=== PATIENT | female | born 1970 | race Caucasian/White ===

== ENCOUNTER 2021-03-21 09:44 | Outpatient (REF) | payer BC, SELFPAY ==
--- NOTE | ~2021-03-21 | XR_ITS ---
EXAMINATION: XR FOOT, LEFT CLINICAL INFORMATION: Pain COMPARISON: Left ankle x-ray 02/23/2021 TECHNIQUE: AP, lateral, and oblique views of the left foot. FINDINGS: Bone alignment is normal. No fracture or dislocation is seen. There is a small osteophyte along the lateral aspect of the IP joint of the great toe. Joint spaces are otherwise normal. There is a small osteophyte projecting off the anterior talus. There is a small plantar calcaneal spur. Soft tissues are unremarkable. XR/XR foot LT min 3V IMPRESSION: Small osteophytes at the IP joint of the great toe, anterior talus and plantar surface of the calcaneus. Otherwise unremarkable exam.
== END 2021-03-21 09:45 | disposition home or self-care (01) ==
LOC: HO.HOSX 09:44
PROVIDERS: PCP Internal Medicine; Visit Provider Physician Assistant
DX: S93.402A Sprain of unspecified ligament of left ankle, initial encounter (principal)
CPT/HCPCS: 73630

== ENCOUNTER 2021-09-01 10:23 | Emergency (ER) | payer BC, SELFPAY ==
--- NOTE | ~2021-09-01 | XR_ITS ---
EXAMINATION: XR CHEST CLINICAL INFORMATION: Shortness of breath. COMPARISON: None TECHNIQUE: Frontal view of the chest was obtained. FINDINGS: No significant abnormality is noted involving the heart, lungs, mediastinum, bony thorax or soft tissues. XR/XR chest 1V IMPRESSION: Unremarkable examination.
[2021-09-01 10:34] VITALS: BP 180/105; PULSE 84; RESP 20; TEMP 36.8; O2SAT 100; BMI 25.0
[2021-09-01 10:59] LABS: COVID-19 Test Negative (Negative); IDNOW Serial# 55D5AD1C
--- NOTE | 2021-09-01 11:17 | ED.URI ---
HPI - URI/Sore Throat General Chief Complaint: Upper Respiratory Symptoms Stated Complaint: Covid+, SOB /Congestion Time Seen by Provider: 09/01/21 10:56 Source: patient Mode of arrival: ambulatory Limitations: no limitations History of Present Illness HPI Narrative: This is a 50 years old female presented to the ED with chief cough or congestion malaise x3 days she is concerned about COVID that she did the test home which was positive. She has no comorbidities MD elicited complaint: rhinorrhea and nasal congestion Onset (ago): day(s) (2) Consistency: constant Severity: mild Description of mucous: clear Able to tolerate fluids by mouth: Yes Exacerbating factors: nothing Relieving factors: nothing Context: sick contacts Associated symptoms: denies other symptoms Related Data Home Medications Medication Instructions Recorded Confirmed aspirin 81 mg tablet,delayed 81 mg PO DAILY 02/23/21 02/23/21 release (Adult Low Dose Aspirin) cyanocobalamin (vitamin B-12) 1,000 mcg IM Q4W ml 02/23/21 02/23/21 1,000 mcg/mL injection solution gabapentin 300 mg capsule 300 mg PO BEDTIME 02/23/21 02/23/21 hydroxyzine HCl 25 mg tablet 25 mg PO TID PRN 02/23/21 02/23/21 lisinopril 10 mg tablet 10 mg PO DAILY 02/23/21 02/23/21 metoprolol succinate 25 mg 25 mg PO DAILY 02/23/21 02/23/21 tablet,extended release 24 hr sertraline 100 mg tablet 100 mg PO DAILY tab 02/23/21 02/23/21 sertraline 25 mg tablet 25 mg PO DAILY 02/23/21 02/23/21 trazodone 50 mg tablet 50 mg PO DAILY 02/23/21 02/23/21 vitamin d PO 02/23/21 albuterol sulfate 90 mcg/actuation 0 mcg INHALATION 03/21/21 aerosol inhaler budesonide-formoterol HFA 160 INHALATION 03/21/21 mcg-4.5 mcg/actuation aerosol inhaler (Symbicort) Previous Rx's Medication Instructions Recorded phenazopyridine 200 mg tablet 200 mg PO TID 3 Days #9 tab 08/14/21 (Pyridium) sulfamethoxazole 800 1 tab PO BID 7 Days #14 tab 08/14/21 mg-trimethoprim 160 mg tablet (Bactrim DS) Allergies Allergy/AdvReac Type Severity Reaction Status Date / Time No Known Allergies Allergy Verified 08/14/21 10:10 Review of Systems Constitutional: Constitutional: Reports no additional constitutional complaints Eyes: Eyes: Reports no additional eye complaints Cardiovascular: Cardiovascular: Reports no additional cardiovascular complaints Respiratory: Respiratory: Reports no additional respiratory complaints Genitourinary: Genitourinary: Reports no additional female genitourinary complaints [facility] Past Medical History Medical History Left ankle sprain Social History Social History Alcohol intake: never Patient Tobacco Use Status: Never used Tobacco Advance Directives: No Advance Directives Information Provided: No Current occupational status: employed 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 Physical Exam Vital Signs: Vital Signs: Last Vital Signs Temp 98.3 F 09/01/21 10:34 Pulse 90 09/01/21 12:45 Resp 19 09/01/21 12:45 BP 150/69 H 09/01/21 12:45 Pulse Ox 97 09/01/21 12:45 BMI result Body Mass Index 25.0 Const: Other: she looks well she has not toxic-appearing General: cooperative and comfortable Nutritional Appearance: average body habitus Orientation/consciousness: patient oriented x3 HEENT: Head: Yes normal to inspection Ears: hearing grossly normal bilaterally General nose exam: Normal external nose present Face and sinus: Yes normal facial exam Mouth: Normal oral and palatal mucosa present Throat: Yes posterior oropharynx normal Neck: Neck: Yes normal visual inspection Chest: Chest palpation & inspection: normal inspection of the chest Breast/axilla inspection: normal inspection of the breasts Resp: Effort & Inspection: normal respiratory effort Auscultation: clear to auscultation bilaterally Cardio: Rate: regular rate Rhythm: regular rhythm GI: Inspection: Yes normal to inspection Palpation (GI): Soft to palpation Percussion: Yes normal to percussion Auscultation: normal bowel sounds Neuro: General: patient oriented x3 Course Reevaluation(s) Reevaluation #1: she remained hemodynamically stable O2 sat is 100%, PCR positive for COVID but the patient can be discharged home a oxygenating well afebrile and nontoxic MDM - URI/Sore Throat MDM Narrative Medical decision making narrative: this is a 50 years old female presented with cough congestion concerned for COVID we will repeat the COVID test will do a chest x-ray Lab Data Labs: Lab Results 09/01/21 09/01/21 Range/Units 10:40 11:19 COVID-19 ([facility]) Negative (Negative) COVID-19 Clin Com See Note Influenza Type A (PCR) NEGATIVE (Negative) Influenza Type B (PCR) NEGATIVE (Negative) RSV RNA Qual (PCR) NEGATIVE (Negative) SARS-CoV-2 RNA (RT-PCR) POSITIVE A (Negative) Imaging Data Chest x-ray: Radiologist's impression: cc: Guzman Ray MD~ EXAMINATION: XR CHEST CLINICAL INFORMATION: Shortness of breath. COMPARISON: None TECHNIQUE: Frontal view of the chest was obtained. FINDINGS: No significant abnormality is noted involving the heart, lungs, mediastinum, bony thorax or soft tissues. XR/XR chest 1V IMPRESSION: Unremarkable examination. ? Dictated By: Rito Power MD Signed By: <Electronically signed by Rito Power MD in OV> 09/01/21 1151 DD/ 1115 Discharge Plan Discharge Clinical Impression: COVID-19 Patient Disposition: Home, Self-Care Instructions: COVID-19 (Coronavirus Disease 2019) (ED) Prescriptions: No Action hydroxyzine HCl 25 mg tablet 25 mg PO TID PRN0RF sertraline 100 mg tablet 100 mg PO DAILY 0RF sertraline 25 mg tablet 25 mg PO DAILY 0RF aspirin [Adult Low Dose Aspirin] 81 mg tablet,delayed release (DR/EC) 81 mg PO DAILY 0RF metoprolol succinate 25 mg tablet extended release 24 hr 25 mg PO DAILY 0RF vitamin d PO 0RF gabapentin 300 mg capsule 300 mg PO BEDTIME 0RF lisinopril 10 mg tablet 10 mg PO DAILY 0RF trazodone 50 mg tablet 50 mg PO DAILY 0RF cyanocobalamin (vitamin B-12) 1,000 mcg/mL solution 1,000 mcg IM Q4W 0RF sulfamethoxazole-trimethoprim [Bactrim DS] 800-160 mg tablet 1 tab PO BID 7 Days Qty: 14 0RF phenazopyridine [Pyridium] 200 mg tablet 200 mg PO TID 3 Days Qty: 9 0RF budesonide-formoterol [Symbicort] 160-4.5 mcg/actuation HFA aerosol inhaler inhalation 0RF albuterol sulfate 90 mcg/actuation HFA aerosol inhaler 0 mcg inhalation 0RF Referrals: No Brambila MD [Primary Care Provider] - 3 days Stand Alone Forms: Work/School Release Interventions: ED Discharge Assessment Last Done: 09/01/21 12:46 Discharge Date/Time: 09/01/21 12:47
[2021-09-01 12:02] LABS: Influenza A PCR NEGATIVE (Negative); Influenza B PCR NEGATIVE (Negative); Resp Syncy Virus RNA Qual PCR NEGATIVE (Negative); SARS COV2 PCR INHOUSE POSITIVE (Negative)
[2021-09-01 12:45] VITALS: BP 150/69; PULSE 90; RESP 19; O2SAT 97
== END 2021-09-01 12:47 | disposition home or self-care (01) ==
PROVIDERS: Emergency Provider Emergency Medicine; PCP Internal Medicine
DX: U07.1 COVID-19 (principal); R06.02 Shortness of breath; Z79.899 Other long term (current) drug therapy; Z79.82 Long term (current) use of aspirin
CPT/HCPCS: 0241U; 71045; 87635; 99283

== ENCOUNTER 2021-09-21 08:32 | Outpatient (REF) | payer BC, SELFPAY ==
[2021-09-21 11:11] LABS: MANUAL DIFF FLAG NO
[2021-09-21 11:15] LABS: Appearance Urine CLEAR; Color Urine YELLOW; Glucose Urine UA NEG (NEG); Leukocyte Esterase Urine NEG (NEG); Nitrite Urine NEG (NEG); Specific Gravity - Urine 1.025 (1.005-1.025); Urine Blood 2+ (NEG); Urine Ketones NEG (NEG); Urine Protein NEG (NEG-TRACE)
[2021-09-21 11:26] LABS: Basophils Percent Auto 0.5 % (0-2); Eosinophils Absolute Auto 0.1 X10*3/uL (0.0-0.4); Eosinophils Percent Auto 0.9 % (0-4); Hematocrit 40.4 % (37.0-47.0); Hemoglobin 13.2 g/dl (12.0-16.0); Imm Gran Abs Auto 0.01 X10*3/uL (0.00-0.03); Imm Gran Pct Auto 0.2 % (0.0-0.4); Lymphocytes Absolute Auto 1.8 X10*3/uL (1.2-4.9); Lymphocytes Percent Auto 32.9 % (20-40); Mean Corpuscular HGB Conc 32.7 g/dl (31.0-35.0); Mean Corpuscular Hemoglobin 30.9 pg (27.0-33.0); Mean Corpuscular Volume 94.6 fL (80.0-98.0); Mean Platelet Volume 9.5 fL (9.4-12.3); Monocytes Absolute Auto 0.4 X10*3/uL (0.1-1.2); Monocytes Percent Auto 7.6 % (2-11); Neutrophils Absolute Auto 3.2 x10*3/uL (2.0-8.3); Neutrophils Percent Auto 57.9 % (45-73); Platelet Count 302 X10*3/uL (160-400); Red Blood Count 4.27 X10*6/uL (4.20-5.50); White Blood Count 5.6 X10*3/uL (4.8-10.8)
[2021-09-21 11:54] LABS: Alanine Aminotransferase 21 U/L (0-31); Albumin Level 4.7 g/dL (3.5-5.0); Alkaline Phosphatase 81 U/L (39-117); Anion Gap 12 (12-20); Aspartate Amino Transferase 27 U/L (5-31); Bilirubin Total 0.3 mg/dL (0.0-1.0); Blood Urea Nitrogen 19 mg/dL (9-16); Calcium 9.9 mg/dL (8.4-10.2); Carbon Dioxide 27 mmol/L (22-29); Chloride 105 mmol/L (96-108); Cholesterol 357 mg/dL; Estimated Glomerular Filt Rate 59; Glucose Fasting 107 mg/dL (60-99); HDL Cholesterol 59 mg/dL; LDL Cholesterol Calculated 256 mg/dl; Potassium 4.4 mmol/L (3.3-5.1); Sodium 140 mmol/L (135-145); TSH reflex Free T4 2.36 uIU/mL (0.32-4.0); Triglycerides 213 mg/dL
[2021-09-21 11:56] LABS: Squamous Epithelial Cell Urine 2+ /LPF
[2021-09-21 11:57] LABS: Bacteria Urine 2+ /LPF
[2021-09-21 11:58] LABS: Amorphous Sediment Urine 1+ /LPF; WBC Urine 0 /HPF (0-4)
== END 2021-09-21 08:33 | disposition home or self-care (01) ==
LOC: HO.HMGCLDS 08:32
PROVIDERS: Visit Provider Internal Medicine
DX: E89.0 Postprocedural hypothyroidism (principal); I10 Essential (primary) hypertension; J44.9 Chronic obstructive pulmonary disease, unspecified; Z98.890 Other specified postprocedural states; Z87.448 Personal history of other diseases of urinary system
CPT/HCPCS: 36415; 80053; 80061; 81001; 84443; 85025

== ENCOUNTER 2021-11-13 09:24 | Outpatient (REF) | payer BC, SELFPAY ==
[2021-11-13 12:14] LABS: C Reactive Protein 0.31 mg/dL (< or = 0.50); Cholesterol 194 mg/dL; HDL Cholesterol 57 mg/dL; LDL Cholesterol Calculated 104 mg/dl; Triglycerides 167 mg/dL
[2021-11-13 12:32] LABS: Erythrocyte Sedimentation Rate 16 MM/HR (0-20)
[2021-11-16 08:51] LABS: Transglutaminase IgA <1.0 U/mL
[2021-11-17 19:22] LABS: Calprotectin, Fecal 5 mcg/g
[2021-11-19 15:22] LABS: Endomysial IgA Antibody Negative (Negative)
== END 2021-11-13 09:25 | disposition home or self-care (01) ==
LOC: HO.HMGCLDS 09:24
PROVIDERS: Absent Provider Physician Assistant; PCP Internal Medicine; Visit Provider Internal Medicine
DX: E78.5 Hyperlipidemia, unspecified (principal); R19.7 Diarrhea, unspecified
CPT/HCPCS: 36415; 80061; 83993; 85652; 86140; 86231; 86364

== ENCOUNTER 2021-12-12 15:09 | Outpatient (REF) | payer BC, SELFPAY ==
--- NOTE | ~2021-12-12 | XR_ITS ---
EXAMINATION: XR RIBS, BILATERAL CLINICAL INFORMATION: Right pleurodynia. No trauma COMPARISON: September 01, 2021 TECHNIQUE: PA chest and three-view right ribs. FINDINGS: Lungs are clear. No consolidation, pneumothorax, or pleural effusion. The cardiomediastinal silhouette and pulmonary vasculature are normal. No acute displaced right rib fracture is seen. There is a question of a permeative pattern as well as some sclerosis involving the anterolateral aspect of the right sixth rib. CT scan may be of help in further evaluation of this finding. XR/XR ribs BI min 4V w CXR1V IMPRESSION: No acute parenchymal disease within the chest. No acute displaced right rib fracture. Question abnormality anterolateral aspect of the right sixth rib.
== END 2021-12-12 15:10 | disposition home or self-care (01) ==
LOC: HO.HMGCX 15:09
PROVIDERS: Visit Provider Physician Assistant
DX: R07.81 Pleurodynia (principal)
CPT/HCPCS: 71111

== ENCOUNTER 2021-12-31 08:18 | Outpatient (REF) | payer BC, SELFPAY ==
--- NOTE | ~2021-12-31 | CT_ITS ---
EXAMINATION: CT CHEST WITHOUT CONTRAST CLINICAL INFORMATION: History of right-sided pleurodynia. Questionable abnormality of anterolateral right sixth rib on chest radiograph. COMPARISON: CXR from 09/01/2021 and radiographs of ribs from 12/12/2021. TECHNIQUE: Multidetector volumetric CT imaging of the chest was done. Axial MIP volume rendering provided. Sagittal and coronal reformatted images were obtained. This CT examination was performed using dose optimization techniques as appropriate, variously including the following: *Automated exposure control *Adjustment of mA and/or kV according to patient size (this includes techniques or standardized protocols for targeted exams where dose is matched to indication/reason for exam; i.e. extremities or head) *Use of iterative reconstruction technique DLP: 130 mGy-cm FINDINGS: LUNGS AND PLEURA: Trachea and central airways are widely patent and normal in caliber. There are several small foci of mucus plugging in right and left upper lobe bronchi. There appears to be minimal centrilobular emphysema of upper lobes. No interstitial lung disease. Small, 0.2 cm calcified granuloma of the lateral left lung apex. A solid, smoothly marginated noncalcified nodule of 0.4 cm average diameter is present in the lateral left lower lobe (image 478, series 7). 0.4 cm solid nodule of the lingula (image 371, series 7). No pulmonary mass, consolidation or pleural effusion. CARDIOVASCULAR: The heart size is normal. No pericardial effusion. Thoracic aorta and pulmonary arteries are normal in caliber. MEDIASTINUM AND LOWER NECK: No mediastinal mass. The esophagus is unremarkable. The left thyroid lobe is absent. LYMPHATICS: No pathologic sized lymph nodes. UPPER ABDOMEN: 1.1 cm simple cyst in the left lobe of the liver. SKELETAL AND CHEST WALL: Mild and moderate multilevel discovertebral degenerative change of the thoracic spine. Chronic mild anterior height loss of the T8 vertebral body. No acute fractures. No suspicious bone lesions. Specifically, no evidence of a permeative lesion of the right sixth rib. CT/CT chest wo con IMPRESSION: * Several small foci of mucus plugging are observed in upper lobe bronchi. This is compatible with sequela of inflammation of airways. No evidence of pneumonia, mass or lymphadenopathy. * Small calcified and noncalcified pulmonary nodules are detected. Based on use of Fleischner Society guidelines for incidentally detected nodules of < 0.6 cm size, chest CT follow-up is not recommended in a low-risk patient and is considered optional (at 12 months) and a high risk patient. * No suspicious bone lesions.
== END 2021-12-31 08:19 | disposition home or self-care (01) ==
LOC: HO.CT 08:18
PROVIDERS: PCP Internal Medicine; Visit Provider Internal Medicine
DX: M89.9 Disorder of bone, unspecified (principal); R91.8 Other nonspecific abnormal finding of lung field
CPT/HCPCS: 71250

== ENCOUNTER 2022-01-19 10:11 | Outpatient (REF) | payer BC, SELFPAY ==
--- NOTE | ~2022-01-19 | MM_ITS ---
EXAMINATION: MM SCREENING DIGITAL BREAST TOMOSYNTHESIS, BILATERAL CLINICAL INFORMATION: Screening. Asymptomatic. The lifetime risk of breast cancer based on the Tyrer-Cuzick Model is 5%. COMPARISON: Outside mammography: 09/12/2018, 08/30/2017 ([facility] [place]). TECHNIQUE: Digital breast tomosynthesis is performed in both the craniocaudal and mediolateral oblique views along with computer-aided detection (CAD). Synthesized 2D images are generated from the tomosynthesis. Additional exaggerated bilateral CC and views are provided. FINDINGS: The breasts are heterogeneously dense, which may obscure small masses (ACR BI-RADS breast composition Category c). Breast tissue composition borders on average fibroglandular. There is no interval mass or architectural abnormality or developing density. The axilla and skin contours are unremarkable. There are scattered punctate calcifications right breast. Left breast has interval multiple punctate regional calcifications central and lower outer breast. Patient will be recalled for additional imaging to further characterize. MM/MM tomosynthesis screening BI IMPRESSION: Left: -Multiple regional punctate calcifications central and lower outer left breast. Right: -No mammographic evidence of malignancy. ASSESSMENT: BI-RADS 0: Incomplete - Need Additional Imaging Evaluation RECOMMENDATION: 1. Additional views of the left breast (magnification CC, magnification ML). 2. Radiology department staff will contact the patient for additional imaging. This patient's information was entered into a reminder system with a target due date for their next mammogram.
== END 2022-01-19 10:12 | disposition home or self-care (01) ==
LOC: HO.MAMMO 10:11
PROVIDERS: PCP Internal Medicine; Visit Provider Internal Medicine
DX: Z12.31 Encounter for screening mammogram for malignant neoplasm of breast (principal)
CPT/HCPCS: 77063; 77067

== ENCOUNTER 2022-02-01 14:35 | Outpatient (REF) | payer BC, SELFPAY ==
--- NOTE | ~2022-02-01 | MM_ITS ---
EXAMINATION: MM DIAGNOSTIC DIGITAL MAMMOGRAPHY, LEFT CLINICAL INFORMATION: Recall for regional calcifications central lower outer left breast. TC score 5%. COMPARISON: Mammography: 01/19/2022, outside mammography 09/12/2018, 08/30/2017 ([place]). TECHNIQUE: Digital mammography is performed in the following views: Magnification CC x2, magnification ML x3. FINDINGS: The breasts are heterogeneously dense, which may obscure small masses (ACR BI-RADS breast composition Category c). The additional views demonstrate loosely grouped regional calcifications central posterior central lower outer left breast. There were also similar calcifications in this area on outside imaging dating back to 2018. There is questionable mild increased, difficult to confirm given comparison of magnification views currently with prior standard mammography. Left breast will be reassessed again with mammography in 6 months. Results are provided to the patient and her spouse at time of visit. MM/MM added views LT IMPRESSION: Probable benign chronic calcifications central lower outer left breast. ASSESSMENT: BI-RADS 3: Probably Benign RECOMMENDATION: Diagnostic left mammography in 6 months. This patient's information was entered into a reminder system with a target due date for their next mammogram.
== END 2022-02-01 14:36 | disposition home or self-care (01) ==
LOC: HO.MAMMO 14:35
PROVIDERS: PCP Internal Medicine; Visit Provider Internal Medicine
DX: R92.1 Mammographic calcification found on diagnostic imaging of breast (principal)
CPT/HCPCS: 77065

== ENCOUNTER 2022-02-12 05:51 | Inpatient (IN) | payer BC, SELFPAY ==
[2022-02-12] VITALS (21 sets, daily range): BP systolic 96–126; BP diastolic 57–75; PULSE 68–133; RESP 16–21; TEMP 36.5–37.7; O2SAT 95–972; BMI 20.7
--- NOTE | ~2022-02-12 | CT_ITS ---
EXAMINATION: CT ABDOMEN AND PELVIS WITH CONTRAST CLINICAL INFORMATION: Abdominal pain and vomiting. COMPARISON: None TECHNIQUE: Multidetector volumetric images were obtained from the superior aspect of the liver through the pubic symphysis following administration 85 mL of Omnipaque 350 intravenous contrast. Sagittal and coronal reformatted images were obtained on the technologist's workstation. Oral contrast: No This CT examination was performed using dose optimization techniques as appropriate, variously including the following: *Automated exposure control *Adjustment of mA and/or kV according to patient size (this includes techniques or standardized protocols for targeted exams where dose is matched to indication/reason for exam; i.e. extremities or head) *Use of iterative reconstruction technique DLP: 415 mGy-cm FINDINGS: LUNG BASES: Mild dependent atelectasis in the lower lobes. No pleural or pericardial effusions. LIVER, GALLBLADDER, AND BILIARY TREE: Several low-attenuation foci are seen throughout the liver one of the largest is seen in segment IVb measuring 1.3 cm (image 25, series 3). No gallbladder/biliary abnormality. PANCREAS: Unremarkable. SPLEEN: Unremarkable. ADRENAL GLANDS: Unremarkable. KIDNEYS AND URETERS: The kidneys are normal in size, shape, and attenuation. A noncalcified, fluid attenuation cyst in the lower pole left kidney measures 1.2 cm (image 66, series 5). No hydronephrosis, hydroureter, or calculi seen. No perinephric stranding. BLADDER: Unremarkable. GASTROINTESTINAL TRACT: The stomach and proximal small bowel are unremarkable. The terminal ileum shows mild mural fatty replacement without surrounding abnormality. The appendix extends into the right hemipelvis with moderate mural thickening, surrounding infiltrative changes and mild adjacent fluid. No definitive abscess formation or perforation. The colon shows scattered diverticuli, most pronounced in the descending and sigmoid colon without surrounding abnormality. ABDOMINAL WALL: No significant hernia is appreciated. LYMPH NODES: No lymphadenopathy. VASCULAR: Unremarkable. PELVIC VISCERA: Status post hysterectomy. No adnexal abnormality. OSSEOUS STRUCTURES: Unremarkable. CT/CT abdomen pelvis w IV con IMPRESSION: 1. Abnormal appendix most consistent with acute appendicitis without evidence for perforation or abscess formation. 2. Mild colonic diverticulosis without evidence for acute diverticulitis. 3. Hepatic and renal cysts demonstrate benign features not requiring follow-up.
[2022-02-12 06:48] LABS: COVID-19 Test Negative (Negative); IDNOW Serial# 9DB6401D
--- NOTE | 2022-02-12 06:48 | ECG_ITS ---
Test Reason : abdominal pain Blood Pressure : / mmHG Vent. Rate : 123 BPM Atrial Rate : 123 BPM P-R Int : 096 ms QRS Dur : 074 ms QT Int : 416 ms P-R-T Axes : 000 067 055 degrees QTc Int : 595 ms Sinus tachycardia with short ND ST & T wave abnormality, consider anterior ischemia Abnormal ECG No previous ECGs available Referred By: Elly Nagel Electronically Signed By:PARUL WILLOUGHBY
--- NOTE | 2022-02-12 07:06 | ED_ITS ---
HPI - Abdominal Pain General Chief Complaint: Abdominal Pain Stated Complaint: abd pain, vomiting Time Seen by Provider: 02/12/22 06:47 Source: patient Mode of arrival: ambulatory Limitations: no limitations History of Present Illness HPI narrative: 51 yo female hx of COPD, HTN, prior hysterectomy here with c/[place] [employer] [place] developed abdominal cramps - threw up until Friday morning. Since yesterday worsening RLQ pain hurts to move, no diarrhea, has fevers/chills, nausea. Pain has only gotten worse. + flatus this AM. MD elicited complaint: abdominal pain Pertinent past history: none Onset (ago): day(s) (2) Pain Consistency: constant Location: RLQ Severity: severe Quality: stabbing Radiation: none Exacerbating factors: vomiting and movement Relieving factors: nothing Associated symptoms: nausea, vomiting, fever and chills Related Data Home Medications Medication Instructions Recorded Confirmed hydroxyzine HCl 25 mg tablet 25 mg PO TID PRN 02/23/21 11/21/21 metoprolol succinate 25 mg 25 mg PO DAILY 02/23/21 11/21/21 tablet,extended release 24 hr trazodone 50 mg tablet 50 mg PO DAILY 02/23/21 11/21/21 vitamin d PO 02/23/21 11/21/21 Previous Rx's Medication Instructions Recorded albuterol sulfate 90 mcg/actuation 2 puff inhalation Q4H #8.5 grams 09/21/21 aerosol inhaler budesonide-formoterol HFA 160 2 puff inhalation BID #10.2 grams 09/21/21 mcg-4.5 mcg/actuation aerosol inhaler (Symbicort) cyanocobalamin (vitamin B-12) 1,000 mcg IM Q4W #10 mL 09/21/21 1,000 mcg/mL injection solution gabapentin 300 mg capsule 300 mg PO BEDTIME #90 caps 09/21/21 insulin syr/ndl U100 half anthony 0.3 #100 ea 09/21/21 mL 31 gauge x 5/16 (BD Insulin Syringe Ultra-Fine (half unit)) lisinopril 20 mg tablet 20 mg PO DAILY #90 tabs 09/21/21 rosuvastatin 20 mg tablet (Crestor) 20 mg PO DAILY #90 tabs 09/28/21 aspirin 81 mg tablet,delayed 81 mg PO DAILY #90 tabs 10/01/21 release (Adult Low Dose Aspirin) loperamide 2 mg tablet (Imodium 2 mg PO Q6H PRN loose stool #30 11/21/21 A-D) tabs methylcellulose (laxative) 500 mg 500 mg PO BID #60 tabs 11/21/21 tablet (Citrucel) cyclobenzaprine 10 mg tablet 10 mg PO BEDTIME PRN muscle spasm 12/12/21 #14 tabs lidocaine 4 % topical patch 1 patch topical DAILY PRN pain #15 12/12/21 (AsperFlex (lidocaine)) ea prednisone 20 mg tablet 20 mg PO DAILY 5 days #5 tabs 12/12/21 bisacodyl 5 mg tablet,delayed 10 mg PO ONCE Bowel Preparation 1 01/01/22 release (Dulcolax (bisacodyl)) day #2 tabs polyethylene glycol 3350 17 238 g PO ONCE 1 day #238 grams 01/01/22 gram/dose oral powder (Miralax) sertraline 25 mg tablet 25 mg PO DAILY #90 tabs 01/17/22 sertraline 100 mg tablet 100 mg PO DAILY #90 tabs 01/23/22 Allergies Allergy/AdvReac Type Severity Reaction Status Date / Time No Known Allergies Allergy Verified 12/12/21 14:55 Review of Systems Review of Systems Constitutional : No Weight loss, pos Fever, pos Chills ENT/Mouth : No sore throat, No Rhinorrhea Eyes: No Swelling, No Redness Cardiovascular : No Chest Pain, No SOB, NoEdema Respiratory : No Cough, No Sputum, No Wheezing Gastrointestinal : Positive Nausea, Positive Vomiting, no Diarrhea, positive abdominal Pain, No Hematochezia, No Melena Genitourinary : No Dysuria, No Urinary Frequency, No Hematuria, No Urgency Musculoskeletal : No joint pain, No Myalgias, No Joint Swelling Skin : No Skin Lesions, No rash Neuro : No Weakness, No Numbness, No Dizziness, No Headache Psych : No Anxiety/Panic, No Depression Heme/Lymph: No Bruising, No Lymphadenopathy Endocrine : No Polyuria, No Polydipsia All other systems reviewed and are negative. FORMERLY [facility], [facility] Past Medical History Attestation statement: The following information was validated with the patient. 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 Housing: House Alcohol intake: never Patient Tobacco Use Status: Former Tobacco user e-Cigarette/Vaping Use: Never Used Advance Directives: Yes Advance Directives on File: Yes Advance Directives Date on File: 02/12/22 Current occupational status: employed 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 Oriented X3. in pain mild acute distress. Eyes: Pupils equal, round and reactive to light. ENT: Pharynx mild dry MM Neck: Normal inspection. Neck supple. CVS: tachycardic heart rate and rhythm. Pulses normal. Respiratory: No respiratory distress. Breath sounds normal. Abdomen: Soft with severe ttp in RLQ + rebound, + rovsing's sign Skin: Skin warm and dry. Normal skin color. Normal skin turgor. Extremities: No lower extremity edema. No calf ttp Neuro: Oriented X 3. No motor deficit. No sensory deficit. Course Course Course Narrative: message sent to Dr. Lloyd 920am given appendicitis qtc corrected with magnesium and K - Dr. Walko aware, has no CP/SOB, trop flat plan to admit for surgery MDM - Abdominal Pain MDM Narrative Medical decision making narrative: 51 yo female hx of COPD, HTN, prior hysterectomy here with n/v fever chills RLQ pain she is tachycardic with temp of 100. She never had diarrhea so colitis seems unlikely. At this time labs, cultures, lactic acid, IVF x 2L, empiric zosyn ordered for suspected appendicitis with possible rupture - CT scan. Will notify surgery. Lab Data Result diagrams: 02/12/22 07:09 02/12/22 07:09 Labs: Lab Results 02/12/22 02/12/22 02/12/22 Range/Units 06:25 07:09 07:09 WBC 9.2 (4.8-10.8) X10*3/uL RBC 4.74 (4.20-5.50) X10*6/uL Hgb 14.6 (12.0-16.0) g/dl Hct 44.3 (37.0-47.0) % MCV 93.5 (80.0-98.0) fL MCH 30.8 (27.0-33.0) pg MCHC 33.0 (31.0-35.0) g/dl RDW 12.3 (11.0-16.0) % Plt Count 294 (160-400) X10*3/uL MPV 9.1 L (9.4-12.3) fL Immature Gran % (Auto) 0.3 (0.0-0.4) % Neut % (Auto) 89.2 H (45-73) % Lymph % (Auto) 6.7 L (20-40) % [place] % (Auto) 3.6 (2-11) % Eos % (Auto) 0.0 (0-4) % Baso % (Auto) 0.2 (0-2) % Lymph # (Auto) 0.6 L (1.2-4.9) X10*3/uL [place] # (Auto) 0.3 (0.1-1.2) X10*3/uL Eos # (Auto) 0.0 (0.0-0.4) X10*3/uL Baso # (Auto) 0.0 (0.0-0.2) X10*3/uL Abs Immat Gran (auto) 0.03 (0.00-0.03) X10*3/uL Absolute Neuts (auto) 8.2 (2.0-8.3) x10*3/uL Absolute Nucleated RBC 0.000 (0.0-0.012) X10*3/uL Nucleated RBC % (auto) 0.0 (0.0-0.2) /100WBC PT (10.0-13.1) SEC INR (0.9-1.1) Sodium 138 (135-145) mmol/L Potassium 3.6 (3.3-5.1) mmol/L Chloride 98 (96-108) mmol/L Carbon Dioxide 22 (22-29) mmol/L Anion Gap 22 H (12-20) BUN 22 H (9-16) mg/dL Creatinine 1.18 (0.5-1.4) mg/dL Estim Creat Clear Calc 49.9 Estimated GFR 48 Random Glucose 130 H (60-115) mg/dL Lactic Acid (0.5-2.0) mmol/L Calcium 9.8 (8.4-10.2) mg/dL Magnesium 1.9 (1.6-2.6) mg/dL Total Bilirubin 1.2 H (0.0-1.0) mg/dL Direct Bilirubin 0.5 (0.0-0.5) mg/dL AST 17 (5-31) U/L ALT 15 (0-31) U/L Alkaline Phosphatase 103 D (39-117) U/L Troponin I High Sens (<3.5-17.0) ng/L Total Protein 8.7 H (6.5-8.0) g/dL Albumin 5.2 H (3.5-5.0) g/dL Lipase 13 (8-78) U/L COVID-19 (MARQUITA) Negative (Negative) COVID-19 Clin Com See Note 02/12/22 02/12/22 02/12/22 Range/Units 07:09 07:09 07:09 WBC (4.8-10.8) X10*3/uL RBC (4.20-5.50) X10*6/uL Hgb (12.0-16.0) g/dl Hct (37.0-47.0) % MCV (80.0-98.0) fL MCH (27.0-33.0) pg MCHC (31.0-35.0) g/dl RDW (11.0-16.0) % Plt Count (160-400) X10*3/uL MPV (9.4-12.3) fL Immature Gran % (Auto) (0.0-0.4) % Neut % (Auto) (45-73) % Lymph % (Auto) (20-40) % [place] % (Auto) (2-11) % Eos % (Auto) (0-4) % Baso % (Auto) (0-2) % Lymph # (Auto) (1.2-4.9) X10*3/uL [place] # (Auto) (0.1-1.2) X10*3/uL Eos # (Auto) (0.0-0.4) X10*3/uL Baso # (Auto) (0.0-0.2) X10*3/uL Abs Immat Gran (auto) (0.00-0.03) X10*3/uL Absolute Neuts (auto) (2.0-8.3) x10*3/uL Absolute Nucleated RBC (0.0-0.012) X10*3/uL Nucleated RBC % (auto) (0.0-0.2) /100WBC PT 12.9 (10.0-13.1) SEC INR 1.1 (0.9-1.1) Sodium (135-145) mmol/L Potassium (3.3-5.1) mmol/L Chloride (96-108) mmol/L Carbon Dioxide (22-29) mmol/L Anion Gap (12-20) BUN (9-16) mg/dL Creatinine (0.5-1.4) mg/dL Estim Creat Clear Calc Estimated GFR Random Glucose (60-115) mg/dL Lactic Acid 1.9 (0.5-2.0) mmol/L Calcium (8.4-10.2) mg/dL Magnesium (1.6-2.6) mg/dL Total Bilirubin (0.0-1.0) mg/dL Direct Bilirubin (0.0-0.5) mg/dL AST (5-31) U/L ALT (0-31) U/L Alkaline Phosphatase (39-117) U/L Troponin I High Sens < 3.5 (<3.5-17.0) ng/L Total Protein (6.5-8.0) g/dL Albumin (3.5-5.0) g/dL Lipase (8-78) U/L COVID-19 ([facility]) (Negative) COVID-19 Clin Com ECG Data Attestation: I personally reviewed and interpreted this ECG as follows: ECG interpretation date: 02/12/22 ECG interpretation time: 07:10 Interpretation: Rate: 123 Rhythm: sinus tachycardia [place]: normal Normal P waves. Normal ARSEN. Normal QRS complex. ST T wave : no FRIEDA, inverted t waves inf and anterior leads no prior EKGs available qTC: prolonged 595 prior studies: none The study has been interpreted contemporaneously by me. EKG#2 Rate: 85 Rhythm: NSR [place]: normal Normal P waves. Normal ARSEN. Normal QRS complex. ST T wave : no FRIEDA nonspecific ST wave changes anterior leads qTC: prolonged but shorter 478 prior studies: qtc improved The study has been interpreted contemporaneously by me. . Critical Care Time Critical Care Time Critical Care Time: Yes Total Critical Care Time: 45 Attestation: IVF x 2L, repeat pain medications, lyte repletion, medical consult I attest to this time spent taking care of the patient Discharge Plan Discharge Clinical Impression: Prolonged QT interval Abdominal pain Qualifiers: Abdominal location: right lower quadrant Qualified Code(s): R10.31 - Right lower quadrant pain Acute appendicitis Qualifiers: Acute appendicitis type: with localized peritonitis Appendicitis gangrene presence: without gangrene Appendicitis perforation presence: without perforation Appendicitis abscess presence: without abscess Qualified Code(s): K35.30 - Acute appendicitis with localized peritonitis, without perforation or gangrene Patient Disposition: Admitted As Inpatient
[2022-02-12] MEDS: ondansetron HCL 4 MG/2 ML VIAL IVPUSH (07:11)
[2022-02-12] MEDS: Acetaminophen 325 MG TABLET 650 MG PO (07:12)
[2022-02-12] MEDS: Morphine Sulfate 4 MG/ML CARTRIDGE IVPUSH (07:12)
[2022-02-12] MEDS: Piperacillin Sodium/Tazobactam 3.375 GM in 0.9 % Sodium Chloride 50 ML IV ×3 (07:13→21:38)
[2022-02-12 07:14] LABS: MANUAL DIFF FLAG NO
[2022-02-12 07:15] LABS: Basophils Percent Auto 0.2 % (0-2); Hematocrit 44.3 % (37.0-47.0); Hemoglobin 14.6 g/dl (12.0-16.0); Imm Gran Abs Auto 0.03 X10*3/uL (0.00-0.03); Imm Gran Pct Auto 0.3 % (0.0-0.4); Lymphocytes Absolute Auto 0.6 X10*3/uL (1.2-4.9); Lymphocytes Percent Auto 6.7 % (20-40); Mean Corpuscular Hemoglobin 30.8 pg (27.0-33.0); Mean Corpuscular Volume 93.5 fL (80.0-98.0); Mean Platelet Volume 9.1 fL (9.4-12.3); Monocytes Absolute Auto 0.3 X10*3/uL (0.1-1.2); Monocytes Percent Auto 3.6 % (2-11); Neutrophils Absolute Auto 8.2 x10*3/uL (2.0-8.3); Neutrophils Percent Auto 89.2 % (45-73); Platelet Count 294 X10*3/uL (160-400); Red Blood Count 4.74 X10*6/uL (4.20-5.50); Red Cell Distribution Width 12.3 % (11.0-16.0); White Blood Count 9.2 X10*3/uL (4.8-10.8)
[2022-02-12 07:21] LABS: INTERNATIONAL NORM RATIO 1.1 (0.9-1.1); Prothrombin Time 12.9 SEC (10.0-13.1)
[2022-02-12 07:32] LABS: Lactic Acid 1.9 mmol/L (0.5-2.0)
[2022-02-12] MEDS: Magnesium Sulfate/H2O 2 GM/50 ML PIGGYBACK IV (08:00)
--- NOTE | 2022-02-12 08:04 | PC.NURSE ---
pain improved tp 5/10, sr on monitor, no n/v, nad
[2022-02-12 08:14] LABS: Alanine Aminotransferase 15 U/L (0-31); Albumin Level 5.2 g/dL (3.5-5.0); Alkaline Phosphatase 103 U/L (39-117); Anion Gap 22 (12-20); Aspartate Amino Transferase 17 U/L (5-31); Bilirubin Direct 0.5 mg/dL (0.0-0.5); Bilirubin Total 1.2 mg/dL (0.0-1.0); Blood Urea Nitrogen 22 mg/dL (9-16); Calcium 9.8 mg/dL (8.4-10.2); Carbon Dioxide 22 mmol/L (22-29); Chloride 98 mmol/L (96-108); Creatinine Clr Calc Pharmacy 49.9; Estimated Glomerular Filt Rate 48; Glucose Random 130 mg/dL (60-115); Lipase 13 U/L (8-78); Magnesium 1.9 mg/dL (1.6-2.6); Potassium 3.6 mmol/L (3.3-5.1); Sodium 138 mmol/L (135-145); Total Protein 8.7 g/dL (6.5-8.0)
[2022-02-12] MEDS: iohexoL 350 MG/ML 100 ML INFUS..BTL IV (08:33)
[2022-02-12 08:39] LABS: Troponin-I High Sensitivity < 3.5 ng/L (<3.5-17.0)
[2022-02-12] MEDS: HYDROmorphone HCl 0.5 MG/0.5 ML SYRINGE IVPUSH ×5 (08:47→23:39)
[2022-02-12] MEDS: Ketorolac Tromethamine 30 MG/ML VIAL 15 MG IVPUSH (08:48)
[2022-02-12] MEDS: 0.9 % Sodium Chloride 1,000 ML 999 ML IVCONT (08:48)
--- NOTE | 2022-02-12 09:30 | MHC.CM.ED ---
Received notification from [facility] of registration that patient is requesting to complete a HCP. Met with patient. HCP completed, signed and witnessed. Original given to patient. Copy placed in chart. Continue to monitor for d/c needs.
[2022-02-12] MEDS: 0.9 % Sodium Chloride 500 ML 999 ML IV (09:35)
[2022-02-12] MEDS: Potassium Chloride/H20 10 MEQ/100 ML PIGGYBACK 100 MEQ IV ×2 (09:39→10:45)
--- NOTE | 2022-02-12 09:51 | ECG_ITS ---
Test Reason : ABDOMINAL PAIN Blood Pressure : / mmHG Vent. Rate : 085 BPM Atrial Rate : 085 BPM P-R Int : 170 ms QRS Dur : 082 ms QT Int : 402 ms P-R-T Axes : 036 030 004 degrees QTc Int : 478 ms Normal sinus rhythm Nonspecific ST and T wave abnormality Prolonged QT Abnormal ECG When compared with ECG of 12-FEB-2022 06:57, NV interval has increased Heart rate has decreased QT has shortened Referred By: Elly Nagel Electronically Signed By:PARUL WILLOUGHBY
--- NOTE | 2022-02-12 09:58 | PM.HPGS ---
History of Present Illness History of Present Illness Date of Service: 02/12/22 Chief complaint: abd pain, vomiting Narrative: Demetria Reyes is a 51 year old female with several days of abdominal pain localizing to the right lower quadrant and a full day of vomiting related to the pain. She presented the emergency department was noted to have acute appendicitis on CT. Patient denies any personal or family history of GI malignancy but endorses a family history of cardiac disease affecting both parents. To the best of her knowledge, she has no cardiac history. She has a history of COPD and quit smoking about 7 years ago. She does report a history of a thyroid surgery. Review of Systems Review of Systems: Yes all other systems are reviewed and are negative Constitutional: Constitutional: Reports as per [facility] Past Medical History Medical History Annual physical exam Anxiety Bilateral hand numbness COPD (chronic obstructive pulmonary disease) Diarrhea Eating disorder HTN (hypertension) Hyperlipidemia Left ankle sprain Family History Family History Brother Substance use disorder Brother Substance use disorder Mother Mental health disorder [place] (myocardial infarction), Onset Age: 64 Surgical History Surgical History History of bladder suspension procedure History of thyroidectomy Hx of hysterectomy Social History Social History 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:: , 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, 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 Housing: House Alcohol intake: never Patient Tobacco Use Status: Former Tobacco user e-Cigarette/Vaping Use: Never Used Advance Directives: Yes Advance Directives on File: Yes Advance Directives Date on File: 02/12/22 Current occupational status: employed 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 Cognitive needs: No Hearing needs: No Vision needs: Yes Meds Allergies Allergy/AdvReac Type Severity Reaction Status Date / Time No Known Allergies Allergy Verified 12/12/21 14:55 Active Medications: Current Medications Potassium Chloride (Potassium Chloride/H20) 10 meq in 100 mls @ 100 mls/hr IV Q1H DELFINA Stop: 02/12/22 10:29 Last Admin: 02/12/22 09:39 Dose: 100 mls/hr Pharmacy Consult (Consult Rx Perform Med Rec) 1 each MISCELLANE ONCE PRN PRN Reason: Consult order Home Medications Medication Instructions Recorded Confirmed Last Taken Type hydroxyzine HCl 25 mg tablet 25 mg PO TID PRN 02/23/21 11/21/21 Unknown History trazodone 50 mg tablet 50 mg PO DAILY 02/23/21 11/21/21 Unknown History Physical Exam Vital Signs: Vital Signs: Last Vital Signs Temp 98.1 F 02/12/22 07:50 Pulse 87 02/12/22 09:46 Resp 19 02/12/22 09:46 BP 117/67 02/12/22 09:46 Pulse Ox 98 02/12/22 09:33 O2 Del Method 02/12/22 09:33 BMI result Body Mass Index 20.7 The patient is non-toxic & in good spirits NC/AT, PERRLA, EOMI Mood, affect & judgment all appear appropriate Sclera anicteric conjunctiva pink and moist Oropharynx is clear with no aphthous ulcers, Mallampati class 4, mucous membranes moist Neck is supple with no masses, adenopathy or bruits Heart is regular, normal S1-S2 no rubs or murmurs Lungs are clear and equal anteriorly with no audible wheezing, rubs or dullness to percussion Abdomen is overweight with no demonstrable hernias. Right lower quadrant tenderness with peritoneal irritation to percussion is present. No HSM, rebound, rigidity, guarding, masses or bruits are present. Rectal exam is deferred Skin has good turgor and is free of rashes Extremities free of cyanosis clubbing edema Results Results Labs: Short CBC 02/12/22 Range/Units 07:09 WBC 9.2 (4.8-10.8) X10*3/uL Hgb 14.6 (12.0-16.0) g/dl Hct 44.3 (37.0-47.0) % Plt Count 294 (160-400) X10*3/uL BMP 02/12/22 07:09 Sodium 138 Potassium 3.6 Chloride 98 Carbon Dioxide 22 BUN 22 H Creatinine 1.18 Calcium 9.8 Liver Function 02/12/22 Range/Units 07:09 Total Bilirubin 1.2 H (0.0-1.0) mg/dL Direct Bilirubin 0.5 (0.0-0.5) mg/dL AST 17 (5-31) U/L ALT 15 (0-31) U/L Alkaline Phosphatase 103 D (39-117) U/L Albumin 5.2 H (3.5-5.0) g/dL Abdomen CT scan report/results: report reviewed and image reviewed CT scan - pelvis: report reviewed and image reviewed Assessment and Plan (1) Acute appendicitis: Qualifiers: Acute appendicitis type: with localized peritonitis Appendicitis abscess presence: without abscess Appendicitis gangrene presence: without gangrene Appendicitis perforation presence: without perforation Qualified Code(s): K35.30 - Acute appendicitis with localized peritonitis, without perforation or gangrene Status: Acute (2) Prolonged QT interval: Status: Acute (3) Abdominal pain: Qualifiers: Abdominal location: right lower quadrant Qualified Code(s): R10.31 - Right lower quadrant pain Status: Acute (4) Hyperlipidemia: Status: Acute (5) History of thyroidectomy: Status: Acute Plan I reviewed the options of medical management with IV antibiotics versus operative exploration and appendectomy. I recommended proceeding with an appendectomy and reviewed the plan for laparoscopic or possible open appendectomy. I reviewed the inherent risks of bleeding, infection, need for another procedure in the event of a complication such as an abscess or bleeding, possibility then unexpected pathology could be encountered and that I would address it intraoperatively were all reviewed. Activity restrictions were also reviewed and apparently understood. The patient and her seemed understand my explanation and recommendation. Their questions seemed to be satisfactorily answered. In communicating with the ER attending, the patient is getting hydrated, getting potassium and a repeat EKG to assess QT interval is pending. Follow-up EKG was okay per Dr. Nagel. NPO, IV fluids. Pain management. Void urinary bladder communications equipment installer to OR, sequential compression stockings and Ancef, IV communications equipment installer. Quality Stroke Does the patient have a stroke diagnosis?: No VTE Prior VTE?: No VTE Risk Level:: Surgical - low VTE Device Contraindication: N/A - Device Ordered VTE Drug Contraindication: N/A - Med Ordered Procedures Date of Service Date of Service: 02/12/22
[2022-02-12] MEDS: Lactated Ringers 1,000 ML 100 ML IVCONT ×2 (11:07→16:26)
--- NOTE | 2022-02-12 11:14 | PHA.MEDREC ---
Pharmacy Consult ? Medication Reconciliation Pharmacy has completed the medication reconciliation.
--- NOTE | 2022-02-12 11:52 | W.PM.OPN ---
Operative Note Operative Note Date of Service: 02/12/22 Narrative: Preop diagnosis: [Acute appendicitis] Postop diagnosis: [Perforated acute appendicitis] Procedure: [Laparoscopic appendectomy] Surgeon: Srinivasan Lloyd MD Assist: [None] Anesthesia: [General endotracheal; ropivacaine 0.5% plain] Estimated blood loss: [3cc] Specimen: [1) peritoneal fluid for Gram stain and culture; 2) perforated appendix] Intraoperative findings: [The appendix was gangrenous and perforated and contained by the patient's omentum which was trapped in her prior hysterectomy scar tissue] Indications: [The patient is a 51-year-old woman who presented after several days of abdominal pain localizing to her right lower quadrant. She also had profound vomiting and was slightly dehydrated. Following volume resuscitation, the option of appendectomy versus medical management was reviewed with the patient and her . The inherent risks to surgery which include, but are not limited to: Bleeding that could require another procedure; need for open surgery; possibility of encountering unexpected pathology that could change her management; risk of negative exploration, and postoperative activity restrictions were reviewed and apparently understood. The patient seemed understand and gave consent to proceed.] Procedure: [The patient was identified in preoperative holding and again in the operating suite. She received Ancef, 2 g IV on-call in sequential compression stockings were in place. She was placed supine on the table in the operating suite, induced in general endotracheal anesthesia administered with excellent effect. Due to the preoperative pain, patient did not void on-call and had a Li catheter placed by nursing staff. Her legs the were then returned to supine position, safety harness secured and her abdomen widely prepped and draped in the usual manner for surgery using chlorhexidine. Preemptive local was used at all trocar site insertion sites. The begin of the supraumbilical midline it, and after infiltrating ropivacaine, 0.5%, a transverse 5 mm skin incision was made sharply and a Veress needle inserted without incident. An appropriate drop test was performed and a pneumoperitoneum of 15 mmHg was obtained using carbon dioxide. Opening pressure was 7 mmHg. Once 15 mmHg abdominal pressure was obtained, the Veress needle was removed and Optiview 5 mm trocar used to insert the laparoscoped into the peritoneal space without issue. A 5 mm 30 degree scope was used. Upon entering the abdomen, explored for evidence of injury from the Veress needle or trocar and found none, however there was turbid fluid running along the right pericolic gutter over the liver and into the pelvis. Additional 5 mm suprapubic trocar was placed and a 12 mm left lower quadrant trocar placed under direct laparoscopic vision using preemptive local. The patient was then placed in gentle Trendelenburg and banked to her right. A Lukens trap and the suction irrigation system was used to aspirate the purulence fluid from the peritoneal space and sent it for Gram stain and culture. The cecum was identified in the appendiceal base was identified, however the omentum was densely adherent down into the pelvis and trapped the distal 3/4 of the appendix. As I came through the mesoappendix with a grasper, grossly purulence and feculent material was encountered. The appendix was grossly gangrenous and perforated which had been contained by the omentum. Once the appendiceal base was identified on the cecum, a Covidien 30 mm purple staple load was fired across the base. Next, 5 mm LigaSure [place] tip was used to divide the mesoappendix. The specimen was then placed in an Endo-Catch bag and retrieved through the 12 mm trocar in the left lower quadrant. The suction irrigation system was used to copiously irrigate the peritoneal space and aspirate the fluid. When the saline returned clear, the staple line on the cecum and the mesoappendix were inspected and found to be intact and dry. Abdomen was deflated slightly and the mesoappendix and staple line on the cecum examined again and found to be intact. The 12 mm trocar was removed from the left lower quadrant and a suture Passer used under direct laparoscopic vision to close the 12 mm trocar. The patient was returned to neutral position and the abdomen deflated and the remaining trocars removed. The fascial suture was closed and the skin closed with 4-0 Monocryl subcuticular sutures. The abdomen was then washed and dried, Mastisol and Steri-Strips applied followed by Band-Aids. Patient tolerated the procedure well and was sent extubated the recovery in stable condition. All sponge instrument counts were correct. The patient's was contacted by phone and apprised of the findings. His questions seemed to be satisfactorily answered.]
[2022-02-12] MEDS: Midazolam HCl/PF 2 MG/2 ML VIAL 1 MG IVPUSH (11:54)
--- NOTE | 2022-02-12 13:47 | PC.NURSE ---
at 1015 pt bp was 108/71 hr 77, rr 18 and spo2 was 98,
[2022-02-12] MEDS: Scopolamine 1.5 MG PATCH.TD.3 EAR-BEHIND (14:01)
--- NOTE | 2022-02-12 14:47 | P.CONAN_ITS ---
[facility] Active Problems Active Problems: All Active Problems (Updated 02/12/22 @ 13:25 by Elinor Soares RN) Left ankle injury (Acute) Pain of left calf (Acute) Urinary tract infection (Acute) COVID-19 (Acute) Rib lesion (Acute) Abdominal pain (Acute) Prolonged QT interval (Acute) Acute appendicitis (Acute) Hyperlipidemia (Acute) Annual physical exam (Acute) Bilateral hand numbness (Acute) History of bladder suspension procedure (Acute) History of thyroidectomy (Acute) Diarrhea (Acute) Hx of hysterectomy (Acute) Eating disorder (Acute) HTN (hypertension) (Acute) COPD (chronic obstructive pulmonary disease) (Acute) Anxiety (Acute) Left ankle sprain (Acute) Past Medical History Medical History Annual physical exam Anxiety Asthma Bilateral hand numbness COPD (chronic obstructive pulmonary disease) Diarrhea Eating disorder HTN (hypertension) Hyperlipidemia Left ankle sprain Functional capacity: independent ambulation Patient : No Family History Family History Brother Substance use disorder Brother Substance use disorder Mother Mental health disorder [place] (myocardial infarction), Onset Age: 64 Family history of problems with anesthesia: No Surgical History Surgical History History of bladder suspension procedure History of thyroidectomy Hx of hysterectomy History of Problems with Anesthesia: No Social History Social History 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:: , 3 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, 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 Housing: House Alcohol intake: never Patient Tobacco Use Status: Former Tobacco user Tobacco use type: Cigarette e-Cigarette/Vaping Use: Never Used Advance Directives Date on File: 02/12/22 Current occupational status: employed 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 Cognitive needs: No Hearing needs: No Vision needs: Yes Meds Allergies Allergy/AdvReac Type Severity Reaction Status Date / Time No Known Allergies Allergy Verified 12/12/21 14:55 Active Medications: Current Medications Fentanyl (Fentanyl Citrate/Pf 100 Mcg/2 Ml Vial) 25 mcg IVPUSH Q5M PRN; Protocol PRN Reason: Pain, Moderate (Pain Scale 4-6 Lactated Ringer's (Lr) 1,000 mls @ 100 mls/hr IVCONT .Q10H [facility] Last Admin: 02/12/22 11:07 Dose: 100 mls/hr Acetaminophen (Ofirmev) 1,000 mg in 100 mls @ 400 mls/hr IV ONCE ONE Stop: 02/12/22 14:47 Ondansetron HCl (Ondansetron Hcl 4 Mg/2 Ml Vial) 4 mg IVPUSH ONCE PRN PRN Reason: Nausea and Vomiting Pharmacy Consult (Consult Rx Perform Med Rec) 1 each MISCELLANE ONCE PRN PRN Reason: Consult order Home Medications Medication Instructions Recorded Confirmed Last Taken Type hydroxyzine HCl 25 mg tablet 25 mg PO TID PRN Anxiety 02/23/21 02/12/22 Unknown History trazodone 50 mg tablet 50 mg PO DAILY 02/23/21 02/12/22 Unknown History Exam Exam Date and Time: February 12, 2022 144 Height,Weight and Vital Signs: Height 5 ft 5 in Weight 56.699 kg Last Vital Signs Temp 98.4 F 02/12/22 13:27 Pulse 82 02/12/22 13:27 Resp 16 02/12/22 13:27 BP 103/64 02/12/22 13:27 Pulse Ox 98 02/12/22 13:27 O2 Del Method 02/12/22 13:27 Pertinent Lab Results Pertinent Lab Results: Laboratory Tests 02/12/22 02/12/22 02/12/22 06:25 07:09 07:09 WBC 9.2 RBC 4.74 Hgb 14.6 Hct 44.3 MCV 93.5 MCH 30.8 MCHC 33.0 RDW 12.3 Plt Count 294 MPV 9.1 L Immature Gran % (Auto) 0.3 Neut % (Auto) 89.2 H Lymph % (Auto) 6.7 L Storey % (Auto) 3.6 Eos % (Auto) 0.0 Baso % (Auto) 0.2 Lymph # (Auto) 0.6 L Storey # (Auto) 0.3 Eos # (Auto) 0.0 Baso # (Auto) 0.0 Abs Immat Gran (auto) 0.03 Absolute Neuts (auto) 8.2 Absolute Nucleated RBC 0.000 Nucleated RBC % (auto) 0.0 PT INR Sodium 138 Potassium 3.6 Chloride 98 Carbon Dioxide 22 Anion Gap 22 H BUN 22 H Creatinine 1.18 Estim Creat Clear Calc 49.9 Estimated GFR 48 Random Glucose 130 H Lactic Acid Calcium 9.8 Magnesium 1.9 Total Bilirubin 1.2 H Direct Bilirubin 0.5 AST 17 ALT 15 Alkaline Phosphatase 103 D Troponin I High Sens Total Protein 8.7 H Albumin 5.2 H Lipase 13 COVID-19 (MAR[facility]ITA) Negative COVID-19 Clin Com See Note 02/12/22 02/12/22 02/12/22 07:09 07:09 07:09 WBC RBC Hgb Hct MCV MCH MCHC RDW Plt Count MPV Immature Gran % (Auto) Neut % (Auto) Lymph % (Auto) Storey % (Auto) Eos % (Auto) Baso % (Auto) Lymph # (Auto) Storey # (Auto) Eos # (Auto) Baso # (Auto) Abs Immat Gran (auto) Absolute Neuts (auto) Absolute Nucleated RBC Nucleated RBC % (auto) PT 12.9 INR 1.1 Sodium Potassium Chloride Carbon Dioxide Anion Gap BUN Creatinine Estim Creat Clear Calc Estimated GFR Random Glucose Lactic Acid 1.9 Calcium Magnesium Total Bilirubin Direct Bilirubin AST ALT Alkaline Phosphatase Troponin I High Sens < 3.5 Total Protein Albumin Lipase COVID-19 ([facility]) COVID-19 Clin Com Airway Mallampati Class: II TM Dist: >3cm Neck ROM: Full Heart: RRR Lungs: CTA Assessment and Plan Final Anesthetic Review Family History of Problems with Anesthesia: No History of Problems with Anesthesia: No ASA Class: II Final Preanesthetic Review: Meds/Allgs Chart Reviewed, Consent Obtained/Reviewed and Anes Risks/Benef Reviewed Patient Risk: Intermediate Procedure Risk: Low Anesthetic Plan Anesthetic Plan: GA Disposition: Standard PACU
[2022-02-12] MEDS: Gabapentin 300 MG CAPSULE PO (20:35)
[2022-02-13] VITALS (7 sets, daily range): BP systolic 76–113; BP diastolic 48–61; PULSE 63–77; RESP 17–18; TEMP 36.6–36.9; O2SAT 96–98
[2022-02-13] MEDS: HYDROmorphone HCl 0.5 MG/0.5 ML SYRINGE IVPUSH ×8 (03:34→23:55)
[2022-02-13] MEDS: Lactated Ringers 1,000 ML 100 ML IVCONT (03:35)
[2022-02-13] MEDS: Piperacillin Sodium/Tazobactam 3.375 GM in 0.9 % Sodium Chloride 50 ML IV ×4 (03:38→22:00)
[2022-02-13] MEDS: Sertraline HCL 100 MG TABLET PO (08:37)
[2022-02-13] MEDS: Sertraline HCL 25 MG TABLET PO (08:37)
[2022-02-13] MEDS: traZODone HCL 50 MG TABLET PO (08:38)
[2022-02-13] MEDS: Aspirin Enteric Coated 81 MG TABLET.DR PO (08:38)
[2022-02-13] MEDS: lisinopriL 20 MG TABLET PO (08:38)
--- NOTE | 2022-02-13 11:23 | MHC.CM.PN ---
EMR REVIEWED CM MET WITH PATIENT AND SPOUSE REINIER. LIVES WITH SPOUSE IN SINGLE FAMILY HOME. HCP ON FILE. COVID VAX X 2 WITH MODERNA. PT IS SELF EMPLOYED. PCP IS DR. NORWOOD , PLAN NO SERVICES AT [place]. SPOUSE WILL TRANSPORT HOME
--- NOTE | 2022-02-13 13:05 | HO.POSTANES ---
Post Anesthesia Evaluation Post Anesthesia Evaluation Vital Signs: Vital Signs Temp Pulse Resp BP Pulse Ox O2 Del Method 02/13/22 07:29 98.4 F 63 17 99/57 L 97 Room Air 02/13/22 04:00 98 F 70 18 113/61 98 Room Air Anesthesia: General Endotracheal-GETA Mental Status: Awake Pain Control: Satisfactory Nausea/Vomiting: None Hydration: Adequate Anesthesia-Related Issues: No Anes. Related Issues
--- NOTE | 2022-02-13 13:58 | PM.PNGS ---
Subjective Subjective Date of Service: 02/13/22 Interval history: Patient feeling somewhat improved. She is having incisional pain which is relieved by meds. She is tolerating clear liquids without N/V. She has been OOB to the bathroom. Physical Exam Vital Signs: Vital Signs: Last Vital Signs Temp 98.4 F 02/13/22 07:29 Pulse 63 02/13/22 07:29 Resp 17 02/13/22 07:29 BP 99/57 L 02/13/22 07:29 Pulse Ox 97 02/13/22 07:29 O2 Del Method 02/13/22 07:29 O2 Flow Rate 2 02/12/22 16:45 BMI result Body Mass Index 20.7 Const: General: comfortable, no acute distress and alert Orientation/consciousness: patient oriented x3 Resp: Effort & Inspection: normal respiratory effort GI: Inspection: Yes distended (slightly) and Yes incision (dressings c/d/i) Palpation (GI): Soft to palpation, Tenderness to palpation present (GI) (incisional), no guarding and not rigid Skin: General skin exam: no rashes or lesions noted Neuro: General: patient oriented x3 and moves all extremities Extrem: General: Yes no clubbing, cyanosis or edema Objective Data Active Medications Acetaminophen (Acetaminophen 325 Mg Tablet) 650 mg PO Q6H PRN PRN Reason: Pain, Mild (Pain Scale 1-3) Albuterol Sulfate (Albuterol Sulfate 90 Mcg 8 Gm Inhaler) 2 puff INHALE RQ4H [facility] Last Admin: 02/13/22 08:11 Dose: Not Given Documented By: JAVAN Non-Admin Reason: Med Not Available Aspirin (Aspirin Enteric Coated 81 Mg Tablet.) 81 mg PO DAILY [facility] Last Admin: 02/13/22 08:38 Dose: 81 mg Documented By: ANEESH Cyanocobalamin (Cyanocobalamin (Vitamin B-12) 1,000 Mcg/Ml Vial) 1,000 mcg IM Q28D [facility] Fentanyl (Fentanyl Citrate/Pf 100 Mcg/2 Ml Vial) 25 mcg IVPUSH Q5M PRN; Protocol PRN Reason: Pain, Moderate (Pain Scale 4-6 Gabapentin (Gabapentin 300 Mg Capsule) 300 mg PO BEDTIME [facility] Last Admin: 02/12/22 20:35 Dose: 300 mg Documented By: ANNAMARIE Hydromorphone HCl (Hydromorphone Hcl 0.5 Mg/0.5 Ml Syringe) 0.5 mg IVPUSH Q2H PRN; Protocol PRN Reason: Pain, Moderate (Pain Scale 4-6 Last Admin: 02/13/22 11:15 Dose: 0.5 mg Documented By: ANEESH Hydroxyzine HCl (Hydroxyzine Hcl 25 Mg Tablet) 25 mg PO TID PRN PRN Reason: Anxiety Lactated Ringer's (Lr) 1,000 mls @ 100 mls/hr IVCONT .Q10H [facility] Last Admin: 02/13/22 06:41 Dose: Not Given Documented By: ANNAMARIE Non-Admin Reason: IV Running Piperacillin Sod/Tazobactam (Sod 3.375 gm/ Sodium Chloride) 50 mls @ 100 mls/hr IV Q6H [facility] Last Infusion: 02/13/22 10:08 Dose: 0 mls/hr Documented By: ANEESH Lisinopril (Lisinopril 20 Mg Tablet) 20 mg PO DAILY [facility]; Protocol Last Admin: 02/13/22 08:38 Dose: 20 mg Documented By: ANEESH Ondansetron HCl (Ondansetron Hcl 4 Mg/2 Ml Vial) 4 mg IVPUSH ONCE PRN PRN Reason: Nausea and Vomiting Ondansetron HCl (Ondansetron Hcl 4 Mg/2 Ml Vial) 4 mg IVPUSH Q8H PRN PRN Reason: Nausea and Vomiting Oxycodone HCl (Oxycodone Hcl Immed Release 5 Mg Tablet) 5 mg PO Q4H PRN PRN Reason: Pain, Moderate (Pain Scale 4-6 Pharmacy Consult (Consult Rx Perform Med Rec) 1 each MISCELLANE ONCE PRN PRN Reason: Consult order Sertraline HCl (Sertraline Hcl 25 Mg Tablet) 25 mg PO DAILY [facility] Last Admin: 02/13/22 08:37 Dose: 25 mg Documented By: ANEESH Sertraline HCl (Sertraline Hcl 100 Mg Tablet) 100 mg PO DAILY [facility] Last Admin: 02/13/22 08:37 Dose: 100 mg Documented By: ANEESH Trazodone HCl (Trazodone Hcl 50 Mg Tablet) 50 mg PO DAILY [facility] Last Admin: 02/13/22 08:38 Dose: 50 mg Documented By: ANEESH Labs CBC & Chem 7: 02/12/22 07:09 02/12/22 07:09 Microbiology Microbiology Results: Microbiology 02/12/22 Unknown Gram Stain - Final Peritoneal Fluid Routine Culture - Preliminary Gram negative uriah Anaerobic Culture - Preliminary Culture in progress. 02/12/22 07:11 Blood Culture - Preliminary Blood - Venous No growth after 24 hours. 02/12/22 07:09 Blood Culture - Preliminary Blood - Venous No growth after 24 hours. Procedures Date of Service Date of Service: 02/13/22 Progress Note: A&P Assessment and plan (1) Acute perforated appendicitis: Status: Acute (2) S/P laparoscopic appendectomy: Status: Acute Plan 51 year old female admitted for appendicitis now POD #1 s/p lap appy found to have perforated, gangrenous appendicitis. She is doing well post op with adequate pain control and a benign abd exam with appropriate post op tenderness. Dressings c/d/i. Continue clear liquids for now. Cont IV zosyn for perforated appendicitis. Await final peritoneal cx. PO analgesics added for pain management. Encouraged OOB/ambulation and IS use. Time Spent With Patient Time: Total time spent is greater than 50% in coordination of care (as documented) at patient's floor/unit and/or counseling patient: Quality Stroke Does the patient have a stroke diagnosis?: No VTE Prior VTE?: No VTE Risk Level:: Surgical - low VTE Device Contraindication: N/A - Device Ordered VTE Drug Contraindication: N/A - Med Ordered
--- NOTE | 2022-02-13 14:16 | PM.EVENT ---
Documented by User: Shabana Patiño PA-C 02/13/22 14:24 Event Note Date of Service: 02/13/22 Event Note: Notified by RN of patient's vitals BP 76/48 HR 77 and RR 18 prior to medicating patient. Patient asymptomatic- denies CP, dizziness, SOB. She had just ambulated to bathroom without difficulty. Patient assessed- A & O X3, well appearing. Will increase IVF to 125cc and bolus 30cc/kg. May be behind on fluid resuscitation given full day of vomiting prior to admission in combination with anesthetics. Will continue to monitor. Documented by User: Srinivasan Lloyd MD 02/13/22 14:35 Event Note Date of Service: 02/13/22 Event Note: Notified by RN of patient's vitals BP 76/48 HR 77 and RR 18 prior to medicating patient. Patient asymptomatic- denies CP, dizziness, SOB. She had just ambulated to bathroom without difficulty. Patient assessed- A & O X3, well appearing. Will increase IVF to 125cc and bolus 30cc/kg. May be behind on fluid resuscitation given full day of vomiting prior to admission in combination with anesthetics. Will continue to monitor. Agree with above plan. Trend labs.
[2022-02-13] MEDS: 0.9 % Sodium Chloride 1,700.97 ML 1700.97 ML IV (14:25)
[2022-02-13] MEDS: Acetaminophen 325 MG TABLET 650 MG PO (17:41)
[2022-02-13] MEDS: Gabapentin 300 MG CAPSULE PO (20:08)
[2022-02-13] MEDS: Docusate Sodium 100 MG CAPSULE 200 MG PO (20:08)
[2022-02-13] MEDS: Lactated Ringers 1,000 ML 125 ML IVCONT (22:27)
[2022-02-14] VITALS (8 sets, daily range): BP systolic 91–129; BP diastolic 56–67; PULSE 74–90; RESP 16–20; TEMP 36.9–37.7; O2SAT 93–99
--- NOTE | 2022-02-14 | ECG_ITS ---
Test Reason : chest pain Blood Pressure : / mmHG Vent. Rate : 089 BPM Atrial Rate : 089 BPM P-R Int : 164 ms QRS Dur : 080 ms QT Int : 354 ms P-R-T Axes : 028 034 021 degrees QTc Int : 430 ms Normal sinus rhythm Nonspecific T wave abnormality Abnormal ECG When compared with ECG of 12-FEB-2022 10:01, Nonspecific T wave abnormality has replaced inverted T waves in Anterior leads Referred By: Tavia Franco Electronically Signed By:PARUL WILLOUGHBY
[2022-02-14] MEDS: HYDROmorphone HCl 0.5 MG/0.5 ML SYRINGE IVPUSH (02:51)
--- NOTE | 2022-02-14 03:34 | PC.NURSE ---
first rounding at 19:30, I noticed that pt's bilateral hands were swollen, elevated both hands above the heart, continue monitoring. pt started complaining of chest tightness and abd pain at 00:15, applied O2 1L via NC at 96%, dilaudid 0.5mg IVPUSH given, pt fell asleep for a few hours. at 0300 pt complaining again of chest tightness, notified Dr. Matos, consult to hospitalist Dr. Frnaco, ordered EKG, labs ordered stat. Dr Matos was in to see the pt. will continue monitor.
--- NOTE | 2022-02-14 03:44 | PM.EVENT ---
Event Note Date of Service: 02/14/22 Event Note: called by nurse - patient had complained of sudden left sided chest tightness she appears comfortable but anxious not in respiratory distress VS steady - she had been hypotensive during the day, IVF rate had been increased earlier some mild edema of fingers noted Hospitalist consulted EKG done - normal sinus
[2022-02-14 04:11] LABS: MANUAL DIFF FLAG NO
[2022-02-14 04:12] LABS: Basophils Percent Auto 0.2 % (0-2); Eosinophils Absolute Auto 0.1 X10*3/uL (0.0-0.4); Eosinophils Percent Auto 0.6 % (0-4); Hematocrit 30.7 % (37.0-47.0); Hemoglobin 10.2 g/dl (12.0-16.0); Imm Gran Abs Auto 0.04 X10*3/uL (0.00-0.03); Imm Gran Pct Auto 0.4 % (0.0-0.4); Lymphocytes Absolute Auto 0.9 X10*3/uL (1.2-4.9); Mean Corpuscular HGB Conc 33.2 g/dl (31.0-35.0); Mean Corpuscular Hemoglobin 31.5 pg (27.0-33.0); Mean Corpuscular Volume 94.8 fL (80.0-98.0); Mean Platelet Volume 9.3 fL (9.4-12.3); Monocytes Absolute Auto 0.4 X10*3/uL (0.1-1.2); Monocytes Percent Auto 4.2 % (2-11); Neutrophils Absolute Auto 8.4 x10*3/uL (2.0-8.3); Neutrophils Percent Auto 85.6 % (45-73); Platelet Count 231 X10*3/uL (160-400); Red Blood Count 3.24 X10*6/uL (4.20-5.50); White Blood Count 9.8 X10*3/uL (4.8-10.8)
[2022-02-14] MEDS: Piperacillin Sodium/Tazobactam 3.375 GM in 0.9 % Sodium Chloride 50 ML IV ×4 (04:14→21:12)
[2022-02-14 04:37] LABS: Anion Gap 12 (12-20); Blood Urea Nitrogen 13 mg/dL (9-16); Calcium 7.8 mg/dL (8.4-10.2); Carbon Dioxide 24 mmol/L (22-29); Chloride 104 mmol/L (96-108); Creatinine Clr Calc Pharmacy 89.2; Estimated Glomerular Filt Rate > 60; Glucose Random 95 mg/dL (60-115); Potassium 3.6 mmol/L (3.3-5.1); Sodium 136 mmol/L (135-145); Troponin-I High Sensitivity 13.8 ng/L (<3.5-17.0)
[2022-02-14] MEDS: Lactated Ringers 1,000 ML 125 ML IVCONT ×2 (06:33→14:47)
[2022-02-14] MEDS: Morphine Sulfate 4 MG/ML CARTRIDGE IVPUSH (06:40)
--- NOTE | 2022-02-14 08:14 | PM.PNGS ---
Subjective Subjective Date of Service: 02/14/22 <Shabana Patiño PA-C - Last Filed: 02/14/22 08:29> 02/14/22 <Srinivasan Lloyd MD - Last Filed: 02/14/22 10:55> Interval history: Had chest pressure early this morning. Was seen by Dr. Matos and medicine service. EKG without acute changes. Given morphine and reported feeling subsided. Feels much better this morning and wants to go home but still continues with abdominal pain requiring dilaudid 0.5mg q2h. Pain mostly at left sided incision. States pain does not enable her to take deep breaths. Passing flatus. Tolerating clear liquids and would like solid food. Has only been OOB to bathroom. <MATILDE Freedman Last Filed: 02/14/22 08:29> Physical Exam Vital Signs: Vital Signs: Last Vital Signs Temp 98.4 F 02/14/22 04:00 Pulse 90 02/14/22 04:00 Resp 16 02/14/22 04:00 BP 100/62 02/14/22 04:00 Pulse Ox 94 02/14/22 04:00 O2 Del Method 02/14/22 04:00 O2 Flow Rate 1 02/14/22 04:00 BMI result Body Mass Index 20.7 <MATILDE Freedman Last Filed: 02/14/22 08:29> Const: General: comfortable, no acute distress and alert <Shabana Patiño PA-C - Last Filed: 02/14/22 08:29> Orientation/consciousness: patient oriented x3 <Shabana Patiño PA-C - Last Filed: 02/14/22 08:29> Resp: Effort & Inspection: normal respiratory effort <MATILDE Freedman Last Filed: 02/14/22 08:29> Auscultation: clear to auscultation bilaterally <MATILDE Freedman Last Filed: 02/14/22 08:29> Cardio: Rate: regular rate <MATILDE Freedman Last Filed: 02/14/22 08:29> Rhythm: regular rhythm <MATILDE Freedman Last Filed: 02/14/22 08:29> GI: Inspection: No distended and Yes incision (dressings c/d/i) <Shabana Patiño PA-C - Last Filed: 02/14/22 08:29> Palpation (GI): Soft to palpation, Tenderness to palpation present (GI) (incisional, most at left sided incision), no guarding and not rigid <Shabana Patiño PA-C - Last Filed: 02/14/22 08:29> Skin: General skin exam: no rashes or lesions noted <MATILDE Freedman Last Filed: 02/14/22 08:29> Neuro: General: patient oriented x3 <MATILDE Freedman Last Filed: 02/14/22 08:29> Extrem: General: Yes no clubbing, cyanosis or edema <MATILDE Freedman Last Filed: 02/14/22 08:29> Objective Data Active Medications Acetaminophen (Acetaminophen 325 Mg Tablet) 650 mg PO Q6H PRN PRN Reason: Pain, Mild (Pain Scale 1-3) Last Admin: 02/13/22 17:41 Dose: 650 mg Documented By: ANEESH Albuterol Sulfate (Albuterol Sulfate 90 Mcg 8 Gm Inhaler) 2 puff INHALE RQ4H [facility] Last Admin: 02/14/22 07:21 Dose: Not Given Documented By: MARIO Non-Admin Reason: resp Aspirin (Aspirin Enteric Coated 81 Mg Tablet.Dr) 81 mg PO DAILY [facility] Last Admin: 02/13/22 08:38 Dose: 81 mg Documented By: ANEESH Cyanocobalamin (Cyanocobalamin (Vitamin B-12) 1,000 Mcg/Ml Vial) 1,000 mcg IM Q28D [facility] Docusate Sodium (Docusate Sodium 100 Mg Capsule) 200 mg PO BID [facility] Last Admin: 02/13/22 20:08 Dose: 200 mg Documented By: ANNAMARIE Gabapentin (Gabapentin 300 Mg Capsule) 300 mg PO BEDTIME [facility] Last Admin: 02/13/22 20:08 Dose: 300 mg Documented By: ANNAMARIE Hydromorphone HCl (Hydromorphone Hcl 0.5 Mg/0.5 Ml Syringe) 0.5 mg IVPUSH Q2H PRN; Protocol PRN Reason: Pain, Moderate (Pain Scale 4-6 Last Admin: 02/14/22 02:51 Dose: 0.5 mg Documented By: ANNAMARIE Hydroxyzine HCl (Hydroxyzine Hcl 25 Mg Tablet) 25 mg PO TID PRN PRN Reason: Anxiety Lactated Ringer's (Lr) 1,000 mls @ 125 mls/hr IVCONT .Q8H [facility] Last Admin: 02/14/22 06:33 Dose: 125 mls/hr Documented By: ANNAMARIE Piperacillin Sod/Tazobactam (Sod 3.375 gm/ Sodium Chloride) 50 mls @ 100 mls/hr IV Q6H [facility] Last Infusion: 02/14/22 04:45 Dose: 0 mls/hr Documented By: ANNAMARIE Lisinopril (Lisinopril 20 Mg Tablet) 20 mg PO DAILY [facility]; Protocol Last Admin: 02/13/22 08:38 Dose: 20 mg Documented By: ANEESH Ondansetron HCl (Ondansetron Hcl 4 Mg/2 Ml Vial) 4 mg IVPUSH Q8H PRN PRN Reason: Nausea and Vomiting Oxycodone HCl (Oxycodone Hcl Immed Release 5 Mg Tablet) 5 mg PO Q4H PRN PRN Reason: Pain, Moderate (Pain Scale 4-6 Oxycodone HCl (Oxycodone Hcl Immed Release 5 Mg Tablet) 10 mg PO Q4H PRN PRN Reason: Pain, Severe (Pain Scale 7-10) Pharmacy Consult (Consult Rx Perform Med Rec) 1 each MISCELLANE ONCE PRN PRN Reason: Consult order Sertraline HCl (Sertraline Hcl 25 Mg Tablet) 25 mg PO DAILY [facility] Last Admin: 02/13/22 08:37 Dose: 25 mg Documented By: ANEESH Sertraline HCl (Sertraline Hcl 100 Mg Tablet) 100 mg PO DAILY [facility] Last Admin: 02/13/22 08:37 Dose: 100 mg Documented By: ANEESH Trazodone HCl (Trazodone Hcl 50 Mg Tablet) 50 mg PO DAILY [facility] Last Admin: 02/13/22 08:38 Dose: 50 mg Documented By: ANEESH <Shabana Patiño PA-C - Last Filed: 02/14/22 08:29> Labs CBC & Chem 7: : 02/14/22 03:43 02/14/22 03:43 <Shabana Patiño PA-C - Last Filed: 02/14/22 08:29> Labs: Laboratory Results - last 24 hr 02/14/22 02/14/22 02/14/22 03:43 03:43 03:43 MCV 94.8 MCH 31.5 MCHC 33.2 RDW 13.0 Plt Count 231 MPV 9.3 L Immature Gran % (Auto) 0.4 Neut % (Auto) 85.6 H Lymph % (Auto) 9.0 L Barber % (Auto) 4.2 Eos % (Auto) 0.6 Baso % (Auto) 0.2 Lymph # (Auto) 0.9 L Barber # (Auto) 0.4 Eos # (Auto) 0.1 Baso # (Auto) 0.0 Abs Immat Gran (auto) 0.04 H Absolute Neuts (auto) 8.4 H Absolute Nucleated RBC 0.000 Nucleated RBC % (auto) 0.0 Anion Gap 12 Estim Creat Clear Calc 89.2 Estimated GFR > 60 Random Glucose 95 Calcium 7.8 L D Troponin I High Sens 13.8 D <Shabana Patiño PA-C - Last Filed: 02/14/22 08:29> Microbiology Microbiology Results: Microbiology 02/12/22 Unknown Gram Stain - Final Peritoneal Fluid Routine Culture - Preliminary Gram negative uriah Anaerobic Culture - Preliminary Culture in progress. 02/12/22 07:11 Blood Culture - Preliminary Blood - Venous No growth after 24 hours. 02/12/22 07:09 Blood Culture - Preliminary Blood - Venous No growth after 24 hours. <Shabana Patiño PA-C - Last Filed: 02/14/22 08:29> Procedures Date of Service Date of Service: 02/14/22 <Shabana Patiño PA-C - Last Filed: 02/14/22 08:29> Progress Note: A&P Assessment and plan (1) S/P laparoscopic appendectomy: Status: Acute <MATILDE Freedman Last Filed: 02/14/22 08:29> (2) Acute perforated appendicitis: Status: Acute <MATILDE Freedman Last Filed: 02/14/22 08:29> (3) COPD (chronic obstructive pulmonary disease): Status: Acute <Shabana Patiño PA-C - Last Filed: 02/14/22 08:29> Assessment and Plan: 51 year old female admitted for appendicitis now POD #2 s/p lap appy found to have perforated, gangrenous appendicitis. Doing ok post operatively, recovering slowly. She was having chest pressure which is now resolved with pain medication. Overall feeling better but still requiring IV pain meds. VSS- BP much improved, O2 sats mid 90s on NC. Abd remains benign with clean dressings. AM labs reviewed- WBC normal, H/H drifted down but this is likely dilutional. Cont IV zosyn for perforated appendicitis. Await final peritoneal cx. Will advance to solid diet. Encouraged PO analgesics in preparation for discharge. She was strongly encouraged to ambulate the halls today and use of IS of at least 10x hourly. COPD- Her O2 sats are low to mid 90s this morning on NC. Denies SOB. Her lungs are clear. She has also not been receiving her albuterol inhaler. IS encouraged as above for likely atelectasis as she has not been taking deep breaths due to pain. <Shabana Patiño PA-C - Last Filed: 02/14/22 08:29> 51 year old female admitted for appendicitis now POD #2 s/p lap appy found to have perforated, gangrenous appendicitis. Doing ok post operatively, recovering slowly. She was having chest pressure which is now resolved with pain medication. Overall feeling better but still requiring IV pain meds. VSS- BP much improved, O2 sats mid 90s on NC. Abd remains benign with clean dressings. AM labs reviewed- WBC normal, H/H drifted down but this is likely dilutional. Cont IV zosyn for perforated appendicitis. Await final peritoneal cx. Will advance to solid diet. Encouraged PO analgesics in preparation for discharge. She was strongly encouraged to ambulate the halls today and use of IS of at least 10x hourly. COPD- Her O2 sats are low to mid 90s this morning on NC. Denies SOB. Her lungs are clear. She has also not been receiving her albuterol inhaler. IS encouraged as above for likely atelectasis as she has not been taking deep breaths due to pain. Patient seen and examined. Advanced diet. Optimize p.o. pain meds. Await cultures and sensitivities. Gram-negative rods noted as expected. <Srinivasan Lloyd MD - Last Filed: 02/14/22 10:55> Time Spent With Patient Time: Total time spent is greater than 50% in coordination of care (as documented) at patient's floor/unit and/or counseling patient: <Shabana Patiño PA-C - Last Filed: 02/14/22 08:29> Quality Stroke Does the patient have a stroke diagnosis?: No <Shabana Patiño PA-C - Last Filed: 02/14/22 08:29> VTE Prior VTE?: No <Shabana Patiño PA-C - Last Filed: 02/14/22 08:29> VTE Risk Level:: Surgical - low <Shabana Patiño PA-C - Last Filed: 02/14/22 08:29> VTE Device Contraindication: N/A - Device Ordered <Shabana Patiño PA-C - Last Filed: 02/14/22 08:29> VTE Drug Contraindication: N/A - Med Ordered <Shabana Patiño PA-C - Last Filed: 02/14/22 08:29>
[2022-02-14] MEDS: Acetaminophen 325 MG TABLET 650 MG PO (09:22)
[2022-02-14] MEDS: Sertraline HCL 100 MG TABLET PO (09:23)
[2022-02-14] MEDS: Docusate Sodium 100 MG CAPSULE 200 MG PO (09:23)
[2022-02-14] MEDS: Aspirin Enteric Coated 81 MG TABLET.DR PO (09:23)
[2022-02-14] MEDS: Sertraline HCL 25 MG TABLET PO (09:23)
[2022-02-14] MEDS: traZODone HCL 50 MG TABLET PO (09:23)
[2022-02-14] MEDS: Albuterol Sulfate 90 MCG 8 GM INHALER 2 PUFF INHALE ×3 (11:38→21:16)
[2022-02-14] MEDS: Ibuprofen 600 MG TABLET PO (14:05)
[2022-02-14] MEDS: HYDROcodone Bit/Acetam 5/325 TABLET 1 TAB PO ×2 (14:49→20:53)
[2022-02-14] MEDS: Gabapentin 300 MG CAPSULE PO (20:53)
[2022-02-15] VITALS: BP 129/71; PULSE 85; RESP 16; TEMP 36; O2SAT 93
[2022-02-15] MEDS: Lactated Ringers 1,000 ML 100 ML IVCONT (01:39)
[2022-02-15] MEDS: HYDROcodone Bit/Acetam 5/325 TABLET 1 TAB PO ×2 (03:22→07:37)
[2022-02-15 04:00] VITALS: BP 133/71; PULSE 85; RESP 16; TEMP 36.9; O2SAT 92
[2022-02-15] MEDS: Piperacillin Sodium/Tazobactam 3.375 GM in 0.9 % Sodium Chloride 50 ML IV ×2 (04:46→10:40)
[2022-02-15 06:47] LABS: Anion Gap 14 (12-20); Blood Urea Nitrogen 4 mg/dL (9-16); Carbon Dioxide 26 mmol/L (22-29); Chloride 105 mmol/L (96-108); Estimated Glomerular Filt Rate > 60; Glucose Random 104 mg/dL (60-115); Potassium 3.2 mmol/L (3.3-5.1); Sodium 142 mmol/L (135-145)
[2022-02-15 07:02] VITALS: BP 131/76; PULSE 76; RESP 18; TEMP 36; O2SAT 96
--- NOTE | 2022-02-15 07:04 | PM.PNGS ---
Subjective Subjective Date of Service: 02/15/22 Patient reports: no new complaints, feels better, pain is less and tolerating a regular diet Interval history: The patient reports interval improvement since yesterday. She has had a loose bowel movement and is tolerating her diet. She otherwise denies chest pain, difficulty breathing or shortness of breath. Her pain is adequately controlled with Tylenol and oxycodone. Physical Exam Vital Signs: Vital Signs: Last Vital Signs Temp 96.8 F 02/15/22 07:02 Pulse 76 02/15/22 07:02 Resp 18 02/15/22 07:02 BP 131/76 02/15/22 07:02 Pulse Ox 96 02/15/22 07:02 O2 Del Method 02/15/22 07:02 O2 Flow Rate 1.0 02/14/22 12:00 BMI result Body Mass Index 20.7 Dressings are clean, dry and intact Abdomen is soft with appropriate incisional tenderness Patient is nontoxic and is in good spirits Objective Data Active Medications Acetaminophen (Acetaminophen 325 Mg Tablet) 650 mg PO Q6H PRN PRN Reason: Pain, Mild (Pain Scale 1-3) Last Admin: 02/14/22 09:22 Dose: 650 mg Documented By: MARIO Hydrocodone Bitart/Acetaminophen (Hydrocodone Bit/Acetam 5/325 Tablet) 1 tab PO Q4H PRN PRN Reason: Pain, Moderate (Pain Scale 4-6 Last Admin: 02/15/22 03:22 Dose: 1 tab Documented By: LANEY Albuterol Sulfate (Albuterol Sulfate 90 Mcg 8 Gm Inhaler) 2 puff INHALE RQ4H [facility] Last Admin: 02/15/22 05:32 Dose: Not Given Documented By: LANEY Non-Admin Reason: Patient Asleep Aspirin (Aspirin Enteric Coated 81 Mg Tablet.) 81 mg PO DAILY [facility] Last Admin: 02/14/22 09:23 Dose: 81 mg Documented By: MARIO Cyanocobalamin (Cyanocobalamin (Vitamin B-12) 1,000 Mcg/Ml Vial) 1,000 mcg IM Q28D [facility] Docusate Sodium (Docusate Sodium 100 Mg Capsule) 200 mg PO BID [facility] Last Admin: 02/14/22 20:54 Dose: Not Given Documented By: LANEY Non-Admin Reason: Patient Refused Gabapentin (Gabapentin 300 Mg Capsule) 300 mg PO BEDTIME [facility] Last Admin: 02/14/22 20:53 Dose: 300 mg Documented By: LANEY Hydromorphone HCl (Hydromorphone Hcl 0.5 Mg/0.5 Ml Syringe) 0.5 mg IVPUSH Q2H PRN; Protocol PRN Reason: Pain, Moderate (Pain Scale 4-6 Last Admin: 02/14/22 02:51 Dose: 0.5 mg Documented By: ANNAMARIE Hydroxyzine HCl (Hydroxyzine Hcl 25 Mg Tablet) 25 mg PO TID PRN PRN Reason: Anxiety Lactated Ringer's (Lr) 1,000 mls @ 100 mls/hr IVCONT .Q10H [facility] Last Admin: 02/15/22 01:39 Dose: 100 mls/hr Documented By: LANEY Piperacillin Sod/Tazobactam (Sod 3.375 gm/ Sodium Chloride) 50 mls @ 100 mls/hr IV Q6H [facility] Last Infusion: 02/15/22 05:19 Dose: 0 mls/hr Documented By: LANEY Ibuprofen (Ibuprofen 600 Mg Tablet) 600 mg PO Q6H PRN PRN Reason: Pain, Mild (Pain Scale 1-3) Last Admin: 02/14/22 14:05 Dose: 600 mg Documented By: MARIO Lisinopril (Lisinopril 20 Mg Tablet) 20 mg PO DAILY [facility]; Protocol Last Admin: 02/14/22 09:28 Dose: Not Given Documented By: MARIO Non-Admin Reason: Decreased Blood Pressure Ondansetron HCl (Ondansetron Hcl 4 Mg/2 Ml Vial) 4 mg IVPUSH Q8H PRN PRN Reason: Nausea and Vomiting Pharmacy Consult (Consult Rx Perform Med Rec) 1 each MISCELLANE ONCE PRN PRN Reason: Consult order Sertraline HCl (Sertraline Hcl 25 Mg Tablet) 25 mg PO DAILY [facility] Last Admin: 02/14/22 09:23 Dose: 25 mg Documented By: MARIO Sertraline HCl (Sertraline Hcl 100 Mg Tablet) 100 mg PO DAILY [facility] Last Admin: 02/14/22 09:23 Dose: 100 mg Documented By: MARIO Trazodone HCl (Trazodone Hcl 50 Mg Tablet) 50 mg PO DAILY [facility] Last Admin: 02/14/22 09:23 Dose: 50 mg Documented By: MARIO Labs CBC & Chem 7: 02/14/22 03:43 02/15/22 06:22 Labs: Laboratory Results - last 24 hr 02/15/22 06:22 Anion Gap 14 Estim Creat Clear Calc 92.0 Estimated GFR > 60 Random Glucose 104 Calcium 8.0 L Microbiology Microbiology Results: Microbiology 02/12/22 Unknown Gram Stain - Final Peritoneal Fluid Routine Culture - Preliminary Gram negative uriah Anaerobic Culture - Preliminary Culture in progress. 02/12/22 07:11 Blood Culture - Preliminary Blood - Venous No growth after 48 hours. 02/12/22 07:09 Blood Culture - Preliminary Blood - Venous No growth after 48 hours. Procedures Date of Service Date of Service: 02/15/22 Progress Note: A&P Assessment and plan (1) S/P laparoscopic appendectomy: Status: Acute (2) Acute perforated appendicitis: Status: Acute Plan Will await culture and sensitivities, however with a Gram-negative uriah being found in her abdomen, she may be discharged later today on Augmentin, 875 mg b.i.d. for a week. Activity restrictions were reviewed and questions answered. Continue present care. Time Spent With Patient Time: Total time spent is greater than 50% in coordination of care (as documented) at patient's floor/unit and/or counseling patient: Quality Stroke Does the patient have a stroke diagnosis?: No VTE Prior VTE?: No VTE Risk Level:: Surgical - low VTE Device Contraindication: N/A - Device Ordered VTE Drug Contraindication: N/A - Med Ordered
[2022-02-15] MEDS: traZODone HCL 50 MG TABLET PO (07:36)
[2022-02-15] MEDS: Aspirin Enteric Coated 81 MG TABLET.DR PO (07:36)
[2022-02-15] MEDS: Sertraline HCL 100 MG TABLET PO (07:37)
[2022-02-15] MEDS: Sertraline HCL 25 MG TABLET PO (07:37)
[2022-02-15] MEDS: lisinopriL 20 MG TABLET PO (07:37)
[2022-02-15 10:55] VITALS: BP 115/65; PULSE 77; RESP 18; TEMP 36; O2SAT 95
--- NOTE | 2022-02-15 12:38 | P.DS_ITS ---
DS: Providers Provider Date of Service: 02/15/22 Date of admission: 02/12/22 16:00 Primary care physician: No Brambila MD Consults: 02/12/22 09:22 Consult to General Surgery Stat Consulting Provider: Srinivasan Lloyd Reason for consultation: acute appendicitis Has provider been notified: Yes DS: Diagnosis Discharge Diagnosis (1) S/P laparoscopic appendectomy: Status: Acute (2) Acute perforated appendicitis: Status: Acute DS: Summary Hospital Course Hospital Course: See H&P an operative report for full details. Briefly, this 51-year-old woman who is status post hysterectomy presented with abdominal pain and dehydration. CT confirmed appendicitis, she was volume resuscitated and taken to surgery where perforated appendicitis was found contained by her densely adherent omentum into her pelvis. Cultures were obtained and currently pending, but the patient is clinically improved on Zosyn during her hospitalization and has remained afebrile with a normal white blood cell count and improved abdominal exam. She is tolerating a regular diet on the day of discharge in moving her bowels. Overall condition at time of discharge is improved. Time Spent with Patient Time attestation: Total time spent providing and/or coordinating discharge services: Discharge coordination time: Less than 30 minutes Quality: Safe Use of Opioids Does Pt have an Active Cancer Diagnosis on the Problem List?: No Quality: Stroke Does the patient have a stroke diagnosis?: No Physical Exam Vital Signs: Vital Signs: Last Vital Signs Temp 96.8 F 02/15/22 10:55 Pulse 77 02/15/22 10:55 Resp 18 02/15/22 10:55 BP 115/65 02/15/22 10:55 Pulse Ox 95 02/15/22 10:55 O2 Del Method 02/15/22 10:55 O2 Flow Rate 1.0 02/14/22 12:00 BMI result Body Mass Index 20.7 DS: Data Data Completed and Pending Completed studies during hospitalization [Text1]: Pending at discharge 02/12/22 14:53 Surgical [PTH] Routine Labs on day of discharge: Laboratory Results - last 24 hr 02/15/22 06:22 Sodium 142 Potassium 3.2 L Chloride 105 Carbon Dioxide 26 Anion Gap 14 BUN 4 L D Creatinine 0.64 Estim Creat Clear Calc 92.0 Estimated GFR > 60 Random Glucose 104 Calcium 8.0 L Preliminary micro results at discharge 02/12/22 Unknown Anaerobic Culture - Preliminary Peritoneal Fluid Culture in progress. 02/12/22 07:11 Blood Culture - Preliminary Blood - Venous No growth after 48 hours. 02/12/22 07:09 Blood Culture - Preliminary Blood - Venous No growth after 48 hours. Discharge Plan Discharge Anticipated Discharge Date/Time: 02/15/22 08:53 Patient Disposition: Home, Self-Care Discharge Diagnosis: s/p laparoscopic appendectomy Referrals: No Brambila MD [Primary Care Provider] - 1 Week Srinivasan Lloyd MD [Physician] - 1 Week Discharge Medications: New amoxicillin-pot clavulanate 875-125 mg Tablet 875 mg PO Q12H 7 Days Qty: 13 0RF hydrocodone-acetaminophen 5-325 mg tablet 1 tab PO Q4-6H PRN (Reason: pain) Qty: 10 0RF Rx Instructions: Partial Fill upon patient request. Continued rosuvastatin [Crestor] 20 mg tablet 20 mg PO DAILY Qty: 90 1RF aspirin [Adult Low Dose Aspirin] 81 mg tablet,delayed release (DR/EC) 81 mg PO DAILY Qty: 90 3RF sertraline 25 mg tablet 25 mg PO DAILY Qty: 90 1RF Rx Instructions: Takes WITH sertraline 100mg daily sertraline 100 mg tablet 100 mg PO DAILY Qty: 90 1RF lisinopril 20 mg tablet 20 mg PO DAILY Qty: 90 3RF albuterol sulfate 90 mcg/actuation HFA aerosol inhaler 2 puff inhalation Q4H Qty: 8.5 5RF cyanocobalamin (vitamin B-12) 1,000 mcg/mL solution 1,000 mcg IM Q4W Qty: 10 3RF gabapentin 300 mg capsule 300 mg PO BEDTIME Qty: 90 3RF (DME) BD Insulin Syringe (half unit) 0.3 mL 31 gauge x 5/16 syringe See Rx Instructions .Route Qty: 100 1RF Rx Instructions: 1 A WEEK hydroxyzine HCl 25 mg tablet 25 mg PO TID PRN (Reason: Anxiety) trazodone 50 mg tablet 50 mg PO DAILY Discharge Orders: Discharge Order (Routine); Ordered 02/15/22 Ordered By: Srinivasan Lloyd Diet: Regular diet Activity on Discharge: No heavy lifting Activity Restrictions/Additional Instructions: You had a laparoscopic appendectomy performed by Dr. Lloyd. It is normal to feel some minor abdominal discomfort due to the gas from the operation, however if you develop severe pain in your abdomen or chest, fevers over 100F, vomiting and are unable to keep liquids down, you should contact Dr. Lloyd or report to the nearest emergency department. If your incisions become red, swollen and tender, draining pus or have problems, please contact Dr. Lloyd report to the nearest emergency department. If you have bandages on your incisions, leave them in place for 48 hours, then remove them. You can shower but not soak in a tub after removing the bandages. If there are paper tapes known as butterflies/Steri-Strips, leave them fall off on their own in 1-2 weeks. You do not need to put another bandage on your incisions and lesser clothing rubs or irritates your incisions. You can shower after you removed your bandages in 48 hours, but do not soak in a tub, go in a pool, or go swimming in a lui pond or ocean. Please let the paper tapes to dry after getting them wet. You do not need to replace a bandage on lesser clothing irritates the incision. You may find that pants with an elastic waist or suspenders are more comfortable than pants requiring a belt until your incisions completely heal. Because of the operation, you should not lift more than 20 lb for the next 4 weeks. Any strenuous activity such as lifting more than 20 lb, digging, yoga, any athletic activity, like running, soccer, or other strenuous activity, lifting heavy bags/groceries, swimming, martial arts, or other strenuous athletic activities can cause hernias. If you have any questions regarding a specific activity, please ask Dr. Lloyd. Avoiding strenuous activities will minimize the risk of incisional hernias. After a week, at your follow-up visit, Dr. Lloyd will discuss returning to work on light duty with you. Since you can perform light duty, you are not disable, but your employer may not allow you to return until you have no restrictions; it is up to you to discuss this issue, as we cannot disclose personal information. Please bring any paperwork to that follow-up appointment from your employer. Please note that you are not disabled and need to discuss your work r estrictions for medical reasons with your employer. If you were prescribed an antibiotic, continue taking the medication as prescribed. The anesthesia from the operation and pain medicine will cause constipation. You can purchase [id number] stool softener known as Colace/docusate, 100 mg and take 2 tablets in the morning with breakfast and 2 tablets in the evening after dinner to minimize this problem. Even if you are not taking narcotics, the anesthesia can cause constipation. You can take [id number] Tylenol/acetaminophen with jqhi-tea-fjeuzxc naproxen or ibuprofen to help with pain. Ice packs are also allowed to minimize pain and swelling. You should eat a high-protein, high-fiber, low-fat diet to optimize healing. Please resume any preoperative medications unless otherwise directed by Dr. Lloyd. Please contact your primary care provider for a follow-up appointment in 2 weeks. Care Plan Goals: Return to baseline health and gradual return to activity following recovery period. Health Concerns: Perforated appendicitis HTN COPD Plan of Treatment: s/p lap appy PO Augmentin f/u in office Assessment: Doing well post op.
--- NOTE | 2022-02-15 13:40 | MHC.CM.PN ---
HOME - SELF CARE RN AWARE OF PLAN. PATIENT HAS TRANSPORT HOME
== END 2022-02-15 15:15 | disposition home or self-care (01) | DRG 225 ==
LOC: HO.ED 09:56 → HO.SSS 10:15 → HO.S3 17:15
PROVIDERS: Internal Medicine; Admitting Provider Surgery; Emergency Provider Emergency Medicine; PCP Internal Medicine; Visit Provider Surgery
PROC: 0DTJ4ZZ Resection of Appendix, Percutaneous Endoscopic Approach (ICD-10-PCS; CPT 44970; principal; 2022-02-12 14:00)
DX: K35.32 Acute appendicitis with perforation, localized peritonitis, and gangrene, without abscess (principal); J44.9 Chronic obstructive pulmonary disease, unspecified; E78.5 Hyperlipidemia, unspecified; E86.0 Dehydration; R94.31 Abnormal electrocardiogram [ECG] [EKG]; F41.9 Anxiety disorder, unspecified; Z79.82 Long term (current) use of aspirin; Z79.899 Other long term (current) drug therapy
CPT/HCPCS: 36415; 74177; 80048; 80076; 83605; 83690; 83735; 84484; 85025; 85610; 87040; 87070; 87073; 87076; 87077; 87186; 87205; 87635; 88304; 93005; 99285; J0131; J0690; J1100; J1170; J1885; J2250; J2270; J2405; J2543; J2795; J3010; J3475; Q9967

== ENCOUNTER 2022-02-27 15:09 | Outpatient (REF) | payer BC, SELFPAY ==
[2022-02-27 15:29] LABS: MANUAL DIFF FLAG NO
[2022-02-27 17:00] LABS: Basophils Percent Auto 0.2 % (0-2); Eosinophils Percent Auto 0.4 % (0-4); Hematocrit 33.3 % (37.0-47.0); Hemoglobin 10.6 g/dl (12.0-16.0); Imm Gran Abs Auto 0.06 X10*3/uL (0.00-0.03); Imm Gran Pct Auto 0.6 % (0.0-0.4); Lymphocytes Absolute Auto 1.9 X10*3/uL (1.2-4.9); Mean Corpuscular HGB Conc 31.8 g/dl (31.0-35.0); Mean Corpuscular Hemoglobin 30.2 pg (27.0-33.0); Mean Corpuscular Volume 94.9 fL (80.0-98.0); Mean Platelet Volume 8.8 fL (9.4-12.3); Monocytes Absolute Auto 0.8 X10*3/uL (0.1-1.2); Monocytes Percent Auto 7.6 % (2-11); Neutrophils Absolute Auto 7.2 x10*3/uL (2.0-8.3); Neutrophils Percent Auto 72.2 % (45-73); Platelet Count 675 X10*3/uL (160-400); Red Blood Count 3.51 X10*6/uL (4.20-5.50); Red Cell Distribution Width 12.4 % (11.0-16.0); White Blood Count 9.9 X10*3/uL (4.8-10.8)
[2022-02-27 17:18] LABS: Alanine Aminotransferase 56 U/L (0-31); Albumin Level 4.3 g/dL (3.5-5.0); Alkaline Phosphatase 105 U/L (39-117); Anion Gap 19 (12-20); Aspartate Amino Transferase 51 U/L (5-31); Bilirubin Total 0.3 mg/dL (0.0-1.0); Blood Urea Nitrogen 15 mg/dL (9-16); Calcium 9.2 mg/dL (8.4-10.2); Carbon Dioxide 25 mmol/L (22-29); Chloride 99 mmol/L (96-108); Estimated Glomerular Filt Rate > 60; Glucose Random 94 mg/dL (60-115); Potassium 4.4 mmol/L (3.3-5.1); Sodium 139 mmol/L (135-145); Total Protein 7.9 g/dL (6.5-8.0)
== END 2022-02-27 15:10 | disposition home or self-care (01) ==
LOC: HO.LAB 15:09
PROVIDERS: Visit Provider Surgery
DX: R10.31 Right lower quadrant pain (principal); K35.32 Acute appendicitis with perforation, localized peritonitis, and gangrene, without abscess; Z90.49 Acquired absence of other specified parts of digestive tract
CPT/HCPCS: 36415; 80053; 85025

== ENCOUNTER 2022-02-28 09:10 | Outpatient (REF) | payer BC, SELFPAY ==
--- NOTE | ~2022-02-28 | CT_ITS ---
EXAMINATION: CT ABDOMEN AND PELVIS WITH CONTRAST CLINICAL INFORMATION: Status post appendectomy. Persistent pain lower abdomen. COMPARISON: CT abdomen and pelvis with contrast 02/12/2022. TECHNIQUE: Multidetector volumetric images were obtained from the superior aspect of the liver through the pubic symphysis following administration 85 mL of Omnipaque 350 intravenous contrast. Sagittal and coronal reformatted images were obtained on the technologist's workstation. Oral contrast: Yes This CT examination was performed using dose optimization techniques as appropriate, variously including the following: *Automated exposure control *Adjustment of mA and/or kV according to patient size (this includes techniques or standardized protocols for targeted exams where dose is matched to indication/reason for exam; i.e. extremities or head) *Use of iterative reconstruction technique DLP: 273 mGy-cm FINDINGS: LUNG BASES: The visualized lung bases are unremarkable. LIVER, GALLBLADDER, AND BILIARY TREE: Normal in size and smooth in contour. No intrahepatic ductal dilatation. There are a few scattered small hepatic cysts as previously described. The gallbladder is unremarkable with no evidence of radiopaque gallstones, gallbladder wall thickening, or obvious pericholecystic inflammatory changes. PANCREAS: Unremarkable. SPLEEN: Unremarkable. ADRENAL GLANDS: Unremarkable. KIDNEYS AND URETERS: Kidneys are normal in size and enhance symmetrically. No hydronephrosis, hydroureter, calculi, or perinephric stranding. Small incidental cysts lower pole left kidney again seen. No additional imaging follow-up recommendation. BLADDER: Unremarkable. GASTROINTESTINAL TRACT: Status post appendectomy with clips or suture at base cecum. There is some mild stranding in the adjacent mesentery and mild thickening distal ileum. In the anterior right pelvis just posterior to the distal ileum is a new fluid collection measuring approximately 3.2 x 5.7 x 5.3 cm. Tiny adjacent satellite fluid collection 1 cm size. No gas bubbles. No bowel obstruction. No pneumatosis or free air. No extravasation of contrast. No ascites. ABDOMINAL WALL: Tiny fat-containing umbilical hernia, stable. LYMPH NODES: No lymphadenopathy. VASCULAR: Unremarkable. PELVIC VISCERA: Unremarkable. OSSEOUS STRUCTURES: Unremarkable. Results called and discussed with Dr. Lloyd [address]/CT abdomen pelvis w IV con IMPRESSION: 1. New fluid collection anterior right pelvis approximately 3.5 x 5.7 x 3.2 cm. Tiny adjacent satellite collection 1 cm size. 2. No bowel obstruction, pneumatosis, or free air.
[2022-02-28] MEDS: iohexoL 350 MG/ML 100 ML INFUS..BTL IV (11:40)
[2022-02-28] MEDS: Barium Sulfate Oral (Mocha) 450 ML ORAL.SUSP 900 ML PO (11:41)
== END 2022-02-28 09:11 | disposition home or self-care (01) ==
LOC: HO.CT 09:10
PROVIDERS: Visit Provider Surgery
DX: K57.92 Diverticulitis of intestine, part unspecified, without perforation or abscess without bleeding (principal); K35.32 Acute appendicitis with perforation, localized peritonitis, and gangrene, without abscess; R10.31 Right lower quadrant pain; Z90.49 Acquired absence of other specified parts of digestive tract
CPT/HCPCS: 74177; Q9967

== ENCOUNTER 2022-02-28 11:59 | Inpatient (IN) | payer BC, SELFPAY ==
--- NOTE | ~2022-02-28 | CT_ITS ---
PROCEDURE: CT GUIDED ABSCESS DRAINAGE CLINICAL INFORMATION: Pelvic abscess. COMPARISON: None TECHNIQUE: Following screening CT guided pelvic abscess drainage procedure, benefits and risk, a written consent was obtained. Patient was placed supine on CT table and preliminary CT imaging was obtained. Lead markers were then placed along the right lower quadrant and repeat CT imaging was obtained. An optimal lead marker was selected and marked on the skin. The marked site was cleaned in usual sterile manner with 2% chlorhexidine solution and draped. Copious amounts of 1% lidocaine was injected at puncture site. A 5 Yoruba long Yueh catheter was advanced through a skin incision into the right lower quadrant abscess under continuous CT fluoroscopy guidance. After removing the stylet aspirating pus, a 0.035 J-wire was advanced and Yueh catheter was removed. Over the guidewire a 10.2 Yoruba APD catheter was advanced and placed within the abscess. The stiffener and the guidewire was removed and a pigtail was formed by pulling the thread. The catheter was anchored to the skin with 3-0 nonabsorbable sutures. The catheter was then connected to a suction ball via connecting cannula. Sterile dressing applied postprocedure. Patient tolerated procedure extremely well. Conscious sedation was given to the patient during the exam and patient monitored by IR nursing and IR radiologist for [address] examination was performed using dose optimization techniques as appropriate, variously including the following: *Automated exposure control *Adjustment of mA and/or kV according to patient size (this includes techniques or standardized protocols for targeted exams where dose is matched to indication/reason for exam; i.e. extremities or head) *Use of iterative reconstruction technique DLP: 302 mGy-cm FINDINGS: On preliminary CT imaging there is a [id number] size abscess right lower quadrant with evidence of previous appendectomy. There is moderate kaylen cecum right lower quadrant fat stranding from inflammation. A 10.2 Yoruba APD catheter was left in the right lower quadrant abscess. Pus collected in a syringe was sent for aerobic and anaerobic cultures and Gram stain. CT/CT guided drainage IMPRESSION: Successful CT fluoroscopy-guided right lower quadrant appendiceal abscess was drained by placement of a 10.2 Yoruba APD catheter.
--- NOTE | 2022-02-28 12:07 | ED.ABDPAIN ---
HPI - Abdominal Pain General Chief Complaint: General Medical Stated Complaint: Abscess R Side S/P Appendectomy Time Seen by Provider: 02/28/22 12:05 Source: patient and old records reviewed Mode of arrival: ambulatory Limitations: no limitations History of Present Illness HPI narrative: 51 yo female with hx of HLD, diarrhea, hysterectomy, HTN, COPD s/p laparascopic appendectomy 02/12 that was perforated here with c/o intraabdominal abscess - sent to ED for admission and IR drainage. She notes pain since procedure seen in clinic yesterday had outpatient CT scan procedure today. MD elicited complaint: abdominal pain Pertinent past history: other (lap appendectomy 02/12) Onset (ago): week(s) (1+) Pain Consistency: constant Location: diffuse and RLQ Severity: severe Quality: stabbing Radiation: none Migration to: no migration Exacerbating factors: movement Relieving factors: nothing Context: recent antibiotic use and recent surgery/procedure Associated symptoms: nausea, vomiting and chills Related Data Home Medications Medication Instructions Recorded Confirmed hydroxyzine HCl 25 mg tablet 25 mg PO DAILY 02/23/21 02/28/22 trazodone 50 mg tablet 50 mg PO DAILY 02/23/21 02/28/22 Previous Rx's Medication Instructions Recorded albuterol sulfate 90 mcg/actuation 2 puff inhalation Q4H #8.5 grams 09/21/21 aerosol inhaler cyanocobalamin (vitamin B-12) 1,000 mcg IM Q4W #10 mL 09/21/21 1,000 mcg/mL injection solution gabapentin 300 mg capsule 300 mg PO BEDTIME #90 caps 09/21/21 insulin syr/ndl U100 half anthony 0.3 #100 ea 09/21/21 mL 31 gauge x 5/16 (BD Insulin Syringe Ultra-Fine (half unit)) lisinopril 20 mg tablet 20 mg PO DAILY #90 tabs 09/21/21 rosuvastatin 20 mg tablet (Crestor) 20 mg PO DAILY #90 tabs 09/28/21 aspirin 81 mg tablet,delayed 81 mg PO DAILY #90 tabs 10/01/21 release (Adult Low Dose Aspirin) sertraline 25 mg tablet 25 mg PO DAILY #90 tabs 01/17/22 sertraline 100 mg tablet 100 mg PO DAILY #90 tabs 01/23/22 Allergies Allergy/AdvReac Type Severity Reaction Status Date / Time No Known Allergies Allergy Verified 02/27/22 14:58 Review of Systems Review of Systems Constitutional : No Weight loss, No Fever, pos Chills ENT/Mouth : No sore throat, No Rhinorrhea Eyes: No Swelling, No Redness Cardiovascular : No Chest Pain, No SOB, NoEdema Respiratory : No Cough, No Sputum, No Wheezing Gastrointestinal : Positive Nausea, Positive Vomiting, no Diarrhea, positive abdominal Pain, No Hematochezia, No Melena Genitourinary : No Dysuria, No Urinary Frequency, No Hematuria, No Urgency Musculoskeletal : No joint pain, No Myalgias, No Joint Swelling Skin : No Skin Lesions, No rash Neuro : No Weakness, No Numbness, No Dizziness, No Headache Psych : No Anxiety/Panic, No Depression Heme/Lymph: No Bruising, No Lymphadenopathy Endocrine : No Polyuria, No Polydipsia All other systems reviewed and are negative. [facility] Past Medical History Attestation statement: The following information was validated with the patient. 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 Housing: House Do you presently have visiting nurse or other home services: No Alcohol intake: never Patient Tobacco Use Status: Former Tobacco user Tobacco use type: Cigarette e-Cigarette/Vaping Use: Never Used Advance Directives: Yes Advance Directives on File: Yes Advance Directives Date on File: 02/12/22 service: No Current occupational status: employed 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 Oriented X3. anxious crying in pain mild acute distress. Eyes: Pupils equal, round and reactive to light. ENT: Pharynx normal. Neck: Normal inspection. Neck supple. CVS: Normal heart rate and rhythm. Pulses normal. Respiratory: No respiratory distress. Breath sounds normal. Abdomen: Soft and mild distention, reports moderate ttp throughout, incisions are c/d/i Skin: Skin warm and dry. Normal skin color. Normal skin turgor. Extremities: No lower extremity edema. No calf ttp Neuro: Oriented X 3. No motor deficit. No sensory deficit. MDM - Abdominal Pain MDM Narrative Medical decision making narrative: 51 yo female with hx of HLD, diarrhea, hysterectomy, HTN, COPD s/p laparascopic appendectomy 02/12 that was perforated - was sent home on antibiotics, completed course has had pain since DC went to surgery office yesterday CT scan ordered which showed new fluid collection in anterior right pelvis 3.5 x 5.7 x 3.2. Sent to ED for admission and IR procedure. Will need labs, EKG given prior prolonged qtc, IV antibiotics. Surgery admit order put in on arrival. Lab Data Result diagrams: 02/28/22 12:24 02/28/22 12:24 Labs: Lab Results 02/28/22 02/28/22 02/28/22 Range/Units 12:24 12:24 12:24 WBC 9.2 (4.8-10.8) X10*3/uL RBC 3.81 L (4.20-5.50) X10*6/uL Hgb 11.7 L (12.0-16.0) g/dl Hct 35.9 L (37.0-47.0) % MCV 94.2 (80.0-98.0) fL MCH 30.7 (27.0-33.0) pg MCHC 32.6 (31.0-35.0) g/dl RDW 12.2 (11.0-16.0) % Plt Count 716 H (160-400) X10*3/uL MPV 8.7 L (9.4-12.3) fL Immature Gran % (Auto) 0.3 (0.0-0.4) % Neut % (Auto) 72.6 (45-73) % Lymph % (Auto) 20.3 (20-40) % [place] % (Auto) 5.6 (2-11) % Eos % (Auto) 0.7 (0-4) % Baso % (Auto) 0.5 (0-2) % Lymph # (Auto) 1.9 (1.2-4.9) X10*3/uL [place] # (Auto) 0.5 (0.1-1.2) X10*3/uL Eos # (Auto) 0.1 (0.0-0.4) X10*3/uL Baso # (Auto) 0.1 (0.0-0.2) X10*3/uL Abs Immat Gran (auto) 0.03 (0.00-0.03) X10*3/uL Absolute Neuts (auto) 6.7 (2.0-8.3) x10*3/uL Absolute Nucleated RBC 0.000 (0.0-0.012) X10*3/uL Nucleated RBC % (auto) 0.0 (0.0-0.2) /100WBC Sodium 139 (135-145) mmol/L Potassium 4.4 (3.3-5.1) mmol/L Chloride 98 (96-108) mmol/L Carbon Dioxide 27 (22-29) mmol/L Anion Gap 18 (12-20) BUN 15 (9-16) mg/dL Creatinine 0.79 (0.5-1.4) mg/dL Estim Creat Clear Calc 74.5 Estimated GFR > 60 Random Glucose 110 (60-115) mg/dL Lactic Acid 1.0 (0.5-2.0) mmol/L Calcium 9.9 D (8.4-10.2) mg/dL Magnesium 2.2 (1.6-2.6) mg/dL Total Bilirubin 0.4 (0.0-1.0) mg/dL Direct Bilirubin < 0.2 (0.0-0.5) mg/dL AST 59 H (5-31) U/L ALT 74 H (0-31) U/L Alkaline Phosphatase 122 H (39-117) U/L Total Protein 8.9 H (6.5-8.0) g/dL Albumin 4.7 (3.5-5.0) g/dL Lipase 55 (8-78) U/L ECG Data Attestation: I personally reviewed and interpreted this ECG as follows: ECG interpretation date: 02/28/22 ECG interpretation time: 13:14 Interpretation: Rate: 80 Rhythm: NSR [place]: normal Normal P waves. Normal ARSEN. Normal QRS complex. ST T wave : normal no FRIEDA qTC: slightly prolonged prior studies: no acute ischemia The study has been interpreted contemporaneously by me. . Discharge Plan Discharge Clinical Impression: Abscess, intra-abdominal, postoperative Patient Disposition: Admitted As Inpatient
[2022-02-28 12:11] VITALS: BP 152/70; PULSE 117; RESP 16; TEMP 36.9; O2SAT 98; BMI 20.7
--- NOTE | 2022-02-28 12:11 | P.HPGS_ITS ---
History of Present Illness History of Present Illness Date of Service: 02/28/22 Chief complaint: abscess Narrative: Demetria Reyes is a 51 year old female with a history of COPD, chronic pain on gabapentin, who presented on 02/12/2022 with acute appendicitis and dehydration secondary to vomiting. After resuscitation, she was taken for a laparoscopic appendectomy and noted to have perforated appendicitis that was contained by her omentum. Intraoperative cultures grew out E coli and Bacteroides, both of which were susceptible to cefazolin. She was discharged with a normal white blood cell count and afebrile on cefazolin and completed the course of antibiotics. She presented to the office yesterday with right lower quadrant and suprapubic abdominal plain in complaints of diarrhea. Labs showed a normal white blood cell count but a thrombocytosis. A stat CT was ordered which demonstrated a pelvic abscess. This was discussed with Drs. Tierney & Mira. The findings were discussed with the patient and her significant other and the patient is being admitted for antibiotics, pain management and percutaneous drainage. The patient reports progression of the pain and is tearful at times. She has been experiencing diarrhea but denies any fevers, she reports uncontrollable saul n which is different than her chronic pain. Review of Systems Review of Systems: Yes all other systems are reviewed and are negative Constitutional: Constitutional: Reports as per [facility] Past Medical History Medical History Annual physical exam Anxiety Asthma Bilateral hand numbness COPD (chronic obstructive pulmonary disease) Diarrhea Eating disorder HTN (hypertension) Hyperlipidemia Left ankle sprain Family History Family History Brother Substance use disorder Brother Substance use disorder Mother Mental health disorder [place] (myocardial infarction), Onset Age: 64 Surgical History Surgical History History of bladder suspension procedure History of laparoscopic appendectomy History of thyroidectomy Hx of hysterectomy Social History Social History Household Members: Spouse 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:: , 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, 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 Housing: House Do you presently have visiting nurse or other home services: No Alcohol intake: never Patient Tobacco Use Status: Former Tobacco user Tobacco use type: Cigarette e-Cigarette/Vaping Use: Never Used Advance Directives: Yes Advance Directives on File: Yes Advance Directives Date on File: 02/12/22 service: No Current occupational status: employed 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 Cognitive needs: No Hearing needs: No Vision needs: Yes Meds Allergies Allergy/AdvReac Type Severity Reaction Status Date / Time No Known Allergies Allergy Verified 02/27/22 14:58 Active Medications: Current Medications Piperacillin Sod/Tazobactam (Sod 3.375 gm/ Sodium Chloride) 50 mls @ 100 mls/hr IV ONCE ONE Stop: 02/28/22 12:35 Sodium Chloride (Ns) 1,000 mls @ 999 mls/hr IV .Q1H1M DELFINA Stop: 02/28/22 13:15 Pharmacy Consult (Consult Rx Perform Med Rec) 1 each MISCELLANE ONCE PRN PRN Reason: Consult order Home Medications Medication Instructions Recorded Confirmed Last Taken Type hydroxyzine HCl 25 mg tablet 25 mg PO DAILY 02/23/21 02/28/22 02/27/22 History trazodone 50 mg tablet 50 mg PO DAILY 02/23/21 02/28/22 02/27/22 History Physical Exam Vital Signs: On exam, she is obviously uncomfortable Sclera are anicteric Abdomen is tender, incisions are healing well as noted yesterday at the office visit. Results Results Labs: wbc 9.2; Hb 11.7, Plts 716K BUN 15, Cr 0.79; lytes WNL, Ca & Mag WNL. Glc 110 TBili <0.2, AST 59, ALT 74, Alk Phos 122 Lip WNL Coags Pending Abdomen CT scan report/results: report reviewed and image reviewed CT scan - pelvis: report reviewed and image reviewed Additional studies: Today's labs are currently pending Labs from 02/27/2022 showed a normal white count of 9.9; anemia with a hemoglobin of 10.6; thrombocytosis with a platelet count 675 K; electrolytes are within normal parameters, BUN 15, creatinine 0.74, glucose 94 Total bilirubin and alkaline phosphatase are normal; transaminases are slightly elevated Repeat labs from ER admission are currently pending 02/28/22 CT/CT abdomen pelvis w IV con IMPRESSION: 1.? New fluid collection anterior right pelvis approximately 3.5 x 5.7 x 3.2 cm. Tiny adjacent satellite collection 1 cm size. 2.? No bowel obstruction, pneumatosis, or free air. Assessment and Plan (1) Pelvic abscess in female: Status: Acute (2) S/P laparoscopic appendectomy: Status: Acute (3) Acute perforated appendicitis: Status: Acute (4) Hyperlipidemia: Status: Acute (5) HTN (hypertension): Status: Acute (6) COPD (chronic obstructive pulmonary disease): Status: Acute Plan Admit for pain management, IV antibiotics and hydration. Plan for bowel rest CT-guided percutaneous drainage with placement of a pigtail catheter is ordered ADDENDUM 1336 The patient reports she is more comfortable after getting Dilaudid, 0.25 mg, however she is having progressive nausea and the Zofran administered roughly 45 minutes ago is not helping. Patient vomited in front of me into an emesis bag. I have ordered Atarax, 25 mg IM Q 6 hours p.r.n. nausea/vomiting. Continue IV antibiotics and analgesics. Await percutaneous drainage/pigtail catheter placement. Quality Stroke Does the patient have a stroke diagnosis?: No VTE Prior VTE?: No VTE Risk Level:: Surgical - moderate VTE Device Contraindication: N/A - Device Ordered VTE Drug Contraindication: N/A - Med Ordered Procedures Date of Service Date of Service: 02/28/22
--- NOTE | 2022-02-28 12:26 | ECG_ITS ---
Test Reason : cp Blood Pressure : / mmHG Vent. Rate : 080 BPM Atrial Rate : 080 BPM P-R Int : 162 ms QRS Dur : 082 ms QT Int : 404 ms P-R-T Axes : 031 035 024 degrees QTc Int : 465 ms Normal sinus rhythm Nonspecific T wave abnormality Abnormal ECG No previous ECGs available Referred By: Elly Nagel Electronically Signed By:GAYE ELIZALDE MD
--- NOTE | 2022-02-28 12:30 | PHA.MEDREC ---
Pharmacy Consult ? Medication Reconciliation Pharmacy has completed the medication reconciliation. Patient and confirmed all medications. Reports she is over due for her B12 injection. Grecia Dominguez, EdwardD
[2022-02-28 12:33] LABS: MANUAL DIFF FLAG NO
[2022-02-28 12:37] LABS: Basophils Absolute Auto 0.1 X10*3/uL (0.0-0.2); Basophils Percent Auto 0.5 % (0-2); Eosinophils Absolute Auto 0.1 X10*3/uL (0.0-0.4); Eosinophils Percent Auto 0.7 % (0-4); Hematocrit 35.9 % (37.0-47.0); Hemoglobin 11.7 g/dl (12.0-16.0); Imm Gran Abs Auto 0.03 X10*3/uL (0.00-0.03); Imm Gran Pct Auto 0.3 % (0.0-0.4); Lymphocytes Absolute Auto 1.9 X10*3/uL (1.2-4.9); Lymphocytes Percent Auto 20.3 % (20-40); Mean Corpuscular HGB Conc 32.6 g/dl (31.0-35.0); Mean Corpuscular Hemoglobin 30.7 pg (27.0-33.0); Mean Corpuscular Volume 94.2 fL (80.0-98.0); Mean Platelet Volume 8.7 fL (9.4-12.3); Monocytes Absolute Auto 0.5 X10*3/uL (0.1-1.2); Monocytes Percent Auto 5.6 % (2-11); Neutrophils Absolute Auto 6.7 x10*3/uL (2.0-8.3); Neutrophils Percent Auto 72.6 % (45-73); Platelet Count 716 X10*3/uL (160-400); Red Blood Count 3.81 X10*6/uL (4.20-5.50); Red Cell Distribution Width 12.2 % (11.0-16.0); White Blood Count 9.2 X10*3/uL (4.8-10.8)
[2022-02-28] MEDS: HYDROmorphone HCl 1 MG/ML SYRINGE IVPUSH (12:51)
[2022-02-28] MEDS: HYDROmorphone HCl 0.5 MG/0.5 ML SYRINGE 0.25 MG IVPUSH (12:52)
[2022-02-28] MEDS: ondansetron HCL 4 MG/2 ML VIAL IVPUSH ×3 (12:52→21:01)
[2022-02-28 12:54] LABS: Alanine Aminotransferase 74 U/L (0-31); Albumin Level 4.7 g/dL (3.5-5.0); Alkaline Phosphatase 122 U/L (39-117); Anion Gap 18 (12-20); Aspartate Amino Transferase 59 U/L (5-31); Bilirubin Direct < 0.2 mg/dL (0.0-0.5); Bilirubin Total 0.4 mg/dL (0.0-1.0); Blood Urea Nitrogen 15 mg/dL (9-16); Calcium 9.9 mg/dL (8.4-10.2); Carbon Dioxide 27 mmol/L (22-29); Chloride 98 mmol/L (96-108); Creatinine Clr Calc Pharmacy 74.5; Estimated Glomerular Filt Rate > 60; Glucose Random 110 mg/dL (60-115); Lipase 55 U/L (8-78); Magnesium 2.2 mg/dL (1.6-2.6); Potassium 4.4 mmol/L (3.3-5.1); Sodium 139 mmol/L (135-145); Total Protein 8.9 g/dL (6.5-8.0)
[2022-02-28 12:59] LABS: COVID-19 Test Negative (Negative); IDNOW Serial# 9DB6401D
[2022-02-28] MEDS: 0.9 % Sodium Chloride 1,000 ML 999 ML IV (13:03)
[2022-02-28] MEDS: Piperacillin Sodium/Tazobactam 3.375 GM in 0.9 % Sodium Chloride 50 ML IV ×2 (13:03→19:15)
[2022-02-28] MEDS: HYDROmorphone HCl 0.5 MG/0.5 ML SYRINGE IVPUSH ×2 (13:04→19:16)
[2022-02-28 13:37] LABS: INTERNATIONAL NORM RATIO 1.2 (0.9-1.1); Prothrombin Time 13.6 SEC (10.0-13.1)
[2022-02-28 13:39] LABS: Partial Thromboplastin Time 30.4 SEC (26.0-36.4)
[2022-02-28] MEDS: Lactated Ringers 1,000 ML 100 ML IVCONT (17:42)
--- NOTE | 2022-02-28 18:36 | PM.EVENT ---
Event Note Date of Service: 02/28/22 Event Note: Patient tearful and nauseated. IR drainage was successful. Turbid/bloody fluid. Gram stain, cultures and sensitivities pending. Okay for ice chips or sips of water. See orders re: anti emetics, psych meds & pain meds.
--- NOTE | 2022-02-28 18:56 | PC.NURSE ---
PT TO IR AT 1500, MEDICATION FOR PAIN PRIOR TO GOING TO IR WITH ZOFRAN AND HYDROMORPHONE. ALSO MEDICATED FOR NAUSEA IN IR. PT RETURNED AT 1730, PT ASSESSED AT 1740 STATED SHE WAS FEELING BETTER AT THAT TIME PT. AMB TO BR INDEPENDENTLY. 45CC OF SEROUSANGUS FROM PARKER DRAIN
[2022-02-28] MEDS: hydrOXYzine HCL 50 MG/ML VIAL IM (19:15)
[2022-02-28 20:17] VITALS: BP 131/72; PULSE 82; RESP 18; TEMP 36.6; O2SAT 96
[2022-02-28] MEDS: Gabapentin 300 MG CAPSULE PO (20:53)
--- NOTE | 2022-02-28 22:12 | MHC.CM.PN ---
CM met with admitted patient with bed assignment pending. Will move to overflow. Pt recently admitted to [facility] [place] 02/12-02/15 appendectomy with perforation. Admitted for abscess needing IR guided percutaneous pigtail catheter. 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 No DME/services. Moderna x2, no booster. HCP on file. HCP/ Jai Nicole ([phone]). D/C plan: Home without services. will transport. CM to follow for discharge needs.
[2022-02-28 22:26] VITALS: BP 131/80; PULSE 66; RESP 18; TEMP 36.6; O2SAT 99
[2022-02-28] MEDS: LORazepam 1 MG TABLET PO (22:52)
--- NOTE | 2022-02-28 22:55 | PC.NURSE ---
pt very anxious and tearful. hospitalist notified - 1mg ativan po ordered for anxiety. pt moved from room 6 in overflow to room 10 because she did not like the room in the corner with the door. pt called stating patient is crying and anxious and wants to go home. this RN went into assess patient, offered ativan po , tried to make pt more comfortable - moved to room 10. given call lane. asked if there as anything else patient needs at this time. patient denies, is thankful and apologetic. will continue to monitor closely and meet pt needs.
[2022-03-01 00:38] VITALS: BP 132/79; PULSE 86; RESP 16; TEMP 35.9; O2SAT 98
[2022-03-01] MEDS: Lactated Ringers 1,000 ML 100 ML IVCONT ×2 (00:41→11:54)
[2022-03-01] MEDS: Piperacillin Sodium/Tazobactam 3.375 GM in 0.9 % Sodium Chloride 50 ML IV ×4 (01:47→18:48)
--- NOTE | 2022-03-01 03:06 | PC.NURSE ---
Assumed care of patient at 2300. Patient alert and oriented x3, denies pain, reports tender abdomen at surgical site. PARKER drain with about 10 mls of serosanguineous drainage at 0000. Denies nausea at this time. vss, callbell within reach.
[2022-03-01] MEDS: HYDROmorphone HCl 0.5 MG/0.5 ML SYRINGE IVPUSH (04:57)
[2022-03-01] MEDS: ondansetron HCL 4 MG/2 ML VIAL IVPUSH (04:57)
[2022-03-01 06:59] LABS: MANUAL DIFF FLAG NO
[2022-03-01 07:04] LABS: Basophils Percent Auto 0.7 % (0-2); Eosinophils Absolute Auto 0.1 X10*3/uL (0.0-0.4); Eosinophils Percent Auto 1.3 % (0-4); Hematocrit 31.4 % (37.0-47.0); Hemoglobin 10.2 g/dl (12.0-16.0); Imm Gran Abs Auto 0.02 X10*3/uL (0.00-0.03); Imm Gran Pct Auto 0.4 % (0.0-0.4); Lymphocytes Absolute Auto 1.2 X10*3/uL (1.2-4.9); Lymphocytes Percent Auto 22.1 % (20-40); Mean Corpuscular HGB Conc 32.5 g/dl (31.0-35.0); Mean Corpuscular Hemoglobin 30.4 pg (27.0-33.0); Mean Corpuscular Volume 93.7 fL (80.0-98.0); Mean Platelet Volume 8.7 fL (9.4-12.3); Monocytes Absolute Auto 0.5 X10*3/uL (0.1-1.2); Monocytes Percent Auto 8.5 % (2-11); Neutrophils Absolute Auto 3.7 x10*3/uL (2.0-8.3); Platelet Count 568 X10*3/uL (160-400); Red Blood Count 3.35 X10*6/uL (4.20-5.50); Red Cell Distribution Width 12.1 % (11.0-16.0); White Blood Count 5.6 X10*3/uL (4.8-10.8)
--- NOTE | 2022-03-01 07:22 | P.PNGS_ITS ---
Subjective Subjective Date of Service: 03/01/22 Patient reports: feels better and flatus Interval history: Reports that she is feeling a little better. She still has local suprapubic and right lower quadrant pain but her nausea and vomiting is better controlled. She is hungry and interested in trying clear liquids. She otherwise denies pain in her chest, trouble breathing and her diarrhea has resolved at this point. Physical Exam Vital Signs: Vital Signs: Last Vital Signs Temp 96.7 F L 03/01/22 00:38 Pulse 86 03/01/22 00:38 Resp 16 03/01/22 00:38 BP 132/79 03/01/22 00:38 Pulse Ox 98 03/01/22 00:38 O2 Del Method 03/01/22 00:38 BMI result Body Mass Index 20.7 She is nontoxic and more comfortable Abdomen has appropriate tenderness Bloody/purulence drainage is present from the abscess cavity Objective Data Active Medications Albuterol Sulfate (Albuterol Sulfate 90 Mcg 8 Gm Inhaler) 2 puff INHALE Q4H PRN PRN Reason: Wheezing Albuterol Sulfate (Albuterol Sulfate 90 Mcg 8 Gm Inhaler) 2 puff INHALE Q4H PRN PRN Reason: Wheezing Gabapentin (Gabapentin 300 Mg Capsule) 300 mg PO BEDTIME [facility] Last Admin: 02/28/22 20:53 Dose: 300 mg Documented By: FELIPE Heparin Sodium (Porcine) (Heparin Sodium,Porcine 5,000 Unit/Ml Vial) 5,000 unit SUBCUT Q12H [facility] Hydromorphone HCl (Hydromorphone Hcl 0.5 Mg/0.5 Ml Syringe) 0.5 mg IVPUSH Q2H PRN; Protocol PRN Reason: Pain, Severe (Pain Scale 7-10) Last Admin: 03/01/22 04:57 Dose: 0.5 mg Documented By: MINO Hydroxyzine HCl (Hydroxyzine Hcl 25 Mg Tablet) 25 mg PO DAILY [facility] Hydroxyzine HCl (Hydroxyzine Hcl 50 Mg/Ml Vial) 50 mg IM Q6H PRN PRN Reason: Nausea and Vomiting Last Admin: 02/28/22 19:15 Dose: 50 mg Documented By: EVANS Piperacillin Sod/Tazobactam (Sod 3.375 gm/ Sodium Chloride) 50 mls @ 100 mls/hr IV Q6H [facility] Last Infusion: 03/01/22 02:23 Dose: 0 mls/hr Documented By: JUAN PABLO Lactated Ringer's (Lr) 1,000 mls @ 100 mls/hr IVCONT .Q10H [facility] Last Admin: 03/01/22 00:41 Dose: 100 mls/hr Documented By: JUAN PABLO Lisinopril (Lisinopril 20 Mg Tablet) 20 mg PO DAILY [facility]; Protocol Ondansetron HCl (Ondansetron Hcl 4 Mg/2 Ml Vial) 4 mg IVPUSH Q6H PRN PRN Reason: Nausea and Vomiting Last Admin: 03/01/22 04:57 Dose: 4 mg Documented By: MINO Pharmacy Consult (Consult Rx Perform Med Rec) 1 each MISCELLANE ONCE PRN PRN Reason: Consult order Sertraline HCl (Sertraline Hcl 100 Mg Tablet) 100 mg PO DAILY [facility] Sertraline HCl (Sertraline Hcl 25 Mg Tablet) 25 mg PO DAILY [facility] Sodium Chloride (0.9 % Sodium Chloride Flush 3 Ml Syringe) 3 ml IVFLUSH QSHIFT [facility] Last Admin: 03/01/22 00:41 Dose: Not Given Documented By: JUAN PABLO Non-Admin Reason: IV Running Trazodone HCl (Trazodone Hcl 50 Mg Tablet) 50 mg PO DAILY [facility] Labs CBC & Chem 7: 03/01/22 06:34 03/01/22 06:34 Labs: Laboratory Results - last 24 hr 02/28/22 02/28/22 02/28/22 12:24 12:24 12:24 MCV 94.2 MCH 30.7 MCHC 32.6 RDW 12.2 Plt Count 716 H MPV 8.7 L Immature Gran % (Auto) 0.3 Neut % (Auto) 72.6 Lymph % (Auto) 20.3 [place] % (Auto) 5.6 Eos % (Auto) 0.7 Baso % (Auto) 0.5 Lymph # (Auto) 1.9 [place] # (Auto) 0.5 Eos # (Auto) 0.1 Baso # (Auto) 0.1 Abs Immat Gran (auto) 0.03 Absolute Neuts (auto) 6.7 Absolute Nucleated RBC 0.000 Nucleated RBC % (auto) 0.0 PT INR APTT Anion Gap 18 Estim Creat Clear Calc 74.5 Estimated GFR > 60 Random Glucose 110 Lactic Acid 1.0 Calcium 9.9 D Magnesium 2.2 Total Bilirubin 0.4 Direct Bilirubin < 0.2 AST 59 H ALT 74 H Alkaline Phosphatase 122 H Total Protein 8.9 H Albumin 4.7 Lipase 55 COVID-19 ([facility]) COVID-19 Clin Com 02/28/22 02/28/22 03/01/22 12:36 13:21 06:34 MCV 93.7 MCH 30.4 MCHC 32.5 RDW 12.1 Plt Count 568 H MPV 8.7 L Immature Gran % (Auto) 0.4 Neut % (Auto) 67.0 Lymph % (Auto) 22.1 [place] % (Auto) 8.5 Eos % (Auto) 1.3 Baso % (Auto) 0.7 Lymph # (Auto) 1.2 [place] # (Auto) 0.5 Eos # (Auto) 0.1 Baso # (Auto) 0.0 Abs Immat Gran (auto) 0.02 Absolute Neuts (auto) 3.7 Absolute Nucleated RBC 0.000 Nucleated RBC % (auto) 0.0 PT 13.6 H INR 1.2 H APTT 30.4 Anion Gap Estim Creat Clear Calc Estimated GFR Random Glucose Lactic Acid Calcium Magnesium Total Bilirubin Direct Bilirubin AST ALT Alkaline Phosphatase Total Protein Albumin Lipase COVID-19 ([facility]) Negative COVID-19 Clin Com See Note Microbiology Microbiology Results: Gram stain, culture and sensitivities are currently pending. The patient previously had Bacteroides that was beta lactamase positive and E coli that was sensitive to cefazolin Procedures Date of Service Date of Service: 03/01/22 Progress Note: A&P Assessment and plan (1) Abscess, intra-abdominal, postoperative: Status: Acute (2) Pelvic abscess in female: Status: Acute (3) S/P laparoscopic appendectomy: Status: Acute (4) COPD (chronic obstructive pulmonary disease): Status: Acute (5) HTN (hypertension): Status: Acute Plan Start clears.. If the patient becomes nauseated or vomits Can advanced diet as tolerated Start subcu heparin; await Gram stain, culture and sensitivities. Continue Zosyn for now. Suspect Bacteroides based on prior OR culture results. Time Spent With Patient Time: Total time spent is greater than 50% in coordination of care (as documented) at patient's floor/unit and/or counseling patient: Quality Stroke Does the patient have a stroke diagnosis?: No VTE Prior VTE?: No VTE Risk Level:: Surgical - moderate VTE Device Contraindication: N/A - Device Ordered VTE Drug Contraindication: N/A - Med Ordered
[2022-03-01 07:23] LABS: Anion Gap 14 (12-20); Blood Urea Nitrogen 10 mg/dL (9-16); Calcium 9.1 mg/dL (8.4-10.2); Carbon Dioxide 29 mmol/L (22-29); Chloride 101 mmol/L (96-108); Creatinine Clr Calc Pharmacy 75.5; Estimated Glomerular Filt Rate > 60; Glucose Random 104 mg/dL (60-115); Potassium 4.3 mmol/L (3.3-5.1); Sodium 140 mmol/L (135-145)
[2022-03-01] MEDS: Heparin Sodium,Porcine 5,000 UNIT/ML VIAL 5000 UNIT SUBCUT ×2 (07:43→19:35)
[2022-03-01] MEDS: lisinopriL 20 MG TABLET PO (07:45)
[2022-03-01] MEDS: Sertraline HCL 25 MG TABLET PO (07:45)
[2022-03-01] MEDS: Sertraline HCL 100 MG TABLET PO (07:45)
[2022-03-01] MEDS: hydrOXYzine HCL 25 MG TABLET PO (07:45)
[2022-03-01] MEDS: traZODone HCL 50 MG TABLET PO (07:45)
[2022-03-01 07:50] VITALS: BP 118/73; PULSE 73; RESP 16; O2SAT 99
[2022-03-01] MEDS: Acetaminophen 325 MG TABLET 975 MG PO ×2 (14:10→21:03)
[2022-03-01 16:19] VITALS: BP 94/57; PULSE 75; RESP 16; O2SAT 97
--- NOTE | 2022-03-01 16:44 | PC.NURSE ---
[facility] Dr. Barron (QB) to inform him of pts low BP 94/57 - per dr Barron, need to contact gen surgery but order to hang 1L LR bolus
[2022-03-01 17:29] VITALS: BP 107/57; PULSE 73; RESP 18; TEMP 36.6; O2SAT 97
[2022-03-01] MEDS: 0.9 % Sodium Chloride Flush 3 ML SYRINGE IVFLUSH (19:35)
[2022-03-01] MEDS: Gabapentin 300 MG CAPSULE PO (19:35)
[2022-03-01 19:52] VITALS: BP 106/55; PULSE 81; RESP 17; TEMP 36.9; O2SAT 97
[2022-03-02] VITALS (7 sets, daily range): BP systolic 94–124; BP diastolic 57–77; PULSE 60–82; RESP 16–18; TEMP 36–37.4; O2SAT 95–99
[2022-03-02] MEDS: Piperacillin Sodium/Tazobactam 3.375 GM in 0.9 % Sodium Chloride 50 ML IV ×4 (00:35→17:38)
[2022-03-02] MEDS: Lactated Ringers 1,000 ML 100 ML IVCONT (06:04)
[2022-03-02] MEDS: lisinopriL 20 MG TABLET PO (08:58)
[2022-03-02] MEDS: Heparin Sodium,Porcine 5,000 UNIT/ML VIAL 5000 UNIT SUBCUT ×2 (08:58→20:19)
[2022-03-02] MEDS: hydrOXYzine HCL 25 MG TABLET PO (08:58)
[2022-03-02] MEDS: Sertraline HCL 100 MG TABLET PO (08:58)
[2022-03-02] MEDS: Sertraline HCL 25 MG TABLET PO (08:58)
[2022-03-02] MEDS: Acetaminophen 325 MG TABLET 975 MG PO ×2 (09:12→17:38)
--- NOTE | 2022-03-02 09:48 | P.PNGS_ITS ---
Subjective Subjective Date of Service: 03/02/22 Interval history: Patient is tearful this morning, reports feeling anxious. Denies significant abdominal pain. She is tolerating regular diet without nausea or vomiting. Physical Exam Vital Signs: Vital Signs: Last Vital Signs Temp 97.4 F 03/02/22 07:41 Pulse 70 03/02/22 07:41 Resp 16 03/02/22 07:41 BP 115/68 03/02/22 07:41 Pulse Ox 98 03/02/22 07:41 O2 Del Method 03/02/22 07:41 BMI result Body Mass Index 20.7 Const: General: anxious Nutritional Appearance: well nourished Orientation/consciousness: patient oriented x3 Limitations: no limitations HEENT: Head: Yes normocephalic Resp: Other: Breathing comfortably on room air, no respiratory distress GI: Other: soft and nondistended. IR drain intact with minimal tenderness. No erythema or edema. Normal bowel sounds Skin: Other: warm, dry, no rash, normal color Neuro: General: patient oriented x3 Extrem: Other: no pedal edema Objective Data Active Medications Acetaminophen (Acetaminophen 325 Mg Tablet) 975 mg PO Q6H PRN PRN Reason: Pain, Mild (Pain Scale 1-3) Last Admin: 03/02/22 09:12 Dose: 975 mg Documented By: CHARAN Albuterol Sulfate (Albuterol Sulfate 90 Mcg 8 Gm Inhaler) 2 puff INHALE Q4H PRN PRN Reason: Wheezing Albuterol Sulfate (Albuterol Sulfate 90 Mcg 8 Gm Inhaler) 2 puff INHALE Q4H PRN PRN Reason: Wheezing Gabapentin (Gabapentin 300 Mg Capsule) 300 mg PO BEDTIME [facility] Last Admin: 03/01/22 19:35 Dose: 300 mg Documented By: BUTCH Heparin Sodium (Porcine) (Heparin Sodium,Porcine 5,000 Unit/Ml Vial) 5,000 unit SUBCUT Q12H [facility] Last Admin: 03/02/22 08:58 Dose: 5,000 unit Documented By: CHARAN Hydromorphone HCl (Hydromorphone Hcl 0.5 Mg/0.5 Ml Syringe) 0.5 mg IVPUSH Q2H PRN; Protocol PRN Reason: Pain, Severe (Pain Scale 7-10) Last Admin: 03/01/22 04:57 Dose: 0.5 mg Documented By: MINO Hydroxyzine HCl (Hydroxyzine Hcl 25 Mg Tablet) 25 mg PO DAILY [facility] Last Admin: 03/02/22 08:58 Dose: 25 mg Documented By: CHARAN Hydroxyzine HCl (Hydroxyzine Hcl 50 Mg/Ml Vial) 50 mg IM Q6H PRN PRN Reason: Nausea and Vomiting Last Admin: 02/28/22 19:15 Dose: 50 mg Documented By: EVANS Piperacillin Sod/Tazobactam (Sod 3.375 gm/ Sodium Chloride) 50 mls @ 100 mls/hr IV Q6H [facility] Last Infusion: 03/02/22 06:43 Dose: 0 mls/hr Documented By: BUTCH Lactated Ringer's (Lr) 1,000 mls @ 50 mls/hr IVCONT .Q20H [facility] Last Admin: 03/02/22 06:04 Dose: 100 mls/hr Documented By: BUTCH Lisinopril (Lisinopril 20 Mg Tablet) 20 mg PO DAILY [facility]; Protocol Last Admin: 03/02/22 08:58 Dose: 20 mg Documented By: CHARAN Lorazepam (Lorazepam 0.5 Mg Tablet) 0.5 mg PO Q4H PRN PRN Reason: Anxiety Ondansetron HCl (Ondansetron Hcl 4 Mg/2 Ml Vial) 4 mg IVPUSH Q6H PRN PRN Reason: Nausea and Vomiting Last Admin: 03/01/22 04:57 Dose: 4 mg Documented By: MINO Pharmacy Consult (Consult Rx Perform Med Rec) 1 each MISCELLANE ONCE PRN PRN Reason: Consult order Sertraline HCl (Sertraline Hcl 100 Mg Tablet) 100 mg PO DAILY [facility] Last Admin: 03/02/22 08:58 Dose: 100 mg Documented By: CHARAN Sertraline HCl (Sertraline Hcl 25 Mg Tablet) 25 mg PO DAILY [facility] Last Admin: 03/02/22 08:58 Dose: 25 mg Documented By: CHARAN Sodium Chloride (0.9 % Sodium Chloride Flush 3 Ml Syringe) 3 ml IVFLUSH QSHIFT [facility] Last Admin: 03/02/22 08:58 Dose: Not Given Documented By: CHARAN Non-Admin Reason: IV Running Trazodone HCl (Trazodone Hcl 50 Mg Tablet) 250 mg PO BEDTIME [facility] Labs CBC & Chem 7: 03/01/22 06:34 03/01/22 06:34 Microbiology Microbiology Results: Microbiology 02/28/22 12:35 Blood Culture - Preliminary Blood - Venous No growth after 24 hours. 02/28/22 12:24 Blood Culture - Preliminary Blood - Venous No growth after 24 hours. 02/28/22 16:56 Gram Stain - Final Abscess Appendiceal Routine Culture - Preliminary Culture in progress. Anaerobic Culture - Preliminary Culture in progress. Procedures Date of Service Date of Service: 03/02/22 Progress Note: A&P Assessment and plan (1) Abscess, intra-abdominal, postoperative: Status: Acute (2) Pelvic abscess in female: Status: Acute (3) S/P laparoscopic appendectomy: Status: Acute (4) COPD (chronic obstructive pulmonary disease): Status: Acute (5) HTN (hypertension): Status: Acute Plan 51-year-old female status post IR drainage of abscess following perforated appendicitis. Patient's abdominal exam is benign the PARKER remains intact. She is tolerating regular diet without nausea or vomiting. Will add Ativan p.o. p.r.n. anxiety. Culture results are pending, continue Zosyn. Antibiotics can be adjusted once the culture and sensitivities are complete. Time Spent With Patient Time: Total time spent is greater than 50% in coordination of care (as documented) at patient's floor/unit and/or counseling patient: Quality Stroke Does the patient have a stroke diagnosis?: No VTE Prior VTE?: No VTE Risk Level:: Surgical - moderate VTE Device Contraindication: N/A - Device Ordered VTE Drug Contraindication: N/A - Med Ordered
[2022-03-02] MEDS: LORazepam 0.5 MG TABLET PO (10:53)
[2022-03-02] MEDS: Lactated Ringers 1,000 ML 50 ML IVCONT (16:35)
[2022-03-02] MEDS: Gabapentin 300 MG CAPSULE PO (20:19)
[2022-03-02] MEDS: 0.9 % Sodium Chloride Flush 3 ML SYRINGE IVFLUSH (20:20)
[2022-03-03] MEDS: Piperacillin Sodium/Tazobactam 3.375 GM in 0.9 % Sodium Chloride 50 ML IV ×2 (00:14→05:53)
[2022-03-03 03:28] VITALS: BP 134/74; PULSE 62; RESP 16; TEMP 36.6; O2SAT 96
[2022-03-03 07:46] VITALS: BP 144/66; PULSE 68; RESP 16; TEMP 36.3; O2SAT 97
--- NOTE | 2022-03-03 09:35 | PM.PNGS ---
Subjective Subjective Date of Service: 03/03/22 Interval history: Patient feels improved today with decreased abdominal pain. She is tolerating regular diet without nausea or vomiting. She really would like to go home today. Physical Exam Vital Signs: Vital Signs: Last Vital Signs Temp 97.3 F 03/03/22 07:46 Pulse 68 03/03/22 07:46 Resp 16 03/03/22 07:46 BP 144/66 H 03/03/22 07:46 Pulse Ox 97 03/03/22 07:46 O2 Del Method 03/03/22 07:46 BMI result Body Mass Index 20.7 Const: General: anxious Nutritional Appearance: well nourished Orientation/consciousness: patient oriented x3 Limitations: no limitations HEENT: Head: Yes normocephalic Resp: Other: Breathing comfortably on room air, no respiratory distress GI: Other: soft and nondistended. IR drain intact with minimal tenderness. No erythema or edema. Normal bowel sounds Skin: Other: warm, dry, no rash, normal color Neuro: General: patient oriented x3 Extrem: Other: no pedal edema Objective Data Active Medications Acetaminophen (Acetaminophen 325 Mg Tablet) 975 mg PO Q6H PRN PRN Reason: Pain, Mild (Pain Scale 1-3) Last Admin: 03/02/22 17:38 Dose: 975 mg Documented By: CHARAN Albuterol Sulfate (Albuterol Sulfate 90 Mcg 8 Gm Inhaler) 2 puff INHALE Q4H PRN PRN Reason: Wheezing Albuterol Sulfate (Albuterol Sulfate 90 Mcg 8 Gm Inhaler) 2 puff INHALE Q4H PRN PRN Reason: Wheezing Gabapentin (Gabapentin 300 Mg Capsule) 300 mg PO BEDTIME [facility] Last Admin: 03/02/22 20:19 Dose: 300 mg Documented By: MAURISIO Heparin Sodium (Porcine) (Heparin Sodium,Porcine 5,000 Unit/Ml Vial) 5,000 unit SUBCUT Q12H [facility] Last Admin: 03/02/22 20:19 Dose: 5,000 unit Documented By: MAURISIO Hydromorphone HCl (Hydromorphone Hcl 0.5 Mg/0.5 Ml Syringe) 0.5 mg IVPUSH Q2H PRN; Protocol PRN Reason: Pain, Severe (Pain Scale 7-10) Last Admin: 03/01/22 04:57 Dose: 0.5 mg Documented By: MINO Hydroxyzine HCl (Hydroxyzine Hcl 25 Mg Tablet) 25 mg PO DAILY [facility] Last Admin: 03/02/22 08:58 Dose: 25 mg Documented By: CHARAN Hydroxyzine HCl (Hydroxyzine Hcl 50 Mg/Ml Vial) 50 mg IM Q6H PRN PRN Reason: Nausea and Vomiting Last Admin: 02/28/22 19:15 Dose: 50 mg Documented By: EVANS Piperacillin Sod/Tazobactam (Sod 3.375 gm/ Sodium Chloride) 50 mls @ 100 mls/hr IV Q6H [facility] Last Infusion: 03/03/22 06:28 Dose: 0 mls/hr Documented By: MAURISIO Lactated Ringer's (Lr) 1,000 mls @ 50 mls/hr IVCONT .Q20H [facility] Last Admin: 03/02/22 16:35 Dose: 50 mls/hr Documented By: CHARAN Lisinopril (Lisinopril 20 Mg Tablet) 20 mg PO DAILY [facility]; Protocol Last Admin: 03/02/22 08:58 Dose: 20 mg Documented By: CHARAN Lorazepam (Lorazepam 0.5 Mg Tablet) 0.5 mg PO Q4H PRN PRN Reason: Anxiety Last Admin: 03/02/22 10:53 Dose: 0.5 mg Documented By: CHARAN Ondansetron HCl (Ondansetron Hcl 4 Mg/2 Ml Vial) 4 mg IVPUSH Q6H PRN PRN Reason: Nausea and Vomiting Last Admin: 03/01/22 04:57 Dose: 4 mg Documented By: MINO Pharmacy Consult (Consult Rx Perform Med Rec) 1 each MISCELLANE ONCE PRN PRN Reason: Consult order Sertraline HCl (Sertraline Hcl 100 Mg Tablet) 100 mg PO DAILY [facility] Last Admin: 03/02/22 08:58 Dose: 100 mg Documented By: CHARAN Sertraline HCl (Sertraline Hcl 25 Mg Tablet) 25 mg PO DAILY [facility] Last Admin: 03/02/22 08:58 Dose: 25 mg Documented By: CHARAN Sodium Chloride (0.9 % Sodium Chloride Flush 3 Ml Syringe) 3 ml IVFLUSH QSHIFT [facility] Last Admin: 03/02/22 20:20 Dose: 3 ml Documented By: MAURISIO Trazodone HCl (Trazodone Hcl 50 Mg Tablet) 250 mg PO BEDTIME [facility] Last Admin: 03/02/22 20:20 Dose: Not Given Documented By: MAURISIO Non-Admin Reason: pt states wrong dose Labs CBC & Chem 7: 03/01/22 06:34 03/01/22 06:34 Microbiology Microbiology Results: Microbiology 02/28/22 16:56 Gram Stain - Final Abscess Appendiceal Routine Culture - Final Escherichia coli Anaerobic Culture - Preliminary Culture in progress. 02/28/22 12:35 Blood Culture - Preliminary Blood - Venous No growth after 48 hours. 02/28/22 12:24 Blood Culture - Preliminary Blood - Venous No growth after 48 hours. Procedures Date of Service Date of Service: 03/03/22 Progress Note: A&P Assessment and plan (1) Abscess, intra-abdominal, postoperative: Status: Acute (2) Pelvic abscess in female: Status: Acute (3) S/P laparoscopic appendectomy: Status: Acute (4) COPD (chronic obstructive pulmonary disease): Status: Acute (5) HTN (hypertension): Status: Acute Plan 51-year-old female status post IR drainage of abscess following perforated appendicitis. Patient's abdominal exam is benign the PARKER remains intact. She is tolerating regular diet without nausea or vomiting. Will discharge patient home on Keflex and Flagyl for the next 10 days. PARKER is not producing much but will keep an to assure complete closure of abscess cavity. Patient will be instructed on management of the PARKER and follow-up with Dr. Lloyd at the end of the week. Patient expressed understanding and agrees with the plan. Time Spent With Patient Time: Total time spent is greater than 50% in coordination of care (as documented) at patient's floor/unit and/or counseling patient: Quality Stroke Does the patient have a stroke diagnosis?: No VTE Prior VTE?: No VTE Risk Level:: Surgical - moderate VTE Device Contraindication: N/A - Device Ordered VTE Drug Contraindication: N/A - Med Ordered
[2022-03-03] MEDS: Sertraline HCL 25 MG TABLET PO (09:37)
[2022-03-03] MEDS: hydrOXYzine HCL 25 MG TABLET PO (09:38)
[2022-03-03] MEDS: lisinopriL 20 MG TABLET PO (09:38)
[2022-03-03] MEDS: Sertraline HCL 100 MG TABLET PO (09:38)
--- NOTE | 2022-03-03 09:46 | MHC.CM.PN ---
PT TO DC HOME TODAY WITH NO SERVICES PT T O ARRANGE TRANSPORT
--- NOTE | 2022-03-04 13:19 | PM.DS ---
DS: Providers Provider Date of Service: 03/03/22 Date of admission: 02/28/22 12:33 Primary care physician: No Brambila MD Attending physician on admission: Srinivasan Lloyd Consults: 02/28/22 12:07 Consult to General Surgery Stat Consulting Provider: Srinivasan Lloyd Reason for consultation: abdominal abscess Has provider been notified: Yes Attending physician on discharge: Diego Ann DS: Diagnosis Discharge Diagnosis (1) Abscess, intra-abdominal, postoperative: Status: Acute (2) Pelvic abscess in female: Status: Acute (3) S/P laparoscopic appendectomy: Status: Acute (4) COPD (chronic obstructive pulmonary disease): Status: Acute (5) HTN (hypertension): Status: Acute DS: Summary Hospital Course Hospital Course: HPI: Demetria Reyes is a 51 year old female with a history of COPD, chronic pain on gabapentin, who presented on 02/12/2022 with acute appendicitis and dehydration secondary to vomiting. After resuscitation, she was taken for a laparoscopic appendectomy and noted to have perforated appendicitis that was contained by her omentum. Intraoperative cultures grew out E coli and Bacteroides, both of which were susceptible to cefazolin. She was discharged with a normal white blood cell count and afebrile on cefazolin and completed the course of antibiotics. She presented to the office yesterday with right lower quadrant and suprapubic abdominal plain in complaints of diarrhea. Labs showed a normal white blood cell count but a thrombocytosis. A CT was ordered which demonstrated a pelvic abscess. The patient reports progression of the pain. She has been experiencing diarrhea but denies any fevers, she reports uncontrollable pain which is different than her chronic pain. HOSPITAL COURSE: The patient was admitted for antibiotics, pain management and percutaneous drainage. A CT fluoroscopy-guided right lower quadrant appendiceal abscess drainage with drain placement was performed on 02/28/22 without complication. The patient improved clinically following the drainage. The following day, her pain was decreased, nausea improved and she was started on clear liquids. She was tolerating this and was advanced to a solid diet later. She was kept inpatient for IV antibiotics until the culture & sensitivities resulted (4 days). She was clinically appearing well with a benign abd exam. The PARKER drain was intact and output was scanty. The abscess cultures grew Escherichia coli. She was discharged to home in stable condition on 03/03/22. She was discharged home on Keflex and Flagyl for 10 days. The PARKER was kept in place to assure complete closure of abscess cavity. Education about drain care was performed. She is to follow up in the office with Dr. Lloyd by the end of next week. Status at Discharge Functional status at discharge: independent ambulation Overall status at discharge: patient is progressing back to baseline Time Spent with Patient Time attestation: Total time spent providing and/or coordinating discharge services: Discharge coordination time: Greater than 30 minutes Quality: Safe Use of Opioids Does Pt have an Active Cancer Diagnosis on the Problem List?: No Quality: Stroke Does the patient have a stroke diagnosis?: No Physical Exam Vital Signs: Vital Signs: Last Vital Signs Temp 97.3 F 03/03/22 07:46 Pulse 68 03/03/22 07:46 Resp 16 03/03/22 07:46 BP 144/66 H 03/03/22 07:46 Pulse Ox 97 03/03/22 07:46 O2 Del Method 03/03/22 07:46 BMI result Body Mass Index 20.7 Const: General: comfortable, no acute distress and alert Orientation/consciousness: patient oriented x3 GI: Other: PARKER drain intact, output scanty Inspection: No distended Palpation (GI): Soft to palpation, no guarding and not rigid Skin: General skin exam: no rashes or lesions noted Neuro: General: patient oriented x3 DS: Data Data Completed and Pending Completed studies during hospitalization [Text1]: Procedures Drainage of Peritoneal Cavity, Percutaneous Approach (02/28/22) Resection of Appendix, Percutaneous Endoscopic Approach (02/12/22) Labs on day of discharge: Preliminary micro results at discharge 02/28/22 16:56 Anaerobic Culture - Preliminary Abscess Appendiceal Culture in progress. 02/28/22 12:35 Blood Culture - Preliminary Blood - Venous No growth after 48 hours. 02/28/22 12:24 Blood Culture - Preliminary Blood - Venous No growth after 48 hours. Discharge Plan Discharge Anticipated Discharge Date/Time: 03/03/22 08:05 Patient Disposition: Home, Self-Care Discharge Diagnosis: Appendiceal abscess, acute perforated appendicitis Referrals: No Brambila MD [Primary Care Provider] - 1 Week Srinivasan Lloyd MD [Physician] - 1 Week Discharge Medications: New cephalexin 750 mg capsule 750 mg PO TID 10 Days Qty: 30 0RF metronidazole 500 mg tablet 500 mg PO TID Qty: 30 0RF Continued rosuvastatin [Crestor] 20 mg tablet 20 mg PO DAILY Qty: 90 1RF aspirin [Adult Low Dose Aspirin] 81 mg tablet,delayed release (DR/EC) 81 mg PO DAILY Qty: 90 3RF sertraline 25 mg tablet 25 mg PO DAILY Qty: 90 1RF Rx Instructions: Takes WITH sertraline 100mg daily sertraline 100 mg tablet 100 mg PO DAILY Qty: 90 1RF albuterol sulfate 90 mcg/actuation HFA aerosol inhaler 2 puff inhalation Q4H PRN (Reason: Wheezing) lisinopril 20 mg tablet 20 mg PO DAILY Qty: 90 3RF cyanocobalamin (vitamin B-12) 1,000 mcg/mL solution 1,000 mcg IM Q4W Qty: 10 3RF gabapentin 300 mg capsule 300 mg PO BEDTIME Qty: 90 3RF (DME) BD Insulin Syringe (half unit) 0.3 mL 31 gauge x 5/16 syringe See Rx Instructions .Route Qty: 100 1RF Rx Instructions: 1 A WEEK hydroxyzine HCl 25 mg tablet 25 mg PO DAILY trazodone 50 mg tablet 50 mg PO DAILY Discharge Orders: Discharge Order (Routine); Ordered 03/03/22 Ordered By: Diego Ann Diet: Advance to usual diet Activity on Discharge: No heavy lifting Stand Alone Forms: Patient Portal Discharge page Care Plan Goals: return to normal diet and activity Health Concerns: abdominal abscess following perforated appendicitis Plan of Treatment: IR drainage, IV antibiotics, converted to po Assessment: Abdominal abscess following perforated appendicitis Discharge Date/Time: 03/03/22 10:39
== END 2022-03-03 10:39 | disposition home or self-care (01) | DRG 721 ==
LOC: HO.ED 12:33 → HO.EDOVER 12:43 → HO.S3 03-01 16:07
PROVIDERS: Admitting Provider Surgery; Emergency Provider Emergency Medicine; PCP Internal Medicine; Visit Provider Surgery
DX: T81.43XA Infection following a procedure, organ and space surgical site, initial encounter (principal); K65.1 Peritoneal abscess; I10 Essential (primary) hypertension; J44.9 Chronic obstructive pulmonary disease, unspecified; E78.5 Hyperlipidemia, unspecified; F41.9 Anxiety disorder, unspecified; Z20.822 Contact with and (suspected) exposure to COVID-19; Z87.891 Personal history of nicotine dependence; Z79.82 Long term (current) use of aspirin; Z79.899 Other long term (current) drug therapy
CPT/HCPCS: 36415; 75989; 80048; 80076; 83605; 83690; 83735; 85025; 85610; 85730; 87040; 87070; 87073; 87076; 87077; 87186; 87205; 87635; 93005; 99285; C1729; J1170; J2405; J2543; Q4186

== ENCOUNTER 2022-06-07 07:06 | Day surgery (SDC) | payer BC, SELFPAY ==
[2022-05-30 10:29] VITALS: BMI 20.7
--- NOTE | 2022-06-06 10:25 | HO.ANESPROP2 ---
Documented by User: Betzaida Keith NP 06/06/22 10:28 HPI - Anesthesia Eval Consult details Narrative: 51yo F for Upper Endoscopy and Colonoscopy s/p lap appy 02/2022 with PATRICIA NORRIS Active Problems Active Problems: All Active Problems (Updated 05/30/22 @ 10:11 by Danica Beaza, RN) Left ankle injury (Acute) Pain of left calf (Acute) Urinary tract infection (Acute) COVID-19 (Acute) Annual physical exam (Acute) Rib lesion (Acute) Prolonged QT interval (Acute) Continuous RLQ abdominal pain (Acute) Abscess, intra-abdominal, postoperative (Acute) Acute perforated appendicitis (Acute) Hyperlipidemia (Acute) Bilateral hand numbness (Acute) History of bladder suspension procedure (Acute) History of thyroidectomy (Acute) Diarrhea (Acute) Hx of hysterectomy (Acute) Eating disorder (Acute) HTN (hypertension) (Acute) COPD (chronic obstructive pulmonary disease) (Acute) Anxiety (Acute) Left ankle sprain (Acute) Past Medical History Medical History (Updated 05/30/22 @ 10:11 by Dancia Baeza RN) Abscess, intra-abdominal, postoperative Acute perforated appendicitis Anxiety Asthma Bilateral hand numbness COPD (chronic obstructive pulmonary disease) Diarrhea Eating disorder HTN (hypertension) Hyperlipidemia Left ankle sprain Pelvic abscess in female PONV (postoperative nausea and vomiting) Family History Family History Brother Substance use disorder Brother Substance use disorder Mother Mental health disorder SD (myocardial infarction), Onset Age: 64 Family history of problems with anesthesia: No Surgical History Surgical History (Updated 05/30/22 @ 08:31 by Danica Baeza RN) History of bladder suspension procedure History of laparoscopic appendectomy History of thyroidectomy Hx of hysterectomy History of Problems with Anesthesia: No Social History Social History Household Members: Spouse 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 Cognitive needs: No Hearing needs: No Vision needs: Yes Meds Allergies Allergy/AdvReac Type Severity Reaction Status Date / Time No Known Allergies Allergy Verified 05/30/22 10:12 Home Medications Medication Instructions Recorded Confirmed Last Taken Type hydroxyzine HCl 25 mg tablet 25 mg PO DAILY 02/23/21 05/30/22 02/27/22 History albuterol sulfate 90 mcg/actuation 2 puff inhalation Q4H PRN Wheezing 02/28/22 05/30/22 Unknown History aerosol inhaler Exam Exam Date and Time: June 06, 2022 1025 Height,Weight and Vital Signs: Height 5 ft 5 in Weight 56.699 kg Pertinent Lab Results Pertinent Lab Results: Laboratory Tests 03/01/22 03/01/22 06:34 06:34 WBC 5.6 Hgb 10.2 L Hct 31.4 L Plt Count 568 H Sodium 140 Potassium 4.3 Chloride 101 Carbon Dioxide 29 BUN 10 Creatinine 0.78 Narrative Narrative: EKG 02/2022 Vent. Rate : 080 BPM ? ? Atrial Rate : 080 BPM ?? P-R Int : 162 ms? QRS Dur : 082 ms ? ? QT Int : 404 ms ? ? ? P-R-T Axes : 031 035 024 degrees ?? QTc Int : 465 ms ? Normal sinus rhythm Nonspecific T wave abnormality Abnormal ECG No previous ECGs available Assessment and Plan Assessment Anesthesia Assessment: Chart Reviewed Final Anesthetic Review Family History of Problems with Anesthesia: No History of Problems with Anesthesia: No Documented by User: Ariadna Vasquez MD 06/07/22 08:21 [facility] Past Medical History Medical History (Updated 05/30/22 @ 10:11 by Danica Baeza RN) Abscess, intra-abdominal, postoperative Acute perforated appendicitis Anxiety Asthma Bilateral hand numbness COPD (chronic obstructive pulmonary disease) Diarrhea Eating disorder HTN (hypertension) Hyperlipidemia Left ankle sprain Pelvic abscess in female PONV (postoperative nausea and vomiting) Family History Family History Brother Substance use disorder Brother Substance use disorder Mother Mental health disorder SD (myocardial infarction), Onset Age: 64 Surgical History Surgical History (Updated 05/30/22 @ 08:31 by Danica Baeza RN) History of bladder suspension procedure History of laparoscopic appendectomy History of thyroidectomy Hx of hysterectomy Social History Social History Household Members: Spouse 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 Cognitive needs: No Hearing needs: No Vision needs: Yes Meds Allergies Allergy/AdvReac Type Severity Reaction Status Date / Time No Known Allergies Allergy Verified 05/30/22 10:12 Home Medications Medication Instructions Recorded Confirmed Last Taken Type hydroxyzine HCl 25 mg tablet 25 mg PO DAILY 02/23/21 05/30/22 02/27/22 History albuterol sulfate 90 mcg/actuation 2 puff inhalation Q4H PRN Wheezing 02/28/22 05/30/22 Unknown History aerosol inhaler Exam Airway Mallampati Class: II TM Dist: >3cm Neck ROM: Full Heart: rrr Lungs: cta Assessment and Plan Assessment Anesthesia Assessment: Anesthesia Plan Discussed Final Anesthetic Review NPO: Yes ASA Class: II Final Preanesthetic Review: No Changes in Pt Med Stat, Meds/Allgs Chart Reviewed, Consent Obtained/Reviewed and Anes Risks/Benef Reviewed Patient Risk: Low Procedure Risk: Low Anesthetic Plan Anesthetic Plan: MAC: Disposition: Standard PACU
[2022-06-07] VITALS (8 sets, daily range): BP systolic 104–139; BP diastolic 58–87; PULSE 62–78; RESP 16–20; TEMP 36.5–37.2; O2SAT 98–100; BMI 20.7
[2022-06-07] MEDS: Lactated Ringers 1,000 ML 100 ML IVCONT (07:50)
--- NOTE | 2022-06-07 07:50 | MHC.SHP ---
Pre-Procedural Eval Section A Date of Service: 06/07/22 The patient is an INPATIENT: No The History & Physical has been completed within 30 days and I have reviewed it.: No Section B Chief Complaint: screening, nausea, Diarrhea Relevant Family History (Specify if Yes): No Relevant Social History: Tobacco Use (former smoker) Present Medications: see Short Stay Collaborative assessment Medical History: Significant History (Bilateral hand numbness COPD (chronic obstructive pulmonary disease) Diarrhea Eating disorder HTN (hypertension) Hyperlipidemia Left ankle sprain) History of Previous Operations: Relevant previous surgery/procedure and date(s) (History of bladder suspension procedure History of thyroidectomy Hx of hysterectomy) Allergies: Allergies Allergy/AdvReac Type Severity Reaction Status Date / Time No Known Allergies Allergy Verified 05/30/22 10:12 Review of Systems Sugical H&P ROS: Negative: Constitution, Cardiovascular, Respiratory and Gastrointestinal Exam Surgical H&P Exam: Normal: Heart, Normal: Lungs, Normal: Extremities and Normal: Abdomen Plan Diagnosis/Plan: Unchanged I have reviewed the history and physical and performed a pertinent physical examination on my patient. No changes have occurred unless specified. Time Spent With Patient Time: Total time managing care of this patient today ____ minutes.
--- NOTE | 2022-06-07 07:54 | P.BOP_ITS ---
Brief Operative Note Date of Service: 06/07/22 Pre-op diagnosis: COLON CANCER SCREENING, NAUSEA, CHRONIC DIARRHEA Post-op diagnosis: other (GASTRITIS, DUODENAL NODULE, COLON POLYP, DIVERTICULOSIS, HEMORRHOIDS) Procedure: EGD WITH BIOPSIES. COLONOSCOPY TO CECUM WITH BIOPSIES AND SNARE POLYPECTOMY Surgeon: Lamont Wilkes MD Anesthesia: MAC Was an Sausage Meat Trimmer used for this Procedure?: Yes Sausage Meat Trimmer: Chastity Moya Estimated blood loss (mL): 0 Pathology: other (A. Small bowel, B. Duodenal nodule, C. Gastric antrum, D. AC polyp, E. Rt colon, F Lt colon) Condition: stable Disposition: PACU
--- NOTE | 2022-06-07 07:54 | W.PM.OPN ---
Operative Note Operative Note Date of Service: 06/07/22 Narrative: Pre-op diagnosis: COLON CANCER SCREENING, NAUSEA, CHRONIC DIARRHEA Post-op diagnosis:?other (GASTRITIS, DUODENAL NODULE, COLON POLYP, DIVERTICULOSIS, HEMORRHOIDS) Surgeon: Lamont Wilkes MD Anesthesia:?MAC FLEXIBLE TRANSORAL UPPER GASTROINTESTINAL ENDOSCOPY WITH BIOPSIES AND COLONOSCOPY TILL CECUM WITH BIOPSIES AND SNARE POLYPECTOMY UPPER ENDOSCOPY Consent: Indications for the procedure and potential complications of bleeding, perforation, reaction to medications and missed diagnosis were discussed with the patient and informed consent was obtained. Instrument: Olympus GIF H 190 mid size upper endoscope Monitoring: Vital signs and clinical assessment, continuous EKG monitoring, Pulse oximetry, Carbon Dioxide monitoring and blood pressure monitoring were done throughout the procedure. Procedure: The patient was placed in the left lateral decubitis position and pre-procedure medications were administered and a bite block was placed. The endoscope was inserted into the mouth and advanced under direct vision to the third part of duodenum. A careful inspection was made as the upper endoscope was withdrawn including a retroflexed examination of the proximal stomach; Findings and interventions are described below. Findings: Larynx: Normal Esophagus: GE junction at 35 cms. No esophagitis or Healy's. Stomach: Mild gastric erythema. Antral biopsies were obtained. Grade 2 flap valve on retroflexed examination of the cardia. Duodenum: A 1.5 cms benign appearing nodule in the apex of the bulb - biopsied. Normal descending duodenum - biopsied to check for celiac sprue. Intervention: Biopsies as noted above COLONOSCOPY PROCEDURE NOTE Consent: Indications for the procedure and potential complications of bleeding, perforation, reaction to medications and missed diagnosis were discussed with the patient and informed consent was obtained. Instrument: Olympus PCF H 190 L variable stiffness pediatric colonoscope Monitoring: Vital signs and clinical assessment, intermittent blood pressure monitoring, continuous EKG monitoring, Pulse oximetry and Carbon Dioxide monitoring were done throughout the procedure. Colon withdrawl time was 13 minutes. Procedure: The patient was placed in the left lateral decubitis position and pre-procedure medications were administered. After a digital rectal examination of the ano-rectum, the video colonoscope was inserted into the rectum and advanced through the colon to the cecum. The colonoscope was slowly withdrawn in a retrograde panoramic fashion and the colon mucosa was carefully examined including a retroflexed view of the rectum. Findings and interventions are described below. Procedure Difficulty: diverticular narrowing of the SC at 30 to 40 cms with a sharp turn which was navigated with some difficulty Findings: Terminal Ileum: Not evaluated Cecum: Normal Ascending Colon: A 7 to 8 mm sessile polyp in proximal AC - removed with a cold snare Transverse Colon: Normal Descending Colon: Moderate diverticulosis Sigmoid Colon: Severe diverticulosis with luminal narrowing Rectum: Normal Ano-rectum: Moderate internal hemorrhoids Colon preparation: Good Impression and Post Procedure Diagnosis: Endoscopy Findings: STOMACH: Antral gastritis DUODENUM: : A 1.5 cms benign appearing nodule in the apex of the bulb - biopsied. Normal descending duodenum - biopsied to check for celiac sprue. Colonoscopy Findings: One small polyp removed Random biopsies were obtained from the right and left colon to check for microscopic colitis Moderate to severe diverticulosis seen in the left colon Moderate hemorrhoids on retroflexed exam. Plan: Await pathology results Patient to schedule a FU appointment in the GI Clinic with MARKEL Díaz . Repeat Colonoscopy interval based on path results - in 5 years if polyps are adenomatous and 10 years if polyps are hyperplastic. Above findings were reviewed with the patient and colon polyps and diverticulosis handouts were given in the discharge area
[2022-06-07] MEDS: Racepinephrine HCL 0.5 ML VIAL.NEB INHALE (09:00)
--- NOTE | 2022-06-07 10:05 | PC.NURSE ---
patient aware that pacu nurse and anesthesia educated patient to use inhalers at home as ordered. cough noted in discharge. patient A+Ox3. drinking fluids well. denies difficulty breathing. states can cough like this at home, has not used inhalers recently. author spoke with rosemarie patient patternmaker helper and she stated that pt okay to be discharged home per anesthesia education regarding post procedure laryngeal spasm and care at home.
== END 2022-06-07 10:10 | disposition home or self-care (01) ==
PROVIDERS: PCP Internal Medicine; Visit Provider Internal Medicine Gastroenterology
PROC: (CPT 45385; principal; 2022-06-07 08:30)
DX: Z12.11 Encounter for screening for malignant neoplasm of colon (principal); D12.2 Benign neoplasm of ascending colon; K57.30 Diverticulosis of large intestine without perforation or abscess without bleeding; K64.8 Other hemorrhoids; K29.50 Unspecified chronic gastritis without bleeding; D13.2 Benign neoplasm of duodenum; F50.9 Eating disorder, unspecified; J44.9 Chronic obstructive pulmonary disease, unspecified; E78.5 Hyperlipidemia, unspecified; I10 Essential (primary) hypertension; Z79.82 Long term (current) use of aspirin; Z79.899 Other long term (current) drug therapy; Z87.891 Personal history of nicotine dependence
CPT/HCPCS: 45385; 45380; 43239; 88305; 88342; 94640; J1100; J2250; J2405

== ENCOUNTER 2022-08-06 14:39 | Outpatient (REF) | payer BC, SELFPAY ==
--- NOTE | ~2022-08-06 | MM_ITS ---
EXAMINATION: MM DIAGNOSTIC DIGITAL BREAST TOMOSYNTHESIS, LEFT CLINICAL INFORMATION: Short interval six-month follow-up for regional calcifications central lower outer left breast. The lifetime risk of breast cancer based on the Tyrer-Cuzick Model is 5%. COMPARISON: Mammography: 02/01/2022, 01/19/2022 (BI-RADS 0), outside mammography 09/12/2018, 09/12/2017, and 08/30/2017 ([place]) TECHNIQUE: Digital breast tomosynthesis is performed in both the craniocaudal and mediolateral oblique views along with computer-aided detection (CAD). Synthesized 2D images are generated from the tomosynthesis. Additional magnification views are obtained in the CC x2 and ML projections. FINDINGS: The breasts are heterogeneously dense, which may obscure small masses (ACR BI-RADS breast composition Category c). The parenchymal pattern is similar to prior studies and there is no interval mass or architectural abnormality or developing density. The magnification views show numerous calcifications mid lower breast 5:30-6:00, increased in number from prior diagnostic exam. The calcifications vary in size and attenuation. Stereotactic sampling is recommended. Results and recommendation are discussed with the patient at time of visit. Patient is in agreement with stereotactic sampling. Results and recommendation called to medical investigator (Laura) for Dr. Brambila on 08/06/2022. MM/MM tomosynthesis diagnostic LT IMPRESSION: Increased heterogeneous calcifications mid lower left breast. ASSESSMENT: BI-RADS 4: Suspicious RECOMMENDATION: Stereotactic biopsy left breast calcifications. This patient's information was entered into a reminder system with a target due date for their next mammogram.
== END 2022-08-06 14:40 | disposition home or self-care (01) ==
LOC: HO.MAMMO 14:39
PROVIDERS: PCP Internal Medicine; Visit Provider Internal Medicine
DX: R92.1 Mammographic calcification found on diagnostic imaging of breast (principal)
CPT/HCPCS: 77061; 77065

== ENCOUNTER 2022-08-15 09:04 | Outpatient (REF) | payer BC, SELFPAY ==
--- NOTE | ~2022-08-15 | MM_ITS ---
EXAMINATION: STEREOTACTIC TOMOSYNTHESIS-GUIDED VACUUM-ASSISTED BREAST BIOPSY, LEFT SPECIMEN RADIOGRAPH, LEFT POST PROCEDURE DIGITAL MAMMOGRAM, LEFT CLINICAL INFORMATION: Increased heterogeneous calcifications mid lower left breast for tissue sampling. TC score 5%. COMPARISON: Prior mammography exams, most recent 08/06/2022. TECHNIQUE/PROCEDURE: Informed consent was obtained from the patient after discussion of the benefits, risks, and alternatives to biopsy today. Patient appeared to understand. Gave opportunity for questions. Patient signed consent form. BIOPSY TABLE: [employer] Affirm Prone Biopsy System. LESION: Calcifications mid lower left breast. LOCAL ANESTHESIA: 10 mL carbonated 1% lidocaine; 10 mL 2% lidocaine with epinephrine. DERMATOTOMY: Single skin andrew dermatotomy performed. NEEDLE: [employer] Eviva 9-gauge vacuum assisted core biopsy device. APPROACH: Lateral Medial. TARGETING: Combination of digital breast tomosynthesis and stereotactic digital mammography used for targeting. CORES: 9. CLIP: [employer] SecurMark Cylinder-shaped marker. SPECIMEN RADIOGRAPH: Specimen radiograph is taken in separate room using digital mammography. There are numerous calcifications in the excised cores, over 35 in number. POST PROCEDURE UNILATERAL DIGITAL MAMMOGRAM: The post biopsy mammogram is performed in separate room using separate digital mammography equipment from the biopsy procedure. CC and ML views are obtained. The breasts are heterogeneously dense, which may obscure small masses (breast composition category: c). The clip marker is in position. The calcifications are decreased at the biopsy site. No gross hematoma. The patient tolerated the procedure well. No immediate complications. Home instructions reviewed with the patient. Final pathology results are pending. MM/MM stereotactic biopsy LT IMPRESSION: 1. Digital tomosynthesis-guided core biopsy left breast with clip placement. 2. Specimen radiograph taken and post procedure mammogram. There is satisfactory positioning of the biopsy clip. 3. Final pathology results pending. An addendum report will be issued.
[2022-08-15] MEDS: Lidocaine HCl 1 % 20 ML VIAL 10 ML SUBCUT (11:33)
[2022-08-15] MEDS: Sodium Bicarbonate 8.4% 50 MEQ/50 ML VIAL SUBCUT (11:37)
== END 2022-08-15 09:05 | disposition home or self-care (01) ==
LOC: HO.MAMMO 09:04
PROVIDERS: PCP Internal Medicine; Visit Provider Surgery
DX: R92.0 Mammographic microcalcification found on diagnostic imaging of breast (principal); Z79.899 Other long term (current) drug therapy
CPT/HCPCS: 19081; 88305; A4648

== ENCOUNTER → 2022-08-22 14:17 | Outpatient (BNVA) | payer BC, SELFPAY | PROVIDERS: PCP Internal Medicine; Visit Provider Surgery | DX: R92.1 Mammographic calcification found on diagnostic imaging of breast (principal) ==

== ENCOUNTER 2022-09-07 12:06 | Outpatient (REF) | payer BC, SELFPAY ==
[2022-09-07 16:52] LABS: Influenza A PCR NEGATIVE (Negative); Influenza B PCR NEGATIVE (Negative); Resp Syncy Virus RNA Qual PCR NEGATIVE (Negative); SARS COV2 PCR INHOUSE NEGATIVE (Negative)
== END 2022-09-07 12:07 | disposition home or self-care (01) ==
LOC: HO.LAB 12:06
PROVIDERS: Visit Provider Nurse Practitioner Acute Care
DX: Z20.822 Contact with and (suspected) exposure to COVID-19 (principal); R68.89 Other general symptoms and signs
CPT/HCPCS: 0241U

== ENCOUNTER 2022-09-07 12:49 | Outpatient (REF) | payer BC, SELFPAY ==
--- NOTE | ~2022-09-07 | XR_ITS ---
EXAMINATION: XR CHEST CLINICAL INFORMATION: Question respiratory disorder COMPARISON: None available. TECHNIQUE: 2 views of the chest were obtained. FINDINGS: No significant abnormality is noted involving the heart, lungs, mediastinum, bony thorax or soft tissues. XR/XR chest 2V IMPRESSION: Unremarkable examination.
== END 2022-09-07 12:50 | disposition home or self-care (01) ==
LOC: HO.HMGCX 12:49
PROVIDERS: Visit Provider Nurse Practitioner Acute Care
DX: Z13.83 Encounter for screening for respiratory disorder NEC (principal)
CPT/HCPCS: 71046

== ENCOUNTER 2023-01-03 07:40 | Outpatient (AMB) | payer BC, SELFPAY ==
[2023-01-03 07:55] VITALS: BP 132/80; PULSE 88; O2SAT 99
--- NOTE | 2023-01-03 07:55 | A.OFFPC_ITS ---
Vital Signs 01/03/23 07:55 Height 5 ft 5 in BMI Reason not done Patient refused/unable BP 132/80 Blood Pressure Location Lt brachial Position Sitting Pulse 88 Pulse Source Pulse Oximeter Pulse Oximetry (%) 99 Oxygen Delivery Method Room Air Intake Visit Reasons: LT Hip Pain/Concern Intake Note: Pt is here today for a sick visit. Pt c/o L hip pain for about 6 months. Allergies No Known Allergies Allergy (Verified 01/03/23 07:57) Medication List - Last Reconciled 01/03/23 by No Brambila MD albuterol sulfate 90 mcg/actuation 2 puffs inhalation Q6H PRN albuterol sulfate 90 mcg/actuation 2 puffs inhalation Q4H PRN aspirin (Adult Low Dose Aspirin) 81 mg PO DAILY cyanocobalamin (vitamin B-12) 1,000 mcg IM Q4W gabapentin 300 mg PO BEDTIME hydroxyzine HCl 25 mg PO DAILY insulin syr/ndl U100 half anthony (BD Insulin Syringe Ultra-Fine (half unit)) 1 A WEEK lisinopril 20 mg PO DAILY rosuvastatin (Crestor) 20 mg PO DAILY sertraline 25 mg PO DAILY sertraline 100 mg PO DAILY trazodone 50 mg PO DAILY Tobacco use date assessed: 01/03/23 Dental Screening Dental Screen Date: 01/03/23 Did you have a dental visit in the last 12 months?: Yes Did you have a dental problem in the last 6 months where you did not have access to dental care?: No Was dental information given to patient?: Patient has dentist HPI LT Hip Pain/Concern HPI Details Pt c/o L lateral thigh pain for 6 months, worse when getting up from sitting position or turning to the left side in bed. 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 She fell down for about 4 years ago but did have any pain until recently. Patient reports being under a lot of stress and has restarted counseling a few weeks ago. She has an appointment with psychiatrist next month because she feels sertraline and has not been relieving her symptoms for many years and would like to change the medication. Patient has been taking li sinopril for hypertension but has not been complying with Crestor. [facility] Medical History Abscess, intra-abdominal, postoperative Acute perforated appendicitis Anxiety Asthma Bilateral hand numbness Breast calcification, left COPD (chronic obstructive pulmonary disease) Diarrhea Eating disorder HTN (hypertension) Hyperlipidemia Left ankle sprain Pelvic abscess in female PONV (postoperative nausea and vomiting) Surgical History History of bladder suspension procedure History of laparoscopic appendectomy History of thyroidectomy Hx of hysterectomy Family History Brother Substance use disorder Brother Substance use disorder Mother Mental health disorder [place] (myocardial infarction), Onset Age: 64 Social History Household Members: Spouse 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:: , 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, 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 Housing: House Are you a primary restorative care technician to a significant other at home: No Do you presently have visiting nurse or other home services: No Alcohol intake: never Patient Tobacco Use Status: Former Tobacco user Quit Date: ~ 8 yrs ago Tobacco use type: Cigarette e-Cigarette/Vaping Use: Never Used Advance Directives Date on File: 02/12/22 service: No Current occupational status: employed 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 How often do you have a drink containing alcohol?: 2-4 times a month 2. How many drinks containing alcohol do you have on a typical day when you are drinking?: 1 or 2 3. How often do you have six or more drinks on one occasion?: Never Total Score: 2 JEB-7 AMB Questionnaire JEB-7 Date JEB - 7 assessed: 09/21/21 Source: Developed by Drs. Mello Arshad, Katy Ernst, Garth Carney and colleagues, with an educational robbie from [employer]. Review of Systems Const All systems reviewed & are unremarkable except as noted in HPI and below Reports no additional complaints Eyes Reports no additional complaints ENT Reports no additional complaints Card Reports no additional complaints Resp Reports no additional complaints GI Reports no additional complaints Reports no additional complaints Physical exam (Primary Care) Vital Signs: Last Vital Signs Pulse 88 01/03/23 07:55 BP 132/80 01/03/23 07:55 Pulse Ox 99 01/03/23 07:55 Oxygen Delivery Method Room Air 01/03/23 07:55 Tobacco/Smoking Status: Tobacco use Status Tobacco use date assessed 01/03/23 01/03/23 07:58 Patient Tobacco Use Status Former Tobacco user 01/03/23 07:58 Tobacco use type Cigarette 01/03/23 07:58 e-Cigarette/Vaping Use Never Used 01/03/23 07:58 Thrive Assessment: Date of Thrive Assessment Date Thrive assessed 09/21/21 01/03/23 07:58 Const General: no acute distress Resp Effort & Inspection: normal respiratory effort Auscultation: clear to auscultation bilaterally Cardio Rhythm: regular rhythm Heart sounds: S1 normal heart sound present and S2 normal heart sound present Extrem Other: reducible tenderness in the left greater trochanteric area, slightly decreased range of motion in the left hip, leg rising 90 degrees b/l Assessment and Plan Assessment & Plan (1) Annual physical exam: Code(s): Z00.00 - Encounter for general adult medical examination without abnormal findings Plan: Patient will schedule physical and will have fasting blood work today (2) Trochanteric bursitis of left hip: Code(s): M70.62 - Trochanteric bursitis, left hip Plan: Meloxicam for 10 days is prescribed,x-ray will be obtained and patient is referred to physical therapy and orthopedic surgeon (3) HTN (hypertension): Code(s): I10 - Essential (primary) hypertension Plan: Continue lisinopril (4) PTSD (post-traumatic stress disorder): Code(s): F43.10 - Post-traumatic stress disorder, unspecified Plan: Continue current medications and follow-up with a counselor and Psychiatry Orders: Orders Comprehensive [place]. Panel Fast Today M70.62 - Trochanteric bursitis, left hip, Z00.00 - Encounter for general adult medical examination without abnormal findings Lipid Panel Today M70.62 - Trochanteric bursitis, left hip, Z00.00 - Encounter for general adult medical examination without abnormal findings TSH reflex Free T4 Today M70.62 - Trochanteric bursitis, left hip, Z00.00 - Encounter for general adult medical examination without abnormal findings Vitamin D 25-OH Total Today M70.62 - Trochanteric bursitis, left hip, Z00.00 - Encounter for general adult medical examination without abnormal findings Complete Blood Count Auto Diff Today M70.62 - Trochanteric bursitis, left hip, Z00.00 - Encounter for general adult medical examination without abnormal findings XR hip LT w PEL1V Today M70.62 - Trochanteric bursitis, left hip PT Evaluation and Treatment Today M70.62 - Trochanteric bursitis, left hip Referrals Orthopedics Referral M70.62 - Trochanteric bursitis, left hip Medications: New meloxicam 15 mg PO DAILY 10 tabs 0RF Coding Level of Care Code Est Pt Level 4 (65771) Diagnoses Annual physical exam Z00.00 Trochanteric bursitis of left hip M70.62 HTN (hypertension) I10 PTSD (post-traumatic stress disorder) F43.10
== END 2023-01-03 08:59 | disposition home or self-care (01) ==
PROVIDERS: PCP Internal Medicine; Visit Provider Internal Medicine
DX: M70.62 Trochanteric bursitis, left hip (principal); I10 Essential (primary) hypertension; F43.10 Post-traumatic stress disorder, unspecified
CPT/HCPCS: 99214

== ENCOUNTER 2023-01-03 08:25 | Outpatient (REF) | payer BC, SELFPAY ==
--- NOTE | ~2023-01-03 | XR_ITS ---
EXAMINATION: XR HIP, LEFT WITH AP PELVIS CLINICAL INFORMATION: Trochanteric bursitis. COMPARISON: CT abdomen and pelvis dated 02/28/2022. TECHNIQUE: AP and frog-leg lateral views of the left hip. FINDINGS: No fracture. Alignment is anatomic. The bilateral acetabular joint spaces are well-maintained. The femoral heads are smooth. The sacroiliac joints are symmetric and well-maintained. The pubic symphysis is intact. Soft tissues are unremarkable. Within the left pelvis, an anastomotic staple line is seen. There are pelvic phleboliths. XR/XR hip LT w PEL1V IMPRESSION: No unusual degenerative changes are seen of the hips or sacroiliac joints. No fracture or dislocation is seen.
[2023-01-03 11:22] LABS: MANUAL DIFF FLAG NO
[2023-01-03 11:31] LABS: Basophils Percent Auto 0.7 % (0-2); Eosinophils Absolute Auto 0.1 X10*3/uL (0.0-0.4); Eosinophils Percent Auto 0.9 % (0-4); Hematocrit 40.3 % (37.0-47.0); Hemoglobin 13.3 g/dl (12.0-16.0); Imm Gran Abs Auto 0.02 X10*3/uL (0.00-0.03); Imm Gran Pct Auto 0.4 % (0.0-0.4); Lymphocytes Absolute Auto 1.5 X10*3/uL (1.2-4.9); Lymphocytes Percent Auto 28.1 % (20-40); Mean Corpuscular Hemoglobin 31.4 pg (27.0-33.0); Mean Platelet Volume 9.4 fL (9.4-12.3); Monocytes Absolute Auto 0.4 X10*3/uL (0.1-1.2); Monocytes Percent Auto 6.7 % (2-11); Neutrophils Absolute Auto 3.4 x10*3/uL (2.0-8.3); Neutrophils Percent Auto 63.2 % (45-73); Platelet Count 302 X10*3/uL (160-400); Red Blood Count 4.24 X10*6/uL (4.20-5.50); White Blood Count 5.4 X10*3/uL (4.8-10.8)
[2023-01-03 12:27] LABS: Alanine Aminotransferase 18 U/L (0-31); Albumin Level 4.6 g/dL (3.5-5.0); Alkaline Phosphatase 92 U/L (39-117); Anion Gap 11 (12-20); Aspartate Amino Transferase 25 U/L (5-31); Bilirubin Total 0.3 mg/dL (0.0-1.0); Blood Urea Nitrogen 25 mg/dL (9-16); Calcium 9.7 mg/dL (8.4-10.2); Carbon Dioxide 28 mmol/L (22-29); Chloride 106 mmol/L (96-108); Cholesterol 240 mg/dL (<200); Estimated Glomerular Filt Rate > 60; Glucose Fasting 102 mg/dL (60-99); HDL Cholesterol 58 mg/dL (>40); LDL Cholesterol Calculated 140 mg/dL (<100); Potassium 4.3 mmol/L (3.3-5.1); Sodium 141 mmol/L (135-145); Total Protein 8.1 g/dL (6.5-8.0); Triglycerides 212 mg/dL (<150)
[2023-01-03 12:29] LABS: TSH reflex Free T4 1.95 uIU/mL (0.32-4.0); Vitamin D 25-OH Total 26.3 ng/mL (>30)
== END 2023-01-03 08:26 | disposition home or self-care (01) ==
LOC: HO.HMGCX 08:25
PROVIDERS: PCP Internal Medicine; Visit Provider Internal Medicine
DX: Z00.00 Encounter for general adult medical examination without abnormal findings (principal); M70.62 Trochanteric bursitis, left hip; Z20.2 Contact with and (suspected) exposure to infections with a predominantly sexual mode of transmission
CPT/HCPCS: 36415; 73502; 80053; 80061; 82306; 84443; 85025

== ENCOUNTER 2023-01-24 09:54 | Outpatient (REF) | payer BC, SELFPAY ==
--- NOTE | ~2023-01-24 | MM_ITS ---
EXAMINATION: MM DIAGNOSTIC DIGITAL BREAST TOMOSYNTHESIS, BILATERAL CLINICAL INFORMATION: 6 month follow-up benign left stereotactic biopsy. COMPARISON: Mammography: Stereotactic biopsy 08/15/2022, mammography 08/06/2022, 01/19/2022, and 09/12/2018. TECHNIQUE: Digital breast tomosynthesis is performed in both the craniocaudal and mediolateral oblique views along with computer-aided detection (CAD). Synthesized 2D images are generated from the tomosynthesis. FINDINGS: The breasts are heterogeneously dense, which may obscure small masses (ACR BI-RADS breast composition Category c). Post benign biopsy clip in the left breast 6:00 axis. There are a few remaining punctate scattered calcifications surrounding the biopsy site, likely adenosis or apocrine metaplasia. There are round and oval circumscribed masses in both breasts, consistent with waxing and waning cysts. No suspicious findings identified. MM/MM tomosynthesis diagnostic BI IMPRESSION: There are no significant changes from the prior study. No mammographic findings of malignancy. Stable post biopsy changes 6:00 left breast. A few surrounding punctate calcifications are unchanged. Waxing and waning cysts present in both breasts. ASSESSMENT: BI-RADS BI-RADS 2 - Benign Findings RECOMMENDATION: 1 year F/U Results were provided to the patient at time of visit by the technologist. This patient's information was entered into a reminder system with a target due date for their next mammogram.
[2023-01-24 13:48] LABS: Hematocrit 39.5 % (37.0-47.0); Hemoglobin 12.9 g/dl (12.0-16.0); Mean Corpuscular HGB Conc 32.7 g/dl (31.0-35.0); Mean Corpuscular Hemoglobin 31.5 pg (27.0-33.0); Mean Corpuscular Volume 96.3 fL (80.0-98.0); Mean Platelet Volume 9.6 fL (9.4-12.3); Platelet Count 301 X10*3/uL (160-400); Red Cell Distribution Width 12.7 % (11.0-16.0); White Blood Count 4.4 X10*3/uL (4.8-10.8)
[2023-01-24 14:42] LABS: Folate 9.5 ng/mL (> or = 4.0); Vitamin B12 530 pg/mL (200-900)
[2023-01-24 15:31] LABS: Alanine Aminotransferase 19 U/L (0-31); Albumin Level 4.5 g/dL (3.5-5.0); Alkaline Phosphatase 84 U/L (39-117); Anion Gap 13 (12-20); Aspartate Amino Transferase 25 U/L (5-31); Bilirubin Total 0.4 mg/dL (0.0-1.0); Blood Urea Nitrogen 18 mg/dL (9-16); Calcium 9.3 mg/dL (8.4-10.2); Carbon Dioxide 28 mmol/L (22-29); Chloride 104 mmol/L (96-108); Cholesterol 188 mg/dL (<200); Estimated Glomerular Filt Rate > 60; Glucose Fasting 96 mg/dL (60-99); HDL Cholesterol 60 mg/dL (>40); LDL Cholesterol Calculated 95 mg/dL (<100); Potassium 4.6 mmol/L (3.3-5.1); Sodium 140 mmol/L (135-145); Total Protein 7.6 g/dL (6.5-8.0); Triglycerides 168 mg/dL (<150)
[2023-01-24 15:37] LABS: Vitamin D 25-OH Total 34.7 ng/mL (>30)
== END 2023-01-24 09:55 | disposition home or self-care (01) ==
LOC: HO.MAMMO 09:54
PROVIDERS: PCP Internal Medicine; Visit Provider Internal Medicine
DX: Z00.00 Encounter for general adult medical examination without abnormal findings (principal); E78.5 Hyperlipidemia, unspecified; I10 Essential (primary) hypertension; R92.1 Mammographic calcification found on diagnostic imaging of breast
CPT/HCPCS: 36415; 77062; 77066; 80048; 80053; 80061; 82306; 82607; 82746; 85027

== ENCOUNTER → 2023-01-24 11:00 | Outpatient (BNV) | payer BC, SELFPAY | PROVIDERS: PCP Internal Medicine; Visit Provider Radiology Diagnostic Radiology | DX: R92.1 Mammographic calcification found on diagnostic imaging of breast (principal) | CPT/HCPCS: 77062; 77066 ==

== ENCOUNTER 2023-05-26 12:22 | Outpatient (AMB) | payer BC, SELFPAY ==
[2023-05-26 13:11] VITALS: BP 150/94; PULSE 84; O2SAT 99
--- NOTE | 2023-05-26 13:11 | MHC.PC.OV ---
Vital Signs 05/26/23 13:11 Height 5 ft 5 in BMI Reason not done Patient refused/unable BP 150/94 H Blood Pressure Location Lt brachial Position Sitting Pulse 84 Pulse Source Pulse Oximeter Pulse Oximetry (%) 99 Oxygen Delivery Method Room Air Intake Visit Reasons: Followup BP Intake Note: Pt is here today for a follow up on BP. Allergies No Known Allergies Allergy (Verified 05/26/23 13:15) Medication List - Last Reconciled 05/26/23 by No Brambila MD albuterol sulfate 90 mcg/actuation 2 puffs inhalation Q6H PRN albuterol sulfate 90 mcg/actuation 2 puffs inhalation Q4H PRN aspirin (Adult Low Dose Aspirin) 81 mg PO DAILY cyanocobalamin (vitamin B-12) 1,000 mcg IM Q4W gabapentin 300 mg PO BEDTIME hydroxyzine HCl 25 mg PO DAILY PRN insulin syr/ndl U100 half anthony (BD Insulin Syringe Ultra-Fine (half unit)) 1 A WEEK lisinopril 40 mg PO DAILY rosuvastatin (Crestor) 20 mg PO DAILY trazodone 50 mg PO DAILY venlafaxine ER (Effexor XR) 150 mg (4 x 37.5 mg) PO BEDTIME Tobacco use date assessed: 05/26/23 Dental Screening Dental Screen Date: 05/26/23 Did you have a dental visit in the last 12 months?: Yes Did you have a dental problem in the last 6 months where you did not have access to dental care?: No Was dental information given to patient?: Patient has dentist HPI Followup BP HPI Details Patient presents for the follow-up on hypertension. Patient complains of increased blood pressure for the last month occasionally feeling palpitations in her chest. Patient started taking Effexor for depression and anxiety 2 months ago and is feeling better. Patient follows up with a counselor. She denies exercise induced palpitations chest pain or shortness of breath. [facility] Medical History Breast calcification, left PONV (postoperative nausea and vomiting) Abscess, intra-abdominal, postoperative Pelvic abscess in female Acute perforated appendicitis Asthma Hyperlipidemia Bilateral hand numbness Diarrhea Eating disorder HTN (hypertension) COPD (chronic obstructive pulmonary disease) Anxiety Left ankle sprain Surgical History History of laparoscopic appendectomy History of bladder suspension procedure History of thyroidectomy Hx of hysterectomy Family History Brother Substance use disorder Brother Substance use disorder Mother Mental health disorder [place] (myocardial infarction), Onset Age: 64 Social History Household Members: Spouse 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:: , 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, 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 Housing: House Are you a primary medicare sales executive to a significant other at home: No Do you presently have visiting nurse or other home services: No Alcohol intake: never Patient Tobacco Use Status: Former Tobacco user Quit Date: ~ 8 yrs ago Tobacco use type: Cigarette e-Cigarette/Vaping Use: Never Used Advance Directives Date on File: 02/12/22 service: No Current occupational status: employed 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 How often do you have a drink containing alcohol?: 2-3 times a week 2. How many drinks containing alcohol do you have on a typical day when you are drinking?: 1 or 2 3. How often do you have six or more drinks on one occasion?: Never Total Score: 3 JEB-7 AMB Questionnaire JEB-7 Date JEB - 7 assessed: 05/26/23 Feeling nervous, anxious, or on edge: 3 = Nearly every day Not being able to stop or control worryin = Nearly every day Worrying too much about different things: 3 = Nearly every day Trouble relaxin = Nearly every day Being so restless that it is hard to sit still: 3 = Nearly every day Becoming easily annoyed or irritable: 3 = Nearly every day Feeling afraid as if something awful might happen: 0 = Not at all Total JEB-7 score (0-4 normal; 5-9 mild; 10-14 moderate; 15-21 severe): 18 Source: Developed by Drs. Mello Arshad, Katy Ernst, Garth Carney and colleagues, with an educational robbie from [employer]. Review of Systems Const All systems reviewed & are unremarkable except as noted in HPI and below Reports no additional complaints Eyes Reports no additional complaints ENT Reports no additional complaints Card Reports no additional complaints Resp Reports no additional complaints GI Reports no additional complaints Reports no additional complaints Physical exam (Primary Care) Vital Signs: Last Vital Signs Pulse 84 05/26/23 13:11 BP 150/94 H 05/26/23 13:11 Pulse Ox 99 05/26/23 13:11 Oxygen Delivery Method Room Air 05/26/23 13:11 Tobacco/Smoking Status: Tobacco use Status Tobacco use date assessed 05/26/23 05/26/23 13:18 Patient Tobacco Use Status Former Tobacco user 05/26/23 13:12 Tobacco use type Cigarette 05/26/23 13:12 e-Cigarette/Vaping Use Never Used 05/26/23 13:12 Thrive Assessment: Date of Thrive Assessment Date Thrive assessed 09/21/21 05/26/23 13:12 Const General: no acute distress HENMT Head: Yes normal to inspection Ears: hearing grossly normal bilaterally General nose exam: Normal external nose present Face and sinus: Yes normal facial exam Throat: Yes posterior oropharynx normal Eyes General: appearance normal, both eyes and all related structures Neck Neck: Yes no lymphadenopathy and Yes supple Resp Effort & Inspection: normal respiratory effort Auscultation: clear to auscultation bilaterally Cardio Rhythm: regular rhythm Heart sounds: S1 normal heart sound present and S2 normal heart sound present GI Inspection: Yes normal to inspection Palpation (GI): Soft to palpation Percussion: Yes normal to percussion Auscultation: normal bowel sounds Assessment and Plan Assessment & Plan (1) HTN (hypertension): Code(s): I10 - Essential (primary) hypertension Plan: EKG showed NSR, T wave inversion V3-V5, unchanged comparing to February 2022. Check Echo and add Amlodipine 5 mg to Lisinopril, f/u 1 month (2) PTSD (post-traumatic stress disorder): Comment: f/u with Psychiatry Code(s): F43.10 - Post-traumatic stress disorder, unspecified Plan: Patient follows up with psychiatrist she is aware that Effexor could increase her blood pressure Orders: Orders CA echo transthoracic complete Today I10 - Essential (primary) hypertension Medications: New venlafaxine ER (Effexor XR) 75 mg (2 x 37.5 mg) PO BEDTIME 180 caps 0RF amlodipine 5 mg PO DAILY 90 tabs 0RF Changed From lisinopril 20 mg PO DAILY 90 tabs 3RF To lisinopril 40 mg PO DAILY Coding Level of Care Code Est Pt Level 3 (92926) Diagnoses HTN (hypertension) I10 PTSD (post-traumatic stress disorder) F43.10
== END 2023-05-26 14:13 | disposition home or self-care (01) ==
PROVIDERS: PCP Internal Medicine; Visit Provider Internal Medicine
DX: I10 Essential (primary) hypertension (principal); F43.10 Post-traumatic stress disorder, unspecified
CPT/HCPCS: 99213

== ENCOUNTER → 2023-06-19 07:42 | Outpatient (REF) | payer BC, SELFPAY ==
--- NOTE | 2023-06-19 07:58 | CA_ITS ---
Transthoracic Echocardiogram Patient (Last, First, Middle): Demetria Soto, Gender: Female Date of : 1970 Age: 52 Procedure Date: 06/19/2023 Procedure Type: Transthoracic Echocardiogram Location: OP Height: 165.1 cm Weight: 54.43 kg BSA: 1.59 m2 Heart Rate: bpm BP: 144 / 98 mmHg Business Asst: TO Referring MD: No Brambila MD Symptoms: I10 - Essential (primary) hypertension Study Quality: Fair/Contrast ECG Rhythm: Sinus Conclusions: - The left ventricular systolic function is low normal. The calculated ejection fraction is 53% by biplane method. - No obvious valvular pathology seen on this study. Findings Procedure Information Contrast agent, definity, is being given per protocol with complications as noted. The patient experienced back pain from contrast. Left Ventricle Normal left ventricular cavity size. There is normal left ventricular wall thickness. The left ventricular systolic function is low normal. The calculated ejection fraction is 53% by biplane method. There is no evidence of regional wall motion abnormalities. Diastolic function is normal for age. Right Ventricle Normal right ventricular cavity size. There is low normal right ventricular systolic function. Atria Both atria are normal in size. Aortic Valve There is a normal trileaflet aortic valve. There is no aortic valve stenosis. There is no aortic valve regurgitation. Mitral Valve The mitral valve appears normal. There is no mitral valve regurgitation. There is no mitral valve stenosis. Pulmonic Valve The pulmonic valve is likely normal. Tricuspid Valve Normal tricuspid valve structure. There is trace tricuspid valve regurgitation. There is no evidence of pulmonary hypertension. Great Vessels The asc aorta is normal in size. Venous The inferior vena cava is normal in size and collapses greater than 50% with inspiration. Pericardium/Pleural There is no evidence of pericardial effusion. Prior Study Comparison No prior study available for comparison. Recommendations, Care & Conclusions No obvious valvular pathology seen on this study. Measurements 2D Linear Measurements IVSd: 0.97 0.6-0.9/0.6-1.0 cm LVIDd: 4.67 3.9-5.3/4.2-5.9 cm LVIDd Index: 2.94 2.4-3.2/2.2-3.1 cm/m2 LVIDs: 3.47 2.0-3.6 cm LVPWd: 0.95 0.7-1.1 cm LV Mass: 191.45 67-162/88-224 g LV Mass Index: 120.41 43-95/49-115 g/m2 LVOT Diam: 2.10 3.0+(-)1.3 cm 2D Systolic Function EF 4C: 55.90 >55% EF 2C: 52.00 >55% EF BiP: 53.10 >55% Mitral Valve MV Pk E: 0.52 MV PK A: 0.69 MV Decel Time: 151.00 E/A: 0.80 E'Lateral: 8.70 E'Medial: 6.20 E/E' Med: 8.40 E/E' Lat: 6.00 PHT: 44.00 MVA PHT: 5.00 Decel [place]: 3.47 Aortic Valve AoV Pk Calvin: 1.18 AoV Mn Calvin: 0.90 AoV VTI: 0.26 AoV Pk Grad: 6.00 Aov Mn Grad: 4.00 CHICHO Cont.VTI: 2.45 LVOT LVOT Pk Calvin: 0.89 LVOT Mn Calvin: 0.58 LVOT VTI: 0.19 LVOT Pk Grad: 3.00 LVOT Mn Grad: 2.00 LVOT Diam: 2.10 LVOT Area: 3.46 Diastolic Function MV Pk E: 0.52 MV Pk A: 0.69 E/A: 0.80 E'Medial: 6.20 E/E' Med: 8.40 E' Laterial: 8.70 E/E' Lat: 6.00 Right Ventricle TAPSE (mm): 20.00 TVS' Calvin: 9.68 Tricuspid Valve RA Press: 3.00 Great Vessels Aorta Sinus of Valsalva: 3.54 2.0-3.[address] [place]: 2.58 1.7-3.4 cm Ao Asc: 3.10 2.1-3.4 cm Updated in Other Vendor System with Status of Final Gallito Kang MD electronically signed on 06/21/2023 9:16:47 AM with status of Final
== END ==
LOC: HO.CARD 07:42
PROVIDERS: PCP Internal Medicine; Visit Provider Internal Medicine
DX: I10 Essential (primary) hypertension (principal)
CPT/HCPCS: 93306; Q9957

== ENCOUNTER → 2023-06-19 07:58 | Outpatient (BNV) | payer BC, SELFPAY | PROVIDERS: PCP Internal Medicine; Visit Provider Internal Medicine | DX: I10 Essential (primary) hypertension (principal) | CPT/HCPCS: 93306 ==

== ENCOUNTER 2023-11-19 13:47 | Outpatient (AMB) | payer BC, SELFPAY ==
[2023-11-19 13:49] VITALS: BP 132/92; PULSE 80; O2SAT 98
--- NOTE | 2023-11-19 13:49 | A.OFFPC_ITS ---
Vital Signs 11/19/23 13:49 Height 5 ft 5 in BMI Reason not done Patient refused/unable BP 132/92 H Blood Pressure Location Rt brachial Position Sitting Pulse 80 Pulse Source Pulse Oximeter Pulse Oximetry (%) 98 Oxygen Delivery Method Room Air Intake Visit Reasons: Dizziness Intake Note: Pt is here today for a sick visit. Pt c/o dizzy spells for about 2 months. Allergies perflutren Adverse Reaction (Verified 11/19/23 13:52) Back Pain Medication List - Last Reconciled 11/19/23 by No Brambila MD albuterol sulfate 90 mcg/actuation 2 puffs inhalation Q6H PRN albuterol sulfate 90 mcg/actuation 2 puffs inhalation Q4H PRN amlodipine-benazepril 5-40 mg 1 cap PO DAILY aspirin 81 mg PO DAILY cyanocobalamin (vitamin B-12) 1,000 mcg IM Q4W gabapentin 300 mg PO BEDTIME insulin syr/ndl U100 half anthony (BD Insulin Syringe Ultra-Fine (half unit)) 1 A WEEK meclizine 25 mg PO BID PRN rosuvastatin 20 mg PO DAILY trazodone 50 mg PO DAILY venlafaxine ER (Effexor XR) 75 mg (2 x 37.5 mg) PO BEDTIME Tobacco use date assessed: 11/19/23 Dental Screening Dental Screen Date: 05/26/23 HPI Dizziness HPI Details Pt c/o dizziness, feeling off balance and holding on to objects to prevent a fall almost daily for 2 months. Pt denies nausea vomiting diplopia weakness or numbness in extremities. She has been taking amlodipine and lisinopril for hypertension but not consistently. Chronic anxiety and depression are stable on Effexor and patient follows up with a counselor. [facility] Medical History Breast calcification, left PONV (postoperative nausea and vomiting) Abscess, intra-abdominal, postoperative Pelvic abscess in female Acute perforated appendicitis Asthma Hyperlipidemia Bilateral hand numbness Diarrhea Eating disorder HTN (hypertension) COPD (chronic obstructive pulmonary disease) Anxiety Left ankle sprain Surgical History History of laparoscopic appendectomy History of bladder suspension procedure History of thyroidectomy Hx of hysterectomy Family History Brother Substance use disorder Brother Substance use disorder Mother Mental health disorder [place] (myocardial infarction), Onset Age: 64 Social History Household Members: Spouse 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:: , 3 children, 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 Housing: House Are you a primary nurse behavioral health care to a significant other at home: No Do you presently have visiting nurse or other home services: No Alcohol intake: never Patient Tobacco Use Status: Former Tobacco user Tobacco use type: Cigarette e-Cigarette/Vaping Use: Never Used Advance Directives Date on File: 02/12/22 service: No Current occupational status: employed 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 Mello Arshad, Katy Ernst, Garth Carney and colleagues, with an educational robbie from [employer]. Review of Systems Const All systems reviewed & are unremarkable except as noted in HPI and below Eyes Reports no additional complaints ENT Reports no additional complaints Card Reports no additional complaints Resp Reports no additional complaints GI Reports no additional complaints Physical exam (Primary Care) Vital Signs: Last Vital Signs Pulse 80 11/19/23 13:49 BP 132/92 H 11/19/23 13:49 Pulse Ox 98 11/19/23 13:49 Oxygen Delivery Method Room Air 11/19/23 13:49 Tobacco/Smoking Status: Tobacco use Status Tobacco use date assessed 11/19/23 11/19/23 13:54 Patient Tobacco Use Status Former Tobacco user 11/19/23 13:54 Tobacco use type Cigarette 11/19/23 13:54 e-Cigarette/Vaping Use Never Used 11/19/23 13:54 Thrive Assessment: Date of Thrive Assessment Date Thrive assessed 09/21/21 11/19/23 13:54 Const General: no acute distress HENMT Head: Yes normal to inspection Ears: hearing grossly normal bilaterally and TM's normal bilaterally Face and sinus: Yes normal facial exam Eyes General: appearance normal, both eyes and all related structures Neck Neck: Yes no lymphadenopathy and Yes supple Resp Effort & Inspection: normal respiratory effort Auscultation: clear to auscultation bilaterally Cardio Rhythm: regular rhythm Heart sounds: S1 normal heart sound present and S2 normal heart sound present GI Inspection: Yes normal to inspection Palpation (GI): Soft to palpation Percussion: Yes normal to percussion Auscultation: normal bowel sounds Neuro General: CN's II-XI intact bilaterally Gait exam (Neuro): Wide-based gait present Motor exam (neuro): 5/5 motor strength present throughout Romberg Test: Positive Assessment and Plan Assessment & Plan (1) HTN (hypertension): Code(s): I10 - Essential (primary) hypertension Plan: Change amlodipine and lisinopril to amlodipine with benazepril 5/40, patient will have a fasting blood work in 1 week and follow-up in 1 month (2) Vertigo: Code(s): R42 - Dizziness and giddiness Plan: For new onset vertigo with positive Romberg brain MRI will be obtained to rule out cerebellar CVA (3) Hyperlipidemia: Code(s): E78.5 - Hyperlipidemia, unspecified Plan: Continue statin check lipid profile Orders: Orders Complete Blood Count Auto Diff Today I10 - Essential (primary) hypertension, R42 - Dizziness and giddiness Comprehensive Met. Panel Today I10 - Essential (primary) hypertension, R42 - Dizziness and giddiness TSH reflex Free T4 Today I10 - Essential (primary) hypertension, R42 - Dizziness and giddiness Vitamin B12 and Folate Today I10 - Essential (primary) hypertension, R42 - Dizziness and giddiness MR head/brain wo con Today I10 - Essential (primary) hypertension, R29.818 - Other symptoms and signs involving the nervous system, R42 - Dizziness and giddiness Lipid Panel Today E78.5 - Hyperlipidemia, unspecified Medications: New amlodipine-benazepril 5-40 mg 1 cap PO DAILY 90 caps 0RF meclizine 25 mg PO BID PRN 20 tabs 0RF dizziness Discontinued amlodipine Discontinued Reason: Doctor's Order 5 mg PO DAILY 90 tabs 3RF lisinopril Discontinued Reason: Doctor's Order 20 mg PO DAILY 90 tabs 3RF aspirin Discontinued Reason: Doctor's Order 81 mg PO DAILY 90 tabs 3RF Coding Level of Care Code Est Pt Level 4 (19003) Diagnoses HTN (hypertension) I10 Vertigo R42 Hyperlipidemia E78.5
== END 2023-11-19 14:36 | disposition home or self-care (01) ==
PROVIDERS: PCP Internal Medicine; Visit Provider Internal Medicine
DX: I10 Essential (primary) hypertension (principal); R42 Dizziness and giddiness; E78.5 Hyperlipidemia, unspecified
CPT/HCPCS: 99214

== ENCOUNTER 2023-11-19 14:41 | Outpatient (REF) | payer BC, SELFPAY ==
[2023-11-19 15:57] LABS: MANUAL DIFF FLAG NO
[2023-11-19 16:10] LABS: Basophils Percent Auto 0.6 % (0-2); Eosinophils Absolute Auto 0.1 X10*3/uL (0.0-0.4); Eosinophils Percent Auto 0.9 % (0-4); Hematocrit 39.3 % (37.0-47.0); Hemoglobin 13.1 g/dl (12.0-16.0); Imm Gran Abs Auto 0.01 X10*3/uL (0.00-0.03); Imm Gran Pct Auto 0.2 % (0.0-0.4); Lymphocytes Absolute Auto 1.9 X10*3/uL (1.2-4.9); Lymphocytes Percent Auto 35.9 % (20-40); Mean Corpuscular HGB Conc 33.3 g/dl (31.0-35.0); Mean Corpuscular Hemoglobin 32.2 pg (27.0-33.0); Mean Corpuscular Volume 96.6 fL (80.0-98.0); Mean Platelet Volume 9.3 fL (9.4-12.3); Monocytes Absolute Auto 0.3 X10*3/uL (0.1-1.2); Neutrophils Percent Auto 56.4 % (45-73); Platelet Count 337 X10*3/uL (160-400); Red Blood Count 4.07 X10*6/uL (4.20-5.50); Red Cell Distribution Width 12.8 % (11.0-16.0); White Blood Count 5.3 X10*3/uL (4.8-10.8)
[2023-11-19 16:42] LABS: Alanine Aminotransferase 24 U/L (0-31); Albumin Level 4.8 g/dL (3.5-5.0); Alkaline Phosphatase 89 U/L (39-117); Anion Gap 14 (12-20); Aspartate Amino Transferase 30 U/L (5-31); Bilirubin Total 0.4 mg/dL (0.0-1.0); Blood Urea Nitrogen 18 mg/dL (9-16); Calcium 9.9 mg/dL (8.4-10.2); Carbon Dioxide 28 mmol/L (22-29); Chloride 103 mmol/L (96-108); Cholesterol 265 mg/dL (<200); Estimated Glomerular Filt Rate > 60; Glucose Random 100 mg/dL (60-115); HDL Cholesterol 61 mg/dL (>40); LDL Cholesterol Calculated 173 mg/dL (<100); Sodium 141 mmol/L (135-145); TSH reflex Free T4 1.97 uIU/mL (0.32-4.0); Total Protein 8.2 g/dL (6.5-8.0); Triglycerides 155 mg/dL (<150)
[2023-11-19 16:54] LABS: Folate 8.4 ng/mL (> or = 4.0); Vitamin B12 597 pg/mL (200-900)
== END 2023-11-19 14:42 | disposition home or self-care (01) ==
LOC: HO.HMGCLDS 14:41
PROVIDERS: PCP Internal Medicine; Visit Provider Internal Medicine
DX: I10 Essential (primary) hypertension (principal); R42 Dizziness and giddiness; E78.5 Hyperlipidemia, unspecified
CPT/HCPCS: 36415; 80053; 80061; 82607; 82746; 84443; 85025

== ENCOUNTER 2024-05-07 10:00 | Outpatient (REF) | payer BC, SELFPAY ==
[2024-05-07 13:32] LABS: Alanine Aminotransferase 29 U/L (0-31); Albumin Level 4.4 g/dL (3.5-5.0); Alkaline Phosphatase 79 U/L (39-117); Anion Gap 10 (12-20); Aspartate Amino Transferase 33 U/L (5-31); Bilirubin Total 0.4 mg/dL (0.0-1.0); Blood Urea Nitrogen 20 mg/dL (9-16); Carbon Dioxide 27 mmol/L (22-29); Chloride 104 mmol/L (96-108); Cholesterol 279 mg/dL (<200); Estimated Glomerular Filt Rate > 60; Glucose Fasting 97 mg/dL (60-99); HDL Cholesterol 55 mg/dL (>40); LDL Cholesterol Calculated 174 mg/dL (<100); Potassium 4.1 mmol/L (3.3-5.1); Sodium 137 mmol/L (135-145); Total Protein 7.6 g/dL (6.5-8.0); Triglycerides 251 mg/dL (<150)
== END 2024-05-07 10:01 | disposition home or self-care (01) ==
LOC: HO.HMGCLDS 10:00
PROVIDERS: PCP Internal Medicine; Visit Provider Internal Medicine
DX: E78.5 Hyperlipidemia, unspecified (principal)
CPT/HCPCS: 36415; 80053; 80061